=== PATIENT | female | born 1940 | race Caucasian/White ===

== ENCOUNTER 2016-08-06 08:00 | Outpatient (CLI) | payer MEDICARE, OTHER | END 2016-08-06 08:01 | disposition home or self-care (01) | LOC: LAB.WCP 08:00 | PROVIDERS: ATTEND Family Medicine | DX: N39.0 Urinary tract infection, site not specified (principal) | CPT/HCPCS: 87086 ==

== ENCOUNTER 2016-09-15 09:13 | Outpatient (CLI) | payer MEDICARE, OTHER ==
[2016-09-15 18:10] LABS: BASOPHILS % (AUTO) 1.2 %; EOSINOPHILS # (AUTO) 0.3 10^3/uL (0.0-0.7); EOSINOPHILS % (AUTO) 6.3 %; HGB - HEMOGLOBIN 13.4 g/dL (12.0-16.0); LYMPHOCYTES # (AUTO) 0.8 10^3/uL (1.5-3.5); LYMPHOCYTES % (AUTO) 19.8 %; MEAN CORPUSCULAR HGB CONC 33.5 g/dL (32.0-36.0); MEAN CORPUSCULAR VOLUME 95.6 fL (81.0-99.0); MEAN PLATELET VOLUME 7.7 fL (7.9-10.8); MONOCYTES # (AUTO) 0.3 10^3/uL (0.0-1.0); MONOCYTES % (AUTO) 7.5 %; NEUTROPHILS # (AUTO) 2.8 10^3/uL (1.5-6.6); NEUTROPHILS % (AUTO) 65.2 %; RED BLOOD COUNT 4.19 10^6/uL (4.20-5.40); UNCORRECTED WHITE BLOOD COUNT 4.3 x10^3/uL; WHITE BLOOD COUNT 4.3 x10^3/uL (4.8-10.8)
[2016-09-15 18:15] LABS: PT - PROTHROMBIN TIME 11.7 secs (9.9-12.6)
[2016-09-15 18:22] LABS: PARTIAL THROMBOPLASTIN TIME 30.2 secs (24.9-33.3)
[2016-09-15 18:36] LABS: CHOL/HDL RATIO 2.8 (<4.4); CHOLESTEROL 132 mg/dL; HDL CHOLESTEROL 48 mg/dL; LDL CHOLESTEROL,DIRECT 68 mg/dL; LDL/HDL RATIO 1.4 (<4.4); TRIGLYCERIDES 96 mg/dL; VLDL CHOLESTEROL 19 mg/dL
== END 2016-09-15 09:14 | disposition home or self-care (01) ==
LOC: LAB.S 09:13
PROVIDERS: ATTEND Internal Medicine Cardiovascular Disease
DX: E78.5 Hyperlipidemia, unspecified (principal)
CPT/HCPCS: 36415; 80061; 82550; 84450; 84460; 85025; 85610; 85730

== ENCOUNTER 2016-12-16 08:00 | Outpatient (CLI) | payer MEDICARE, OTHER ==
[2016-12-16 18:03] LABS: BILIRUBIN,URINE NEGATIVE (NEGATIVE)
[2016-12-16 18:57] LABS: UR CULTURE IF IND INDICATED; WBC,URINE >25 /HPF (0-5)
== END 2016-12-16 08:01 | disposition home or self-care (01) ==
LOC: LAB.R 08:00
PROVIDERS: ATTEND Nurse Practitioner Family
DX: N39.0 Urinary tract infection, site not specified (principal)
CPT/HCPCS: 81001; 87086

== ENCOUNTER 2017-06-22 10:20 | Emergency (ER) | payer MEDICARE, OTHER ==
[2017-06-22 10:26] VITALS: BP 134/89
--- NOTE | 2017-06-22 11:42 | XRAY Report ---
EXAM: LEFT WRIST RADIOGRAPHY EXAM DATE: 06/22/2017 11:28 AM. CLINICAL HISTORY: Trauma. Pain COMPARISON: None. TECHNIQUE: 4 views. FINDINGS: Bones: There is a nondisplaced radial styloid fracture. Ulna is intact. Joints: Degenerative change first metacarpal carpal articulation and triscaphe joint.. No subluxation s. Soft Tissues: Mild soft tissue swelling. IMPRESSION: Nondisplaced intra-articular radial styloid fracture. [facility] Referring Provider Line: [phone] SITE ID: [id number]
--- NOTE | 2017-06-22 13:09 | ED Physician Documentation ---
PD HPI UPPER EXT INJURY - Stated complaint Stated Complaint: LEFT ARM INJ - Chief complaint Chief Complaint: Ext Problem - History obtained from History obtained from: Patient - History of Present Illness Location: Left, Wrist Type of injury: Fall Where injury occurred: Home Timing - onset: How many days ago (2) Timing - duration: Days (2) Timing - details: Abrupt onset, Still present (pain at radial side wrist with bruising over whole wrist.) Worsened by: Moving, Palpating Associated symptoms: Swelling, Discolored. 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: Hysterectomy - Present Medications Home Medications: Ambulatory Orders Medication Instructions Recorded Confirmed Apixaban [Eliquis] 5 mg PO DAILY 06/22/17 06/22/17 Atorvastatin [Lipitor] 20 mg PO DAILY 06/22/17 06/22/17 Carvedilol [Coreg] 40 mg PO BID 06/22/17 06/22/17 Fluticasone/Salmeterol [Advair 1 each IH DAILY 06/22/17 06/22/17 100-50 Diskus] Multivitamin [Multiple Vitamins] 1 each PO DAILY 06/22/17 06/22/17 Ubidecarenone [Co Q-10] 10 mg PO DAILY 06/22/17 06/22/17 - Allergies Allergies/Adverse Reactions: Allergies Allergy/AdvReac Type Severity Reaction Status Date / Time No Known Drug Allergies Allergy Verified 06/22/17 10:26 - Social History Does the pt smoke?: No Smoking Status: Never smoker Does the pt drink ETOH?: No Does the pt have substance abuse?: No - Immunizations Immunizations are current?: Yes - POLST Patient has POLST: No PD ED PE NORMAL - Vitals Vital signs reviewed: Yes - General General: Alert and oriented X 3, No acute distress, Well developed/nourished - HEENT HEENT: Atraumatic - Neck Neck: Supple, no meningeal sign, No bony TTP, No adenopathy - Cardiac Cardiac: RRR, No murmur - Respiratory Respiratory: Clear bilaterally, Other (no chestwall tenderness) - Abdomen Abdomen: Soft, Non tender - Back Back: No spinal TTP - Derm Derm: Normal color, Warm and dry - Extremities Extremities: Other (left wrist tender at distal radius area with some swelling and bruising. Tender locally with less ROM due to pain. ) - Neuro Neuro: Alert and oriented X 3, No motor deficit, No sensory deficit, Normal speech Results - Vitals Vitals: Oxygen O2 Source Room air - Rads (name of study) wrist Radiology: Prelim report reviewed (radial styloid fracture, nondisplaced), EMP read contemporaneously Procedures - Splint (location) left wrist Splint applied by: Tech Type of splint: Prefab velcro wrist Other: Patient tolerated well, No complications, Neurovascular intact PD MEDICAL DECISION MAKING - ED course Complexity details: reviewed results, considered differential, d/w patient Departure - Departure Disposition: 01 Home, Self Care Clinical Impression: Accidental fall Qualifiers: Encounter type: initial encounter Qualified Code(s): W19.XXXA - Unspecified fall, initial encounter Radial styloid fracture Qualifiers: Encounter type: initial encounter Fracture type: closed Fracture alignment: nondisplaced Laterality: left Qualified Code(s): S52.515A - Nondisplaced fracture of left radial styloid process, initial encounter for closed fracture Condition: Stable Record reviewed to determine appropriate education?: Yes Instructions: ED Fx Wrist General Follow-Up: Stewart Keenan MD [Primary Care Provider] - [facility] [Provider Group] Comments: Use a wrist splint for the next 4-6 weeks and treated as a cast meaning have it on most of the time. You do have a fracture at the end of the radius which will need protecting as it heals. Follow-up with your primary care or orthopedics in about a week to have it re-x-rayed and ensure its healing in the right position still. Call today for an appointment. Use Tylenol if needed for pains. Elevate and rest the wrist often today and tomorrow to reduce swelling. Discharge Date/Time: 06/22/17 13:33
== END 2017-06-22 13:33 | disposition home or self-care (01) ==
LOC: ED 10:20
DX: S52.515A Nondisplaced fracture of left radial styloid process, initial encounter for closed fracture (principal); W10.9XXA Fall (on) (from) unspecified stairs and steps, initial encounter; Y92.009 Unspecified place in unspecified non-institutional (private) residence as the place of occurrence of the external cause; I48.91 Unspecified atrial fibrillation; Z79.01 Long term (current) use of anticoagulants
CPT/HCPCS: 99283

== ENCOUNTER 2019-10-12 09:59 | Outpatient (CLI) | payer MEDICARE, OTHER | END 2019-10-12 10:00 | disposition home or self-care (01) | LOC: LAB.S 09:59 | PROVIDERS: ATTEND Family Medicine | DX: I48.91 Unspecified atrial fibrillation (principal); E78.5 Hyperlipidemia, unspecified; L12.0 Bullous pemphigoid | CPT/HCPCS: 36415; 85651; 86038; 86140 ==

== ENCOUNTER 2020-01-20 09:39 | Outpatient (CLI) | payer MEDICARE, OTHER ==
[2020-01-20 15:31] LABS: BASOPHILS # (AUTO) 0.1 10^3/uL (0.0-0.1); BASOPHILS % (AUTO) 1.3 %; EOSINOPHILS # (AUTO) 0.5 10^3/uL (0.0-0.7); EOSINOPHILS % (AUTO) 8.4 %; HGB - HEMOGLOBIN 13.8 g/dL (12.0-16.0); LYMPHOCYTES % (AUTO) 18.4 %; MEAN CORPUSCULAR HEMOGLOBIN 30.8 pg (27.0-31.0); MEAN CORPUSCULAR HGB CONC 31.4 g/dL (32.0-36.0); MEAN CORPUSCULAR VOLUME 98.2 fL (81.0-99.0); MEAN PLATELET VOLUME 10.1 fL (7.9-10.8); MONOCYTES # (AUTO) 0.6 10^3/uL (0.0-1.0); MONOCYTES % (AUTO) 10.4 %; NEUTROPHILS # (AUTO) 3.4 10^3/uL (1.5-6.6); NEUTROPHILS % (AUTO) 61.3 %; PLT - PLATELET COUNT 314 10^3/uL (130-450); RED BLOOD COUNT 4.48 10^6/uL (4.20-5.40); RED CELL DISTRIBUTION WIDTH 13.4 % (12.0-15.0); WHITE BLOOD COUNT 5.5 x10^3/uL (4.8-10.8)
[2020-01-20 15:51] LABS: ALBUMIN 4.4 g/dL (3.2-5.5); ALBUMIN/GLOBULIN RATIO 1.7 (1.0-2.2); ALKALINE PHOSPHATASE 61 IU/L (42-121); ALT ALANINE AMINOTRANSFERASE 12 IU/L (10-60); AST ASPARTATE AMINOTRANSFERASE 20 IU/L (10-42); BILIRUBIN,TOTAL 1.1 mg/dL (0.2-1.0); BUN - BLOOD UREA NITROGEN 12 mg/dL (6-20); CALCIUM 9.3 mg/dL (8.5-10.3); CARBON DIOXIDE - CO2 28 mmol/L (21-32); CHLORIDE 101 mmol/L (101-111); CHOL/HDL RATIO 2.5 (<4.4); CHOLESTEROL 142 mg/dL; CREATININE 0.8 mg/dL (0.4-1.0); GLUCOSE 91 mg/dL (70-100); HDL CHOLESTEROL 57 mg/dL; LDL CHOLESTEROL,CALCULATED 67 mg/dL; LDL/HDL RATIO 1.2 (<4.4); SODIUM 137 mmol/L (135-145); VLDL CHOLESTEROL 18 mg/dL
== END 2020-01-20 09:40 | disposition home or self-care (01) ==
LOC: LAB.S 09:39
PROVIDERS: ATTEND Internal Medicine
DX: Z00.00 Encounter for general adult medical examination without abnormal findings (principal); E78.5 Hyperlipidemia, unspecified
CPT/HCPCS: 36415; 80053; 80061; 83721; 85025

== ENCOUNTER 2020-02-12 07:11 | Outpatient (CLI) | payer MEDICARE, OTHER ==
--- NOTE | 2020-02-15 11:18 | Ultrasound Report ---
ULTRASOUND OF LEFT AXILLA: 02/12/2020 CLINICAL: Focal left AXILLA pain. [facility] Mammograms 08/15/2015, 08/12/2013. Color flow and real-time ultrasound of the left axilla were performed. Carlson scale images of the real -time examination were reviewed. In the area of concern in the left axilla are several small lymph nodes. There is one node which is enlarged measuring 3.3 cm x 1.7 cm x 0.7 cm with a oval shape and circumsc ribed margin in the left axilla. This oval enlarged lymph node is hyperechoic with fatty hilum. Sarkis ical thickness measures 1 mm. This correlates to the reported pain. Color flow imaging demonstrates that there is vascularity present. No fluid collection or mass. IMPRESSION: PROBABLY BENIGN Enlarged left axillary lymph node in the region of pain measuring 3.3 cm x 1.7 cm x 0.7 cm. No cortic al thickening. This node is probably benign. -A follow-up left axillary ultrasound in 3 months is recommended. Last screening mammogram done in August 2015. Patient is due for screening mammogram now. This exam was interpreted at Station ID: [id number]. Electronically Signed By: Rusty Rutherford M.D. slc/:02/15/2020 10:26:27 Ultrasound BI-RADS: 3 Probably benign BI-RADS CATEGORY: (3) - 3 Ultrasound [id number] 3 month follow-up LATERALITY: (B)
== END 2020-02-12 07:12 | disposition home or self-care (01) ==
LOC: DI 07:11
PROVIDERS: ATTEND Internal Medicine
DX: R59.0 Localized enlarged lymph nodes (principal)

== ENCOUNTER 2020-02-23 11:39 | Outpatient (CLI) | payer MEDICARE, OTHER ==
[2020-02-23 12:07] LABS: ALBUMIN 4.2 g/dL (3.2-5.5); ALBUMIN/GLOBULIN RATIO 1.6 (1.0-2.2); BILIRUBIN,TOTAL 0.7 mg/dL (0.2-1.0); CALCIUM 9.3 mg/dL (8.5-10.3); CREATININE 0.9 mg/dL (0.4-1.0); TOTAL PROTEIN 6.8 g/dL (6.7-8.2)
[2020-02-23] MEDS ORDERED: IOVERSOL 320 100 ML VIAL IVP ONE ×2 (12:55→14:29)
--- NOTE | 2020-02-23 16:48 | CT Report ---
PROCEDURE: CHEST W INDICATIONS: AXILLA LYMPHADENOPATHY CONTRAST: IV CONTRAST: Optiray 320 ml: 100 PO CONTRAST: *NO PO CONTRAST TECHNIQUE: After the administration of intravenous contrast, 5 mm thick sections acquired from the pulmonary api adrienne to the posterior costophrenic angles. 7 mm thick coronal MIP reformats were acquired. For radia tion dose reduction, the following was used: automated exposure control, adjustment of mA and/or kV according to patient size. COMPARISON: Axillary ultrasound 02/12/2020. FINDINGS: Image quality: Excellent. Lungs and pleura: There is mild linear atelectasis and scarring in the lung bases. No suspicious nodu les or masses. No pleural effusions or pneumothorax. Central and peripheral airways are patent and n ormal in caliber. Mediastinum: Heart size is enlarged. There is a small pericardial effusion. No mediastinal or hilar adenopathy by size criteria. Thoracic aorta and central pulmonary arteries are normal in size. Eso phagus is normal in caliber. No hiatal hernia. Bones and chest wall: No suspicious bony lesions. No vertebral body compression fractures. No axil raffi or supraclavicular adenopathy by size criteria. There are a few small bilateral axillary lymph n odes with preserved fatty andrew noted. Multiple bilateral peripherally enhancing thyroid nodules are d emonstrated, with the largest measuring up to 2.1 cm in the left lobe. Abdomen: Visualized upper abdomen demonstrates a few small hypodensities within the visualized left kidney likely representing small cysts. IMPRESSION: 1. No evidence of axillary lymphadenopathy by size criteria. 2. Small pericardial effusion. 3. Multiple bilateral thyroid nodules measuring up to 2.1 cm on the left. Recommend further evaluatio n with thyroid ultrasound if clinically indicated. Reviewed by: Sergio Pham MD on 02/23/2020 4:47 PM PST Approved by: Sergio Pham MD on 02/23/2020 4:47 PM PST Station ID: [id number]
== END 2020-02-23 11:40 | disposition home or self-care (01) ==
LOC: DI 11:39
PROVIDERS: ATTEND Internal Medicine
DX: R59.0 Localized enlarged lymph nodes (principal); I31.3 Pericardial effusion (noninflammatory); E04.2 Nontoxic multinodular goiter; E78.5 Hyperlipidemia, unspecified
CPT/HCPCS: 36415; 71260; 80053; Q9967

== ENCOUNTER 2020-04-02 09:42 | Outpatient (CLI) | payer MEDICARE, OTHER ==
--- NOTE | 2020-04-02 15:15 | Ultrasound Report ---
PROCEDURE: Head or Neck Soft Tissue INDICATIONS: LEFT THYROID NODULE TECHNIQUE: Real-time scanning was performed of the thyroid gland, with image documentation. COMPARISON: CT chest 02/23/2020. FINDINGS: Right: Thyroid lobe measures 5 x 2.2 x 1.8 cm, and is homogeneous in echotexture. Left: Thyroid lobe measures 6.4 x 2.7 x 1.6 cm, and is homogenous in echotexture. Isthmus: 4 mm thick. Nodule number: One Location: Right superior Size: 2 x 1.7 x 1.6 cm. Composition: Prominently solid Echogenicity: Isoechoic Shape: wider than tall. Margins: Smooth Echogenic foci: None Total points: 3 ACR TI-RADS category: TR 3, mildly suspicious Nodule number: Two Location: Right mid Size: 2.5 x 2 x 1.5 cm. Composition: Prominently solid Echogenicity: Isoechoic Shape: wider than tall. Margins: Smooth Echogenic foci: None Total points: 3 ACR TI-RADS category: TR 3, mildly suspicious Nodule number: Three Location: Left inferior Size: 2.6 x 2.2 x 1.8 cm. Composition: Mixed cystic and solid Echogenicity: Hypoechoic Shape: wider than tall. Margins: Smooth Echogenic foci: Macrocalcification Total points: 4 ACR TI-RADS category: TR 4, moderately suspicious Nodule number: Four Location: Left isthmus Size: 1.2 x 1.2 x 0.7 cm. Composition: Solid Echogenicity: Hypoechoic Shape: wider than tall. Margins: Smooth Echogenic foci: None Total points: 4 ACR TI-RADS category: TR 4, moderately suspicious IMPRESSION: Multiple thyroid nodules. 1. Left inferior thyroid nodule measuring 2.6 cm, TI-RADS 4. Moderately suspicious. -FNA is recommended. 2. Right mid thyroid nodule measuring 2.5 cm, TI-RADS 3. Mildly suspicious. -FNA should be considered. 3. Additionally recommend follow-up thyroid ultrasound in one year. Reviewed by: Rusty Rutherford MD on 04/02/2020 3:14 PM PST Approved by: Rusty Rutherford MD on 04/02/2020 3:14 PM PST Station ID: [id number]
== END 2020-04-02 09:43 | disposition home or self-care (01) ==
LOC: DI 09:42
PROVIDERS: ATTEND Internal Medicine
DX: E04.2 Nontoxic multinodular goiter (principal)

== ENCOUNTER 2020-04-17 12:58 | Outpatient (CLI) | payer MEDICARE, OTHER ==
[~2020-04-17 12:58] MED LIST: BUFFERED LIDOCAINE 10 ML SYRINGE ONE
[2020-04-17] MEDS ORDERED: BUFFERED LIDOCAINE 10 ML SYRINGE IU ONE (14:57)
--- NOTE | 2020-04-18 11:08 | Ultrasound Report ---
PROCEDURE: FNA Bx w/US Gnd 1st les INDICATIONS: BILAT THYROID NODULE TECHNIQUE: The indications, alternatives, benefits, risks, and complications of the procedure were explained to the patient. Written informed consent was obtained and placed in the chart. The area of interest wa s examined sonographically and a site was chosen for ultrasound guided percutaneous sampling. The sk in was prepared and draped in the usual fashion, and anesthetized with 1% lidocaine infiltrated from the skin down to the lesion. Multiple passes were then performed, with [facility]. A bandage was applied to the area of access at completion of t he study. COMPARISON: None. FINDINGS: Location(s) of lesion(s) sampled: Right mid thyroid lobe [place]: 25 gauge hypodermic needles. Number of passes: 6 Medications: 1% lidocaine for local anaesthesia. Complications: None. IMPRESSION: Successful ultrasound-guided right thyroid nodule fine needle aspiration. Cytology results are pendin g. Reviewed by: Edin Mcrae MD on 04/18/2020 11:07 AM [facility] Approved by: Edin Mcrae MD on 04/18/2020 11:07 AM PST Station ID: [id number]
--- NOTE | 2020-04-18 11:08 | Ultrasound Report ---
PROCEDURE: FNA Bx w/US Gdn Ea Addl INDICATIONS: BILAT THYROID NODULES- BILAT FNA TECHNIQUE: The indications, alternatives, benefits, risks, and complications of the procedure were explained to the patient. Written informed consent was obtained and placed in the chart. The area of interest wa s examined sonographically and a site was chosen for ultrasound guided percutaneous sampling. The sk in was prepared and draped in the usual fashion, and anesthetized with 1% lidocaine infiltrated from the skin down to the lesion. Multiple passes were then performed, with contents emptied into an appr [facility] pathology specimen container. A bandage was applied to the area of access at completion of t he study. COMPARISON: None. FINDINGS: Location(s) of lesion(s) sampled: Left inferior thyroid lobe [place]: 25 gauge hypodermic needles. Number of passes: 6 Medications: 1% lidocaine for local anaesthesia. Complications: None. IMPRESSION: Successful ultrasound-guided left inferior thyroid lobe nodule fine needle aspiration, with cytology results pending. Reviewed by: Edin Mcrae MD on 04/18/2020 11:07 AM PST Approved by: Edin Mcrae MD on 04/18/2020 11:07 AM PST Station ID: [id number]
== END 2020-04-17 12:59 | disposition home or self-care (01) ==
LOC: DI 12:58
PROVIDERS: ATTEND Internal Medicine
DX: E04.2 Nontoxic multinodular goiter (principal)
CPT/HCPCS: 10005; 10006

== ENCOUNTER 2020-05-21 11:10 | Outpatient (CLI) | payer MEDICARE, OTHER ==
[2020-05-21 14:49] LABS: ALBUMIN 4.3 g/dL (3.2-5.5); ALBUMIN/GLOBULIN RATIO 1.7 (1.0-2.2); BILIRUBIN,TOTAL 1.1 mg/dL (0.2-1.0); CALCIUM 9.5 mg/dL (8.5-10.3); CREATININE 0.9 mg/dL (0.4-1.0); POTASSIUM 4.6 mmol/L (3.5-5.0); TOTAL PROTEIN 6.9 g/dL (6.7-8.2)
[2020-05-21 14:52] LABS: BASOPHILS # (AUTO) 0.1 10^3/uL (0.0-0.1); BASOPHILS % (AUTO) 0.8 %; EOSINOPHILS # (AUTO) 0.1 10^3/uL (0.0-0.7); EOSINOPHILS % (AUTO) 1.7 %; HCT - HEMATOCRIT 45.5 % (37.0-47.0); HGB - HEMOGLOBIN 14.9 g/dL (12.0-16.0); LYMPHOCYTES # (AUTO) 0.7 10^3/uL (1.5-3.5); LYMPHOCYTES % (AUTO) 9.3 %; MEAN CORPUSCULAR HEMOGLOBIN 31.8 pg (27.0-31.0); MEAN CORPUSCULAR HGB CONC 32.7 g/dL (32.0-36.0); MEAN PLATELET VOLUME 9.8 fL (7.9-10.8); MONOCYTES # (AUTO) 0.6 10^3/uL (0.0-1.0); MONOCYTES % (AUTO) 7.6 %; NEUTROPHILS # (AUTO) 6.2 10^3/uL (1.5-6.6); NEUTROPHILS % (AUTO) 80.3 %; PLT - PLATELET COUNT 317 10^3/uL (130-450); RED BLOOD COUNT 4.69 10^6/uL (4.20-5.40); RED CELL DISTRIBUTION WIDTH 15.6 % (12.0-15.0); WHITE BLOOD COUNT 7.7 x10^3/uL (4.8-10.8)
== END 2020-05-21 11:11 | disposition home or self-care (01) ==
LOC: LAB.S 11:10
PROVIDERS: ATTEND Internal Medicine
DX: I10 Essential (primary) hypertension (principal)
CPT/HCPCS: 36415; 80053; 85025

== ENCOUNTER 2020-07-25 07:47 | Outpatient (CLI) | payer MEDICARE, OTHER ==
[2020-07-25 14:20] LABS: BASOPHILS # (AUTO) 0.1 10^3/uL (0.0-0.1); BASOPHILS % (AUTO) 1.1 %; EOSINOPHILS # (AUTO) 0.3 10^3/uL (0.0-0.7); HCT - HEMATOCRIT 44.4 % (37.0-47.0); HGB - HEMOGLOBIN 14.1 g/dL (12.0-16.0); LYMPHOCYTES # (AUTO) 0.7 10^3/uL (1.5-3.5); LYMPHOCYTES % (AUTO) 13.3 %; MEAN CORPUSCULAR HEMOGLOBIN 32.1 pg (27.0-31.0); MEAN CORPUSCULAR HGB CONC 31.8 g/dL (32.0-36.0); MEAN CORPUSCULAR VOLUME 101.1 fL (81.0-99.0); MEAN PLATELET VOLUME 10.4 fL (7.9-10.8); MONOCYTES # (AUTO) 0.5 10^3/uL (0.0-1.0); MONOCYTES % (AUTO) 8.8 %; NEUTROPHILS % (AUTO) 71.4 %; PLT - PLATELET COUNT 288 10^3/uL (130-450); RED BLOOD COUNT 4.39 10^6/uL (4.20-5.40); WHITE BLOOD COUNT 5.6 x10^3/uL (4.8-10.8)
[2020-07-25 14:36] LABS: ALBUMIN 4.3 g/dL (3.2-5.5); ALBUMIN/GLOBULIN RATIO 1.5 (1.0-2.2); ALKALINE PHOSPHATASE 57 IU/L (42-121); ALT ALANINE AMINOTRANSFERASE 18 IU/L (10-60); AST ASPARTATE AMINOTRANSFERASE 28 IU/L (10-42); BUN - BLOOD UREA NITROGEN 15 mg/dL (6-20); CALCIUM 9.4 mg/dL (8.5-10.3); CARBON DIOXIDE - CO2 28 mmol/L (21-32); CHLORIDE 99 mmol/L (101-111); CHOL/HDL RATIO 2.8 (<4.4); CHOLESTEROL 161 mg/dL; CREATININE 0.9 mg/dL (0.4-1.0); GFR - MDRD 60 (>89); GLUCOSE 97 mg/dL (70-100); HDL CHOLESTEROL 57 mg/dL; LDL CHOLESTEROL,CALCULATED 84 mg/dL; LDL/HDL RATIO 1.5 (<4.4); POTASSIUM 4.3 mmol/L (3.5-5.0); SODIUM 137 mmol/L (135-145); TOTAL PROTEIN 7.1 g/dL (6.7-8.2); TRIGLYCERIDES 99 mg/dL; VLDL CHOLESTEROL 20 mg/dL
== END 2020-07-25 07:48 | disposition home or self-care (01) ==
LOC: LAB.S 07:47
PROVIDERS: ATTEND Internal Medicine
DX: I10 Essential (primary) hypertension (principal); E87.1 Hypo-osmolality and hyponatremia; E78.5 Hyperlipidemia, unspecified
CPT/HCPCS: 36415; 80053; 80061; 83721; 85025

== ENCOUNTER 2020-08-10 08:33 | Inpatient (IN) | payer MEDICARE, OTHER ==
[2020-08-10] MEDS ORDERED: ceFAZolin 2 GM/50 ML 2 GM/50 ML BAG IV STA (09:31)
[2020-08-10] MEDS ORDERED: SODIUM CHLORIDE 0.9% 1,000 ML IV STA (09:32)
--- NOTE | 2020-08-10 09:35 | ED Physician Documentation ---
History of Present Illness - Stated complaint Stated Complaint: SWELLING LT HAND - Chief complaint Chief Complaint: Ext Problem - History obtained from History obtained from: Patient, Family - History of Present Illness Timing: Yesterday - Additonal information Additional information: 80-year-old female developed some swelling and redness to the dorsum of the left hand yesterday and overnight this is progressed it has become painful warm erythematous and there is lymphangitic streaking present. The patient has not had a fever she has chills. She is fully immunized against Covid. Review of Systems Constitutional: reports: Chills. denies: Fever Eyes: denies: Decreased vision Ears: denies: Ear pain Nose: denies: Rhinorrhea / runny nose, Congestion Throat: denies: Sore throat Cardiac: denies: Chest pain / pressure, Palpitations Respiratory: denies: Dyspnea, Cough GI: denies: Abdominal Pain, Nausea, Vomiting : denies: Dysuria, Frequency Skin: reports: Other (discoloration of the dorsum of the left hand) Musculoskeletal: reports: Extremity pain, Extremity swelling. 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 - Present Medications Home Medications: Ambulatory Orders Medication Instructions Recorded Confirmed Apixaban [Eliquis] 5 mg PO DAILY 06/22/17 06/22/17 Atorvastatin [Lipitor] 20 mg PO DAILY 06/22/17 06/22/17 Fluticasone/Salmeterol [Advair 1 each IH DAILY 06/22/17 06/22/17 100-50 Diskus] Multivitamin [Multiple Vitamins] 1 each PO DAILY 06/22/17 06/22/17 Ubidecarenone [Co Q-10] 10 mg PO DAILY 06/22/17 06/22/17 carvediloL [Coreg] 40 mg PO BID 06/22/17 06/22/17 - Allergies Allergies/Adverse Reactions: Allergies Allergy/AdvReac Type Severity Reaction Status Date / Time No Known Drug Allergies Allergy Verified 08/10/20 09:03 - Social History Does the pt smoke?: No Smoking Status: Never smoker Does the pt drink ETOH?: No Does the pt have substance abuse?: No - Immunizations Immunizations are current?: Yes - POLST Patient has POLST: No PD ED PE NORMAL - Vitals Vital signs reviewed: Yes (hypertensive ) - General General: Alert and oriented X 3, No acute distress, Well developed/nourished - HEENT HEENT: Atraumatic, PERRL, EOMI - Neck Neck: Supple, no meningeal sign, No bony TTP - Cardiac Cardiac: Other (Irregularly irregular rate with a 1 out of 6 holosystolic murmur at the sternal border.) - Respiratory Respiratory: No respiratory distress, Clear bilaterally - Abdomen Abdomen: Normal bowel sounds, Soft, Non tender, Non distended, No organomegaly - Back Back: No CVA TTP, No spinal TTP - Derm Derm: Normal color, Warm and dry, Other (Erythema swelling and lymphangitic streaking to the left hand and arm) - Extremities Extremities: Other (Over the dorsum of the left hand to about the mid proximal phalanx there is swelling and erythema tenderness that extends to the proximal wrist and there is lymphangitic streaking extending up to the arm. There is more than 1 lymphangitic streak.) - Neuro Neuro: Alert and oriented X 3, car painter 2-12 intact, No motor deficit, No sensory deficit, Normal speech Eye Opening: Spontaneous Motor: Obeys Commands Verbal: Oriented GCS Score: 15 - Psych Psych: Normal mood, Normal affect Results - Vitals Vitals: Vital Signs - 24 hr 08/10/20 08:56 Temperature 36.9 C Heart Rate 98 Respiratory 16 Rate Blood Pressure 139/83 H O2 Saturation 95 Oxygen O2 Source Room air - Labs Labs: Laboratory Tests 08/10/20 08/10/20 08/10/20 09:46 09:46 09:46 WBC 14.2 H RBC 4.40 Hgb 14.5 Hct 44.0 MCV 100.0 H MCH 33.0 H MCHC 33.0 RDW 14.0 Plt Count 246 MPV 9.3 Neut # (Auto) 12.6 H Lymph # (Auto) 0.4 L Frontier # (Auto) 1.0 Eos # (Auto) 0.1 Baso # (Auto) 0.1 Absolute Nucleated RBC 0.00 Nucleated RBC % 0.0 Sodium 135 Potassium 3.7 Chloride 96 L Carbon Dioxide 28 Anion Gap 11.0 BUN 11 Creatinine 0.9 Estimated GFR (MDRD) 60 L Glucose 98 Lactic Acid 1.1 Calcium 9.4 Total Bilirubin 1.4 H AST 25 ALT 17 Alkaline Phosphatase 65 Total Protein 7.3 Albumin 4.6 Globulin 2.7 Albumin/Globulin Ratio 1.7 PD MEDICAL DECISION MAKING - ED course Complexity details: reviewed old records, reviewed results, re-evaluated p atient, considered differential, d/w patient ED course: 80-year-old female with history of atrial fibrillation on Eliquis and history of asthma has developed some swelling to her left hand and she has a aggressive appearing cellulitis with lymphangitic streaking and this evolves during the period of time she is in the emergency department. She has elevated white blood cell count. She does not have fever or elevated lactate. The pace of the infection is concerning and trial of outpatient antibiotic therapy is not indicated. Departure - Departure Disposition: [facility] DC/Xfer Clinical Impression: Cellulitis Qualifiers: Site of cellulitis: extremity Site of cellulitis of extremity: upper extremity Laterality: left Qualified Code(s): L03.114 - Cellulitis of left upper limb Condition: Stable
--- OUTSIDE RECORDS SUMMARY | 2020-08-10 09:49 | EXTERNAL MEDICAL SUMMARY RPT | Continuity of Care Document ---
:1940 Demographics Phone Unavailable Preferred Language Unknown Marital Status Unknown Amish Affiliation Unknown Race Unknown Ethnic Group Unknown Author Organization [place] Address [address] [phone] Phone Allergies Encounters Medications Problems Results
[2020-08-10 09:52] LABS: BASOPHILS # (AUTO) 0.1 10^3/uL (0.0-0.1); BASOPHILS % (AUTO) 0.4 %; EOSINOPHILS # (AUTO) 0.1 10^3/uL (0.0-0.7); EOSINOPHILS % (AUTO) 0.4 %; HGB - HEMOGLOBIN 14.5 g/dL (12.0-16.0); LYMPHOCYTES # (AUTO) 0.4 10^3/uL (1.5-3.5); MEAN PLATELET VOLUME 9.3 fL (7.9-10.8); MONOCYTES % (AUTO) 7.2 %; NEUTROPHILS # (AUTO) 12.6 10^3/uL (1.5-6.6); NEUTROPHILS % (AUTO) 88.6 %; PLT - PLATELET COUNT 246 10^3/uL (130-450); WHITE BLOOD COUNT 14.2 x10^3/uL (4.8-10.8)
[2020-08-10 10:06] LABS: ALBUMIN 4.6 g/dL (3.2-5.5); ALBUMIN/GLOBULIN RATIO 1.7 (1.0-2.2); BILIRUBIN,TOTAL 1.4 mg/dL (0.2-1.0); CALCIUM 9.4 mg/dL (8.5-10.3); CREATININE 0.9 mg/dL (0.4-1.0); POTASSIUM 3.7 mmol/L (3.5-5.0); TOTAL PROTEIN 7.3 g/dL (6.7-8.2)
[2020-08-10] MEDS ORDERED: ONDANSETRON 4 MG/2 ML VIAL IVP PRN (11:24)
[2020-08-10] MEDS ORDERED: MORPHINE 2 MG/ML CARPUJECT IVP PRN (11:24)
[2020-08-10] MEDS ORDERED: SODIUM CHLORIDE FLUSH 0.9% 10 ML SYRINGE IVP PRN (11:24)
[2020-08-10] MEDS ORDERED: oxyCODONE 5 MG TABLET PO PRN (11:24)
[2020-08-10] MEDS ORDERED: METOPROLOL 5 MG/5 ML VIAL IVP PRN (11:28)
--- NOTE | 2020-08-10 11:51 | HISTORY & PHYSICAL EXAMINATION ---
Chief Complaint - Chief Complaint Chief Complaint: left hand swelling and pain History of Present Illness - Admitted From Admitted From:: ER - History Obtained From Records Reviewed: [facility] History obtained from: pt Exam Limitations: no - History of Present Illness HPI Comment/Other: This is a 80-year-old female with history of atrial fibrillation on Eliquis, Hyperlipidemia, asthma who complain of pain, erythema, swelling to the dorsum of her left hand. pt report she developed swelling, warmth of her left dorsal on la st night then she felt very painful, and develop erythema lymphangitic streaking up to her left shoulder very fast. She denies injury on her hand. she denies fever, chill. Route lab show elevated white blood cell count, normal arrange lactic acid. she denies chest pain, cough, shortness of breath. Discussed the care goal with patient, patient requests full code. 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 - Family & Social History Family History: Mother: , Father: Family History Comment/Other: Patient report her father at age 90 from aging, her mother at age 82 from heart attack Social History Notes: Patient denies history of cigarette smoking, alcohol or drug issue - POLST Patient has POLST: No Meds/Allgy - Home Medications Home Medications: Ambulatory Orders Medication Instructions Recorded Confirmed Apixaban [Eliquis] 5 mg PO BID 06/22/17 08/10/20 Atorvastatin [Lipitor] 20 mg PO DAILY 06/22/17 08/10/20 Multivitamin [Multiple Vitamins] 1 each PO DAILY 06/22/17 08/10/20 Ubidecarenone [Co Q-10] 10 mg PO DAILY 06/22/17 08/10/20 carvediloL [Coreg] 40 mg PO BID 06/22/17 08/10/20 Amiodarone [Pacerone] 200 mg PO DAILY 08/10/20 08/10/20 Cholecalciferol (Vitamin D3) 25 mcg PO DAILY 08/10/20 08/10/20 [Vitamin D3] Fluticasone Propion/Salmeterol 1 inh PO BID 08/10/20 08/10/20 [Wixela 100-50 Inhub] Metoprolol Tartrate [Lopressor] 50 mg PO BID 08/10/20 08/10/20 - Allergies Allergies/Adverse Reactions: Allergies Allergy/AdvReac Type Severity Reaction Status Date / Time No Known Drug Allergies Allergy Verified 08/10/20 09:03 Review of Systems - Constitutional Constitutional: denies: Fatigue, Fever, Chills, Malaise, Night sweats - Eyes Eyes: denies: Pain, Blurred vision, Field loss, Vision loss - Ears, Nose & Throat Ears, Nose & Throat: denies: Ear pain, Nosebleeds, Bleeding gums - Cardiovascular Cariovascular: denies: Irregular heart rate, Palpitations, Chest pain, Edema, Lightheadedness, Syncope, Exertional dyspnea, Decr. exercise tolerance - Respiratory Respiratory: denies: Cough, Sputum production, Wheezing, SOB at rest, SOB with exertion - Gastrointestinal Gastrointestinal: denies: Abdominal pain, Constipation, Diarrhea, Rectal bleeding, Nausea, Vomiting - Genitourinary Genitourinary: denies: Dysuria, Urgency, Incontinence - Musculoskeletal Musculoskeletal: denies: Muscle pain, Muscle aches - Integumentary Integumentary: reports: Rash. denies: Lesions, Lumps - Neurological Neurological: denies: General weakness, Focal weakness, Headache, Dizziness, Numbness, Memory problems, Pre-existing deficit, Abnormal gait, Seizures, Incoordination, Slurred speech - Psychiatric Psychiatric: denies: Depression, Anxiety - Endocrine Endocrine: denies: Polyuria, Polyphagia - Hematologic/Lymphatic Hematologic/Lymphatic: denies: Anemia Prior Level of Functionality: Patient is independent at home Exam - Vital Signs Vital Signs: Vital Signs x48h Temp Pulse Resp BP Pulse Ox 08/10/20 11:11 98 18 115/79 96 08/10/20 08:56 36.9 C 98 16 139/83 H 95 - Physical Exam General Appearance: positive: No acute distress, Alert. negative: Lethargic Eyes Bilateral: positive: Normal inspection, PERRL, No lid inflammation ENT: positive: ENT inspection nml, No signs of dehydration. negative: Purulent nasal drainage Neck: positive: Nml inspection, Trachea midline. negative: Thyromegaly, Tracheal deviation Respiratory: positive: Chest non-tender, No respiratory distress, Breath sounds nml. negative: Wheezes, Rales Cardiovascular: positive: Regular rate & rhythm, No murmur. negative: Tachycardia, Bradycardia, Systolic murmur, Diastolic murmur Peripheral Pulses: positive: 2+ Abdomen: positive: Non-tender, Nml bowel sounds, No distention. negative: Tenderness, Guarding Back: positive: Nml inspection Skin: positive: Warm, Dry, Other (left dosrum of hand with mild swelling, mild erythma, but warmth. distal fingers with intact neurovascular status). negative: Cyanosis, Diaphoresis, Pallor Extremities: positive: Non-tender, Full ROM. negative: Calf tenderness Neurologic/Psychiatric: positive: Oriented x3, Motor nml, Sensation nml, Mood/affect nml. negative: Weakness, Sensory loss, Facial droop, Slurred/abnml speech, Depressed mood/affect Sepsis Event Note (H) - Evaluation Current Stage of Sepsis: Ruled out Conclusion/Plan - Problem List (1) Cellulitis Conclusion/Plan: Patient present cellulitis on left dorsal of the hand. Patient was treated with Ancef, patient is with good response to the antibiotics. Patient's erythema, swelling on left hand is significantly Reduced. blood culture is pending, will continue ancef IV, IVF, lab and vital monitor. Qualifiers: Site of cellulitis: extremity Site of cellulitis of extremity: upper extremity Laterality: left Qualified Code(s): L03.114 - Cellulitis of left upper limb (2) Afib Conclusion/Plan: HR is stable, will resume home Coreg, Amiodarone, Eliquis, continue tele monitor (3) HLD (hyperlipidemia) Conclusion/Plan: resume home Lipitor (4) Asthma Conclusion/Plan: stable, Albuterol PRN, resume home meds - Lab Results Fish Bones: 08/10/20 09:46 08/10/20 09:46 Core Measures - Anticipated LOS I expect patient to be DC'd or transferred within 96 hours.: Yes - DVT/VTE - Prophylaxis VTE/DVT Device ordered at admit?: Yes VTE/DVT Prophylaxis med ordered at admit?: Yes
--- OUTSIDE RECORDS SUMMARY | 2020-08-10 11:56 | EXTERNAL MEDICAL SUMMARY RPT | Continuity of Care Document ---
:1940 Demographics Phone Unavailable Preferred Language Unknown Marital Status Unknown Worship Affiliation Unknown Race Unknown Ethnic Group Unknown Author Organization [facility] Address [address] [phone] Phone Allergies Encounters Medications Problems Results
[2020-08-10 12:43] LABS: BILIRUBIN,URINE NEGATIVE (NEGATIVE); GLUCOSE, URINE (UA) NEGATIVE (NEGATIVE); KETONES,URINE (UA) 15 mg/dL (NEGATIVE); LEUKOCYTE ESTERASE, URINE NEGATIVE (NEGATIVE); NITRITE,URINE NEGATIVE (NEGATIVE); OCCULT BLOOD,URINE NEGATIVE (NEGATIVE); PROTEIN,URINE NEGATIVE (NEGATIVE); UROBILINOGEN,URINE 0.2 (NORMAL) E.U./dL (NORMAL)
[2020-08-10 12:50] LABS: BACTERIA,URINE Rare /HPF (None Seen); CLARITY,URINE CLEAR (CLEAR); RBC,URINE None Seen /HPF (0-5); SQUAMOUS EPITHELIAL CELL,UR RARE Squamous (<= Few); WBC,URINE 0-3 /HPF (0-5)
[2020-08-10] MEDS: SODIUM CHLORIDE 0.9% 1,000 ML IV SCH ×2 (12:52→21:04)
[2020-08-10 13:41] LABS: B. PARAPERTUSSIS- RESP PCR PAN NOT DETECTED; B. PERTUSSIS- RESP PCR PANEL NOT DETECTED; C. PNEUMONIAE- RESP PCR PANEL NOT DETECTED; CORONAVIRUS 229E-RESP PCR NOT DETECTED; CORONAVIRUS HKU1-RESP PCR NOT DETECTED; CORONAVIRUS NL63-RESP PCR NOT DETECTED; CORONAVIRUS OC43-RESP PCR NOT DETECTED; HUMAN METAPNEUMOVIRUS NOT DETECTED; INFLUENZA A- RESP PCR PANEL NOT DETECTED; INFLUENZA B - RESP PCR PANEL NOT DETECTED; M. PNEUMONIAE- RESP PCR PANEL NOT DETECTED; PARAINFLUENZA VIRUS 1 NOT DETECTED; PARAINFLUENZA VIRUS 2 NOT DETECTED; PARAINFLUENZA VIRUS 3 NOT DETECTED; PARAINFLUENZA VIRUS 4 NOT DETECTED; RHINOVIRUS/ENTEROVIRUS NOT DETECTED; RSV- RESP PCR PANEL NOT DETECTED; SARS-CoV-2 -RESP PCR PANEL NOT DETECTED
--- NOTE | 2020-08-10 15:41 | PHARMACY PROGRESS NOTE ---
- Best Possible Medication History Admit Date and Time: 08/10/20 1124 Processed by: Pharmacy Medication History completed: Yes Patient Interview: Completed Secondary Source(s): Physician records, Pharmacy records (PATIENT ABLE TO CONFIRM HOME MEDICATIONS.) As the person ultimately responsible for medication therapy, providers are able to order a medication from an existing home medication list in [facility] via the "Reconcile Routine" prior to Confirmation of that medication by ground support equipment fitter. Such practice is discouraged except when the physician, in their clinical judgment, deems that a medical need exists for a medication without regard to previous use.
[2020-08-10] MEDS: ACETAMINOPHEN 325 MG TABLET PO PRN ×2 (16:09→20:58)
[2020-08-10] MEDS: SODIUM CHLORIDE FLUSH 0.9% 10 ML SYRINGE IVP SCH (16:09)
[2020-08-10] MEDS ORDERED: carvediloL 3.125 MG TABLET PO SCH ×2 (16:10→21:00)
[2020-08-10] MEDS: METOPROLOL TARTRATE 50 MG TABLET PO SCH (16:57)
[2020-08-10] MEDS: ceFAZolin 2 GM/50 ML 2 GM/50 ML BAG IV SCH (17:37)
[2020-08-10] MEDS ORDERED: ceFAZolin 1 GM in SODIUM CHLORIDE 0.9% MINIBAG 100 ML IV SCH (18:00)
[2020-08-10] MEDS: APIXABAN 5 MG TABLET PO SCH (20:58)
[2020-08-10] MEDS: ATORVASTATIN 10 MG TABLET PO SCH (20:58)
[2020-08-10] MEDS ORDERED: SALMETEROL PO SCH (21:00)
[2020-08-10] MEDS ORDERED: FLUTICASONE PROPION PO SCH (21:00)
[2020-08-10] MEDS ORDERED: APIXABAN 5 MG TABLET PO SCH (21:00)
[2020-08-10] MEDS ORDERED: [UNRECOGNIZED DRUG - OTHER] PO SCH (21:00)
[2020-08-11] MEDS: SODIUM CHLORIDE FLUSH 0.9% 10 ML SYRINGE IVP SCH ×3 (00:03→17:55)
[2020-08-11] MEDS: ceFAZolin 2 GM/50 ML 2 GM/50 ML BAG IV SCH ×3 (04:33→17:54)
[2020-08-11 05:05] LABS: BASOPHILS % (AUTO) 0.4 %; EOSINOPHILS # (AUTO) 0.1 10^3/uL (0.0-0.7); EOSINOPHILS % (AUTO) 0.6 %; HCT - HEMATOCRIT 36.9 % (37.0-47.0); LYMPHOCYTES % (AUTO) 9.9 %; MEAN CORPUSCULAR HEMOGLOBIN 32.8 pg (27.0-31.0); MEAN CORPUSCULAR HGB CONC 32.5 g/dL (32.0-36.0); MEAN CORPUSCULAR VOLUME 100.8 fL (81.0-99.0); MEAN PLATELET VOLUME 9.9 fL (7.9-10.8); MONOCYTES # (AUTO) 0.9 10^3/uL (0.0-1.0); MONOCYTES % (AUTO) 8.8 %; NEUTROPHILS # (AUTO) 7.8 10^3/uL (1.5-6.6); PLT - PLATELET COUNT 202 10^3/uL (130-450); RED BLOOD COUNT 3.66 10^6/uL (4.20-5.40); RED CELL DISTRIBUTION WIDTH 14.3 % (12.0-15.0); WHITE BLOOD COUNT 9.7 x10^3/uL (4.8-10.8)
[2020-08-11 05:13] LABS: CALCIUM 8.3 mg/dL (8.5-10.3); CREATININE 0.6 mg/dL (0.4-1.0); POTASSIUM 3.7 mmol/L (3.5-5.0)
[2020-08-11] MEDS: BUDESONIDE 0.5 MG/2 ML NEB INH SCH ×3 (05:42→20:24)
[2020-08-11] MEDS: METOPROLOL TARTRATE 50 MG TABLET PO SCH ×2 (08:51→20:11)
[2020-08-11] MEDS: AMIODARONE 200 MG TABLET PO SCH (08:51)
[2020-08-11] MEDS: APIXABAN 5 MG TABLET PO SCH ×2 (08:52→20:11)
[2020-08-11] MEDS ORDERED: ENOXAPARIN 40 MG/0.4 ML SYRINGE SUBQ SCH (09:00)
--- NOTE | 2020-08-11 13:07 | PROVIDER PROGRESS NOTE ---
Subjective - Prog Note Date Prog Note Date: 08/11/20 Prog Note Time: 13:07 - Subjective Pt reports feeling: Improved Subjective: She was sleeping this morning at around 10 AM when I woke her up. She says that she feels tremendously better. She had not realized that she was feeling so fatigued or achy all over with yesterday's admission. This morning she feels normal. Her hand swelling has improved and the redness that was all the way up the proximal forearm almost to the antecubital fossa has receded quite a bit. The redness is now only to the proximal wrist area. The lymphangitic erythema and redness above the antecubital fossa into the biceps has resolved. She denies chest pain, palpitations, shortness of breath. No fever since yesterday. Current Medications - Current Medications Current Medications: Active Medications Acetaminophen (Acetaminophen 325 Mg Tablet) 650 mg PO Q4HR PRN PRN Reason: Pain 1 to 4 Last Admin: 08/10/20 20:58 Dose: 650 mg Documented by: Albuterol (Albuterol Neb 2.5 Mg/3 Ml) 2.5 mg INH RTQ4H PRN PRN Reason: Wheezing Amiodarone HCl (Amiodarone 200 Mg Tablet) 200 mg PO DAILY [facility] Last Admin: 08/11/20 08:51 Dose: 200 mg Documented by: Apixaban (Apixaban 5 Mg Tablet) 5 mg PO BID [facility] Last Admin: 08/11/20 08:52 Dose: 5 mg Documented by: Atorvastatin Calcium (Atorvastatin 10 Mg Tablet) 20 mg PO QPM [facility] Last Admin: 08/10/20 20:58 Dose: 20 mg Documented by: Budesonide (Budesonide 0.5 Mg/2 Ml Neb) 0.5 mg INH RTBID [facility] Last Admin: 08/11/20 07:22 Dose: 0.5 mg Documented by: Cefazolin Sodium/Dextrose (Ancef 2 Gm/50 Ml) 2 gm in 50 mls @ 100 mls/hr IV Q8H [facility] Last Infusion: 08/11/20 09:36 Dose: Infused Documented by: Metoprolol Tartrate (Metoprolol 5 Mg/5 Ml Vial) 5 mg IVP Q6H PRN PRN Reason: Tachycardia Metoprolol Tartrate (Metoprolol Tartrate 50 Mg Tablet) 50 mg PO BID [facility] Last Admin: 08/11/20 08:51 Dose: 50 mg Documented by: Morphine Sulfate (Morphine 2 Mg/Ml Carpuject) 2 mg IVP Q2HR PRN PRN Reason: Pain 8 to 10 Ondansetron HCl (Ondansetron 4 Mg/2 Ml Vial) 4 mg IVP Q6HR PRN PRN Reason: Nausea / Vomiting Oxycodone HCl (Oxycodone 5 Mg Tablet) 5 mg PO Q4HR PRN PRN Reason: Pain 5 to 7 Sodium Chloride (Sodium Chloride Flush 0.9% 10 Ml Syringe) 10 ml IVP PRN PRN PRN Reason: NEEDED PER PROVIDER ORDERS Sodium Chloride (Sodium Chloride Flush 0.9% 10 Ml Syringe) 10 ml IVP 0100,0900,1700 [facility] Last Admin: 08/11/20 08:53 Dose: Not Given Documented by: Apixaban [Eliquis] 5 mg PO BID 06/22/17 Atorvastatin [Lipitor] 20 mg PO DAILY 06/22/17 Multivitamin [Multiple Vitamins] 1 each PO DAILY 06/22/17 Ubidecarenone [Co Q-10] 10 mg PO DAILY 06/22/17 Amiodarone [Pacerone] 200 mg PO DAILY 08/10/20 Cholecalciferol (Vitamin D3) [Vitamin D3] 25 mcg PO DAILY 08/10/20 Fluticasone Propion/Salmeterol [Wixela 100-50 Inhub] 1 inh PO BID 08/10/20 Metoprolol Tartrate [Lopressor] 50 mg PO BID 08/10/20 Objective - Vital Signs/Intake & Output Reviewed Vital Signs: Yes Vital Signs: Vital Signs x48h Temp Pulse Pulse Resp BP BP Pulse Ox 08/11/20 12:00 36.8 C 75 18 105/62 97 08/11/20 09:59 36.7 C 81 18 100 08/11/20 08:51 106/55 L 08/11/20 08:00 36.7 C 81 18 102/58 L 93 08/11/20 07:27 75 16 Intake & Output: Intake & Output 08/08/20 08/09/20 08/10/20 08/11/20 23:59 23:59 23:59 23:59 Intake Total 2280 1440 Output Total 1000 1350 Balance 1280 90 - Objective General Appearance: positive: No acute distress, Alert Eyes Bilateral: positive: PERRL, EOMI ENT: positive: No signs of dehydration Neck: positive: No JVD. negative: Stiff neck Respiratory: positive: No respiratory distress. negative: Wheezes, Rales, Rhonchi Cardiovascular: positive: Regular rate & rhythm. negative: Gallop/S4, Friction rub Abdomen: positive: Non-tender, No organomegaly, Nml bowel sounds, No distention Skin: positive: Warm, Dry Extremities: positive: Other (Left dorsum of hand reddish and blue. Still slightly hot. Redness extends proximally up the wrist but not much more than that. She can flex at the wrist. Flex and extend at the metacarpal and proximal interfamily in general joints.) Neurologic/Psychiatric: positive: Oriented x3, CN's nml (2-12), Motor nml - Lab Results Fish Bones: 08/11/20 04:25 08/11/20 04:25 Other Labs: Lab Results x24hrs 08/11/20 08/11/20 08/10/20 Range/Units 04:25 04:25 19:04 WBC 9.7 (4.8-10.8) x10^3/uL RBC 3.66 L (4.20-5.40) 10^6/uL Hgb 12.0 (12.0-16.0) g/dL Hct 36.9 L (37.0-47.0) % MCV 100.8 H (81.0-99.0) fL MCH 32.8 H (27.0-31.0) pg MCHC 32.5 (32.0-36.0) g/dL RDW 14.3 (12.0-15.0) % Plt Count 202 (130-450) 10^3/uL MPV 9.9 (7.9-10.8) fL Neut # (Auto) 7.8 H (1.5-6.6) 10^3/uL Lymph # (Auto) 1.0 L (1.5-3.5) 10^3/uL [place] # (Auto) 0.9 (0.0-1.0) 10^3/uL Eos # (Auto) 0.1 (0.0-0.7) 10^3/uL Baso # (Auto) 0.0 (0.0-0.1) 10^3/uL Absolute Nucleated RBC 0.00 x10^3/uL Nucleated RBC % 0.0 /100WBC Sodium 137 (135-145) mmol/L Potassium 3.7 (3.5-5.0) mmol/L Chloride 105 (101-111) mmol/L Carbon Dioxide 26 (21-32) mmol/L Anion Gap 6.0 (6-13) BUN 11 (6-20) mg/dL Creatinine 0.6 (0.4-1.0) mg/dL Estimated GFR (MDRD) 96 (>89) Glucose 93 (70-100) mg/dL POC Whole Bld Glucose Cancelled Calcium 8.3 L (8.5-10.3) mg/dL Nasal Adenovirus (PCR) Nasal B. parapertussis DNA (PCR) Nasal Coronavir 229E PCR Nasal Coronavir HKU1 PCR Nasal Coronavir NL63 PCR Nasal Coronavir OC43 PCR Nasal Enterovir/Rhinovir PCR Nasal Influenza B PCR Nasal Influenza A PCR Nasal Parainfluen 1 PCR Nasal Parainfluen 2 PCR Nasal Parainfluen 3 PCR Nasal Parainfluen 4 PCR Nasal RSV (PCR) Nasal B.pertussis DNA PCR Nasal C.pneumoniae (PCR) Peng Human Metapneumo PCR Nasal M.pneumoniae (PCR) Nasal SARS-CoV-2 (PCR) 08/10/20 Range/Units 11:37 WBC (4.8-10.8) x10^3/uL RBC (4.20-5.40) 10^6/uL Hgb (12.0-16.0) g/dL Hct (37.0-47.0) % MCV (81.0-99.0) fL MCH (27.0-31.0) pg MCHC (32.0-36.0) g/dL RDW (12.0-15.0) % Plt Count (130-450) 10^3/uL MPV (7.9-10.8) fL Neut # (Auto) (1.5-6.6) 10^3/uL Lymph # (Auto) (1.5-3.5) 10^3/uL [place] # (Auto) (0.0-1.0) 10^3/uL Eos # (Auto) (0.0-0.7) 10^3/uL Baso # (Auto) (0.0-0.1) 10^3/uL Absolute Nucleated RBC x10^3/uL Nucleated RBC % /100WBC Sodium (135-145) mmol/L Potassium (3.5-5.0) mmol/L Chloride (101-111) mmol/L Carbon Dioxide (21-32) mmol/L Anion Gap (6-13) BUN (6-20) mg/dL Creatinine (0.4-1.0) mg/dL Estimated GFR (MDRD) (>89) Glucose (70-100) mg/dL POC Whole Bld Glucose Calcium (8.5-10.3) mg/dL Nasal Adenovirus (PCR) NOT DETECTED Nasal B. parapertussis DNA (PCR) NOT DETECTED Nasal Coronavir 229E PCR NOT DETECTED Nasal Coronavir HKU1 PCR NOT DETECTED Nasal Coronavir NL63 PCR NOT DETECTED Nasal Coronavir OC43 PCR NOT DETECTED Nasal Enterovir/Rhinovir PCR NOT DETECTED Nasal Influenza B PCR NOT DETECTED Nasal Influenza A PCR NOT DETECTED Nasal Parainfluen 1 PCR NOT DETECTED Nasal Parainfluen 2 PCR NOT DETECTED Nasal Parainfluen 3 PCR NOT DETECTED Nasal Parainfluen 4 PCR NOT DETECTED Nasal RSV (PCR) NOT DETECTED Nasal B.pertussis DNA PCR NOT DETECTED Nasal C.pneumoniae (PCR) NOT DETECTED Peng Human Metapneumo PCR NOT DETECTED Nasal M.pneumoniae (PCR) NOT DETECTED Nasal SARS-CoV-2 (PCR) NOT DETECTED ABX Reporting Has patient been on IV antibiotics over the past 48 hours?: Yes Sepsis Event Note (H) - Evaluation Current Stage of Sepsis: Ruled out Assessment/Plan - Problem List (1) Cellulitis Impression: The left dorsum of the hand was very swollen, red, hot. The redness and heat spread proximally up the forearm with lymphangitic spread all the way up in the biceps region. She was treated with Ancef, and she has had an excellent response. She was already responding yesterday evening with less edema and erythema. This morning all of her redness and heat is still the dorsum of the hand and just proximal to the wrist. The lymphangitic spread up the brachial radialis, up to biceps has resolved. Blood cultures are negative. Her last fever was at 4:00 yesterday afternoon 38.3. Her white cell count started at 14.2 and is now 9.7. Plan: Continue Ancef today and switch her over to Keflex tonight. Watch overnight and see how she does with possible discharge tomorrow morning. I will follow fechristopher r, white cell count, and physical exam. Qualifiers: Site of cellulitis: extremity Site of cellulitis of extremity: upper extremity Laterality: left Qualified Code(s): L03.114 - Cellulitis of left upper limb (2) Afib Conclusion/Plan: Rate is controlled in the 70s. She is on Pacerone, Eliquis and Coreg and those are being continued. (3) HLD (hyperlipidemia) Conclusion/Plan: resume home Lipitor (4) Asthma Conclusion/Plan: stable, Albuterol PRN, resume home meds Qualifiers: Qualified Code(s): L03.114 - Cellulitis of left upper limb
[2020-08-11] MEDS: ALBUTEROL NEB 2.5 MG/3 ML INH PRN (16:25)
[2020-08-11] MEDS: ATORVASTATIN 10 MG TABLET PO SCH (20:11)
[2020-08-11] MEDS: cephALEXin 250 MG CAPSULE PO SCH (22:32)
[2020-08-12 05:13] LABS: BASOPHILS % (AUTO) 0.7 %; EOSINOPHILS # (AUTO) 0.2 10^3/uL (0.0-0.7); HCT - HEMATOCRIT 36.3 % (37.0-47.0); HGB - HEMOGLOBIN 11.7 g/dL (12.0-16.0); LYMPHOCYTES # (AUTO) 0.8 10^3/uL (1.5-3.5); LYMPHOCYTES % (AUTO) 12.8 %; MEAN CORPUSCULAR HEMOGLOBIN 32.1 pg (27.0-31.0); MEAN CORPUSCULAR HGB CONC 32.2 g/dL (32.0-36.0); MEAN CORPUSCULAR VOLUME 99.7 fL (81.0-99.0); MEAN PLATELET VOLUME 10.1 fL (7.9-10.8); MONOCYTES # (AUTO) 0.6 10^3/uL (0.0-1.0); MONOCYTES % (AUTO) 10.8 %; NEUTROPHILS # (AUTO) 4.3 10^3/uL (1.5-6.6); NEUTROPHILS % (AUTO) 72.5 %; PLT - PLATELET COUNT 204 10^3/uL (130-450); RED BLOOD COUNT 3.64 10^6/uL (4.20-5.40); RED CELL DISTRIBUTION WIDTH 14.2 % (12.0-15.0); WHITE BLOOD COUNT 5.9 x10^3/uL (4.8-10.8)
[2020-08-12 05:17] LABS: CALCIUM 8.4 mg/dL (8.5-10.3); CREATININE 0.7 mg/dL (0.4-1.0); POTASSIUM 3.7 mmol/L (3.5-5.0)
[2020-08-12] MEDS: cephALEXin 250 MG CAPSULE PO SCH (06:49)
[2020-08-12] MEDS: SODIUM CHLORIDE FLUSH 0.9% 10 ML SYRINGE IVP SCH ×2 (06:49→09:08)
[2020-08-12] MEDS: ALBUTEROL NEB 2.5 MG/3 ML INH PRN (07:22)
[2020-08-12] MEDS: BUDESONIDE 0.5 MG/2 ML NEB INH SCH (07:22)
--- NOTE | 2020-08-12 08:47 | Discharge Plan ---
Discharge Plan Problem Reviewed?: Yes Disposition: Home, Self Care Condition: Stable Prescriptions: cephALEXin [Keflex] 500 mg PO Q6HR #20 cap Diet: Regular Activity Restrictions: Activity as Tolerated Shower Restrictions: No Driving Restrictions: No Instruction Topics: Cefazolin injection, Cephalexin tablets or capsules, Cellulitis Dc Health Concerns: You came to the emergency room because you had started having pain and swelling and redness of the top part of your left hand. We examined you in the emergency room and you had a high white cell count indicating infection with the infection being a hand infection. You also had a low-grade fever. Once we placed you on antibiotics for skin infection, all of your lab and vital signs returned to normal. We changed you to pill form of antibiotics overnight and you did well. This morning your hand is much better. All of the redness and swelling that was in your forearm and going up into your upper arm has resolved. Plan of Treatment: 1. Please complete your antibiotic therapy. We want you to have at least 5 more days of pills. You will take Keflex 1 tablet every 6 hours as needed. 2. Some people develop diarrhea with antibiotics. To avoid that you might want to start taking a probiotic, generic, [id number] twice a day. 3. Please see your primary care provider, Dr. Antonio, in the next 2 weeks for follow-up of the hand. Care Goals: To have complete resolution of your hand infection Assessment: Patient is happy to go home, will follow through with care plan No Smoking: If you smoke, Please STOP! Call for help. Follow-up with: Kam Antonio MD [Primary Care Provider] -
[2020-08-12] MEDS: METOPROLOL TARTRATE 50 MG TABLET PO SCH (09:08)
[2020-08-12] MEDS: APIXABAN 5 MG TABLET PO SCH (09:08)
[2020-08-12] MEDS: AMIODARONE 200 MG TABLET PO SCH (09:08)
[2020-08-12 09:09] VITALS: BP 126/71
--- NOTE | 2020-08-12 18:45 | DISCHARGE SUMMARY ---
"Discharge Summary Admit Date: 08/10/20 Discharge Date: 08/12/20 Discharging Provider: Lamar Portillo MD Primary Care Provider: Kam Antonio MD Condition at Discharge: Stable Discharge Disposition: 01 Home, Self Care - DIAGNOSES Discharge Diagnoses with Status of Each Condition: 1. Left hand cellulitis 2. Chronic atrial fibrillation 4. Hyperlipidemia 5. Asthma without exacerbation - HPI History of Present Illness: This is a 80-year-old female with history of atrial fibrillation on Eliquis, Hyperlipidemia, asthma who complain of pain, erythema, swelling to the dorsum of her left hand. pt report she developed swelling, warmth of her left dorsal on last night then she felt very painful, and develop erythema lymphangitic streaking up to her left shoulder very fast. She denies injury on her hand. she denies fever, chill. Route lab show elevated white blood cell count, normal arrange lactic acid. she denies chest pain, cough, shortness of breath. Discussed the care goal with patient, patient requests full code. 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 - HOSPITAL COURSE Hospital Course: Absolutely delightful elderly female. Had quick response to the first days use of Ancef with redness and swelling diminishing considerably within a few hours. After 36 hours she is transition to oral antibiotics. Her white cell count is now normal, no fever. The redness and lymphangitic spread above her antecubital fossa has gone away. Redness and swelling of the forearm is gone away and she is left with only minimal proximal wrist swelling and swelling and heat on the dorsum of her left hand. At discharge temperature was 36.6, heart rate 106. Blood pressure 126/71. Respirations 18. 95% on room air. She is 5 feet 5 inches tall and weighs 86.5 kg. Alert oriented siddharth elderly female. Neck is supple. Lungs are clear to auscultation and percussion and she had no problems with her asthma while she was here. Her medications for lipidemia and A. fib were continued while here including her Eliquis. Extremities are without edema. The left wrist is flexin g, she is able to flex and extend at the metacarpal and proximal interphalangeal joints of her left hand. Mild edema over the top of her dorsum. Mild heat. No redness. Greater than 30 minutes spent spent coordinating discharge. She is discharged in stable condition. - ALLERGIES Allergies/Adverse Reactions: Allergies Allergy/AdvReac Type Severity Reaction Status Date / Time No Known Drug Allergies Allergy Verified 08/10/20 09:03 - MEDICATIONS Home Medications: Ambulatory Orders Medication Instructions Recorded Confirmed Apixaban [Eliquis] 5 mg PO BID 06/22/17 08/10/20 Atorvastatin [Lipitor] 20 mg PO DAILY 06/22/17 08/10/20 Multivitamin [Multiple Vitamins] 1 each PO DAILY 06/22/17 08/10/20 Ubidecarenone [Co Q-10] 10 mg PO DAILY 06/22/17 08/10/20 Amiodarone [Pacerone] 200 mg PO DAILY 08/10/20 08/10/20 Cholecalciferol (Vitamin D3) 25 mcg PO DAILY 08/10/20 08/10/20 [Vitamin D3] Fluticasone Propion/Salmeterol 1 inh PO BID 08/10/20 08/10/20 [Wixela 100-50 Inhub] Metoprolol Tartrate [Lopressor] 50 mg PO BID 08/10/20 08/10/20 Acetaminophen [Tylenol] 650 mg PO Q4HR PRN tablet 08/12/20 cephALEXin [Keflex] 500 mg PO Q6HR #20 cap 08/12/20 - LABS Result Diagrams: 08/12/20 04:20 08/12/20 04:20 - SEPSIS Current Stage of Sepsis: Ruled out"
--- OUTSIDE RECORDS SUMMARY | 2020-08-14 14:21 | EXTERNAL MEDICAL SUMMARY RPT | Continuity of Care Document ---
:1940 Demographics Phone Unavailable Preferred Language Unknown Marital Status Unknown [employer] Affiliation Unknown Race Unknown Ethnic Group Unknown Author Organization [facility] Address [address] [phone] Phone Allergies Encounters Medications Problems Results
== END 2020-08-12 10:00 | disposition home or self-care (01) | DRG 603 ==
LOC: ED 08:33 → MS3 11:18 → UNDOADMOB 11:18 → OBSVTOIN 11:24 → INTOOBSV 11:24 → MS3 11:24 → UNDODISIN 08-12 09:30
PROVIDERS: ADMIT Nurse Practitioner Gerontology; ATTEND Specialist
DX: L03.114 Cellulitis of left upper limb (principal); I48.91 Unspecified atrial fibrillation; I48.20 Chronic atrial fibrillation, unspecified; Z79.01 Long term (current) use of anticoagulants; Z20.822 Contact with and (suspected) exposure to COVID-19; E78.5 Hyperlipidemia, unspecified; J45.909 Unspecified asthma, uncomplicated
CPT/HCPCS: 36415; 80048; 80053; 81001; 83605; 85025; 87040; 87631; 94640; 99284; 99285; A9270; J0690; J7626; 0202U; 87086

== ENCOUNTER 2020-11-23 07:09 | Outpatient (CLI) | payer MEDICARE, OTHER ==
[2020-11-23 14:52] LABS: BASOPHILS # (AUTO) 0.1 10^3/uL (0.0-0.1); BASOPHILS % (AUTO) 1.3 %; EOSINOPHILS # (AUTO) 0.3 10^3/uL (0.0-0.7); EOSINOPHILS % (AUTO) 6.1 %; LYMPHOCYTES # (AUTO) 0.8 10^3/uL (1.5-3.5); LYMPHOCYTES % (AUTO) 13.9 %; MEAN CORPUSCULAR HEMOGLOBIN 31.7 pg (27.0-31.0); MEAN CORPUSCULAR HGB CONC 31.8 g/dL (32.0-36.0); MEAN CORPUSCULAR VOLUME 99.5 fL (81.0-99.0); MONOCYTES # (AUTO) 0.6 10^3/uL (0.0-1.0); MONOCYTES % (AUTO) 10.2 %; NEUTROPHILS # (AUTO) 3.8 10^3/uL (1.5-6.6); NEUTROPHILS % (AUTO) 68.3 %; PLT - PLATELET COUNT 308 10^3/uL (130-450); RED BLOOD COUNT 4.42 10^6/uL (4.20-5.40); RED CELL DISTRIBUTION WIDTH 14.5 % (12.0-15.0); WHITE BLOOD COUNT 5.6 x10^3/uL (4.8-10.8)
[2020-11-23 15:33] LABS: ALBUMIN 4.3 g/dL (3.2-5.5); ALBUMIN/GLOBULIN RATIO 1.5 (1.0-2.2); CALCIUM 9.3 mg/dL (8.5-10.3); POTASSIUM 4.4 mmol/L (3.5-5.0); TOTAL PROTEIN 7.1 g/dL (6.7-8.2)
== END 2020-11-23 07:10 | disposition home or self-care (01) ==
LOC: LAB.S 07:09
PROVIDERS: ATTEND Internal Medicine
DX: I10 Essential (primary) hypertension (principal)
CPT/HCPCS: 36415; 80053; 85025

== ENCOUNTER 2021-01-10 07:48 | Day surgery (SDC) | payer MEDICARE, OTHER ==
[~2021-01-10 07:48] MED LIST changes: -BUFFERED LIDOCAINE 10 ML SYRINGE ONE; +CYCLOPENTOLATE 1% OPHTH DROPS 2 ML ONE; +KETOROLAC 0.45% OPHTH DROPS ONE; +PHENYLEPHRINE 2.5% OPHTH 2 ML DROPS ONE; +PROPARACAINE 0.5% OPHTH DROPS 15 ML ONE
[2021-01-10] MEDS ORDERED: LACTATED RINGERS 1,000 ML IV ONE ×2 (08:26→09:31)
--- NOTE | 2021-01-10 08:34 | ANESTHESIA ---
Pre-Anesthesia VS, & Labs - Diagnosis cataract - Procedure PhacoIOL Vital Signs: Temp Pulse Resp BP Pulse Ox 36.3 C L 83 16 131/91 H 97 01/10/21 08:00 01/10/21 08:00 01/10/21 08:00 01/10/21 08:00 01/10/21 08:00 Height: 5 ft 5 in Weight (kg): 97.8 kg Body Mass Index: 35.9 BMI Classification: Obese - NPO >8 hours - Is Patient ?: No Home Medications and Allergies Apixaban [Eliquis] 5 mg PO BID 06/22/17 Atorvastatin [Lipitor] 20 mg PO DAILY 06/22/17 Multivitamin [Multiple Vitamins] 1 each PO DAILY 06/22/17 Ubidecarenone [Co Q-10] 30 mg PO DAILY 06/22/17 Amiodarone [Pacerone] 200 mg PO DAILY 08/10/20 Cholecalciferol (Vitamin D3) [Vitamin D3] 25 mcg PO DAILY 08/10/20 Fluticasone Propion/Salmeterol [Wixela 100-50 Inhub] 1 inh PO BID 08/10/20 Metoprolol Tartrate [Lopressor] 50 mg PO BID 08/10/20 Allergies/Adverse Reactions: Allergies Allergy/AdvReac Type Severity Reaction Status Date / Time No Known Drug Allergies Allergy Verified 08/10/20 09:03 Anes History & Medical History - Anesthetic History Anesthesia Complications: reports: No previous complications Family history of Anesthesia Complications: Denies Family history of Malignant Hyperthermia: Denies - Medical History Cardiovascular: reports: Hypertension, High cholesterol, Atrial fibrillation Pulmonary: reports: Asthma, Sleep apnea Gastrointestinal: reports: None Urinary: reports: None Neuro: reports: None Musculoskeletal: reports: Osteoarthritis Endocrine/Autoimmune: reports: None Blood Disorders: reports: None Skin: reports: None Smoking Status: Never smoker - Surgical History Eyes Ears Nose Throat (EENT): reports: Tonsil/Adenoidectomy Gynecologic: reports: section Orthopedic: reports: Knee replacement Exam General: Alert, Oriented x3, Cooperative Dental: WNL Mouth Openin Fingerbreadth Neck Mobility: Normal Mallampati classification: II Thyromental Distance: 4-6 cm Respiratory: Lungs clear Cardiovascular: Regular rate Plan Anesthesia Type: MAC Consent for Procedure(s) Verified and Reviewed: Yes Code Status: Attempt Resuscitation ASA classification: 3-Severe systemic disease Is this case an emergency?: No
[2021-01-10] MEDS ORDERED: MIDAZOLAM 2 MG/2 ML VIAL ONE (08:48)
[2021-01-10] MEDS ORDERED: BRIMONIDINE 0.2% OPHTH DROPS 5 ML OPTH ONE (09:05)
[2021-01-10] MEDS ORDERED: EPINEPHrine 1 MG/ML AMP IR ONE (09:05)
[2021-01-10] MEDS ORDERED: PROPARACAINE 0.5% OPHTH DROPS 15 ML EACHEYE ONE (09:06)
[2021-01-10] MEDS ORDERED: TIMOLOL 0.5% OPHTH DROPS OPTH ONE (09:06)
[2021-01-10] MEDS ORDERED: BSS/LIDOCAINE/EPINEPHRINE 1 ML SYRINGE IO ONE (09:06)
[2021-01-10] MEDS ORDERED: TRIAMCIN/MOXIFLOX OPHTHALMIC 0.6 ML VIAL IO ONE ×2 (09:06→13:38)
[2021-01-10] MEDS ORDERED: VANCOMYCIN OPHTHALMI 8MG/0.8ML 8 MG/0.8 ML SYRINGE IO ONE ×2 (09:07→13:39)
--- NOTE | 2021-01-10 09:31 | OPERATIVE REPORT ---
Operative Report - Other Other Information/Narrative: Date of Surgery: 01/10/21 Preop Dx: Visually significant cataract right eye. This was the first cataract surgery. Postop Dx: Same Procedure: Phacoemulsification with posterior chamber toric intraocular lens implant right eye Surgeon: Dr. Hugo Wilkinson Anesthesia: Monitored anesthesia care Complications: None Operative Indications: This is a 80-year-old F with progressive vision loss in the right eye due to 3-4+ nuclear sclerotic cataract. Best corrected visual acuity was 20/50 with glare to light perception vision in the right eye. Indications for surgery were: - Overall decrease in vision - Difficulty seeing street signs - Difficulty driving in low light or at night - Difficulty driving at night because of headlights from other vehicles - Difficulty with glare or bright lights in any situation - Decreased acuity with firearms The patient was consented at length concerning the risks and benefits of cataract surgery after which the patient expressed a desire to proceed with surgery. Operative Procedure: The patients cornea was marked in the pre-surgical area to indicate the axis for the toric intraocular lens. The patient was taken into OR#3 and placed under monitored anesthesia care. A surgical time-out was conducted confirming correct patient, correct procedure, and correct surgical site. The patient was given topical anesthesia and then prepped and draped in the usual sterile fashion. The eye was entered at the 6 and 3 oclock positions. Intracameral Shugarcaine was injected into the anterior chamber followed by a dispersive viscoelastic. A continuous-tear curvilinear capsulorhexis was performed. The nucleus was hydrodissected and phacoemulsified. The cortex was evacuated using automated infusion and aspiration. A cohesive viscoelastic was injected into the capsular bag and a 17.5 diopter toric intraocular lens was inserted into the bag and rotated to axis 093. Infusion and aspiration were used to evacuate the viscoelastic materials from the eye and the IOL was verified to remain on axis. The wounds were hydrated and the eye inflated to physiologic pressure using balanced salt solution. Approximately 0.25ml of a mixture of triamcinolone and moxifloxacin was injected trans- sclerally into the vitreous in the inferotemporal quadrant using a 30 gauge cannula. An additional 0.55ml of a mixture of triamcinolone, moxifloxacin, and vancomycin was injected subconjunctivally in the superior quadrant for infection and inflammation prophylaxis. Wound integrity was checked with Weck-Ruap sponges and the IOL axis was once again verified to be on the correct axis. The patient was taken from the operating room in good condition and given post-op instructions.
[2021-01-10 09:44] VITALS: BP 134/82
[2021-01-10] MEDS ORDERED: EPINEPHrine 1 MG/ML AMP ONE (13:38)
[2021-01-10] MEDS ORDERED: BRIMONIDINE 0.2% OPHTH DROPS 5 ML ONE (13:38)
[2021-01-10] MEDS ORDERED: TIMOLOL 0.5% OPHTH DROPS ONE (13:39)
[2021-01-10] MEDS ORDERED: BSS/LIDOCAINE/EPINEPHRINE 1 ML SYRINGE ONE (13:39)
== END 2021-01-10 07:49 | disposition home or self-care (01) ==
LOC: SDS 07:48
PROVIDERS: ATTEND Ophthalmology
DX: H25.11 Age-related nuclear cataract, right eye (principal); E66.9 Obesity, unspecified; Z68.35 Body mass index [BMI] 35.0-35.9, adult; I48.91 Unspecified atrial fibrillation
CPT/HCPCS: 66984; A9270; J3490; J7120; V2632

== ENCOUNTER 2021-05-24 09:09 | Outpatient (CLI) | payer MEDICARE, OTHER ==
[2021-05-24 15:34] LABS: BASOPHILS # (AUTO) 0.1 10^3/uL (0.0-0.1); BASOPHILS % (AUTO) 0.8 %; EOSINOPHILS # (AUTO) 0.3 10^3/uL (0.0-0.7); EOSINOPHILS % (AUTO) 4.2 %; HCT - HEMATOCRIT 45.8 % (37.0-47.0); HGB - HEMOGLOBIN 14.9 g/dL (12.0-16.0); LYMPHOCYTES % (AUTO) 13.1 %; MEAN CORPUSCULAR HGB CONC 32.5 g/dL (32.0-36.0); MEAN CORPUSCULAR VOLUME 98.3 fL (81.0-99.0); MEAN PLATELET VOLUME 10.4 fL (7.9-10.8); MONOCYTES # (AUTO) 0.6 10^3/uL (0.0-1.0); MONOCYTES % (AUTO) 8.4 %; NEUTROPHILS # (AUTO) 5.6 10^3/uL (1.5-6.6); NEUTROPHILS % (AUTO) 73.4 %; PLT - PLATELET COUNT 298 10^3/uL (130-450); RED BLOOD COUNT 4.66 10^6/uL (4.20-5.40); WHITE BLOOD COUNT 7.7 x10^3/uL (4.8-10.8)
[2021-05-24 15:43] LABS: ALBUMIN 4.1 g/dL (3.2-5.5); ALBUMIN/GLOBULIN RATIO 1.2 (1.0-2.2); ALKALINE PHOSPHATASE 54 IU/L (42-121); ALT ALANINE AMINOTRANSFERASE 15 IU/L (10-60); AST ASPARTATE AMINOTRANSFERASE 24 IU/L (10-42); BUN - BLOOD UREA NITROGEN 15 mg/dL (6-20); CALCIUM 9.7 mg/dL (8.5-10.3); CARBON DIOXIDE - CO2 28 mmol/L (21-32); CHLORIDE 98 mmol/L (101-111); CHOL/HDL RATIO 2.5 (<4.4); CHOLESTEROL 143 mg/dL; CREATININE 0.8 mg/dL (0.4-1.0); GFR - MDRD 69 (>89); GLUCOSE 95 mg/dL (70-100); HDL CHOLESTEROL 58 mg/dL; LDL CHOLESTEROL,CALCULATED 64 mg/dL; LDL/HDL RATIO 1.1 (<4.4); SODIUM 135 mmol/L (135-145); TOTAL PROTEIN 7.4 g/dL (6.7-8.2); TRIGLYCERIDES 104 mg/dL; VLDL CHOLESTEROL 21 mg/dL
== END 2021-05-24 09:10 | disposition home or self-care (01) ==
LOC: LAB.S 09:09
PROVIDERS: ATTEND Internal Medicine
DX: I10 Essential (primary) hypertension (principal); E78.5 Hyperlipidemia, unspecified
CPT/HCPCS: 36415; 80053; 80061; 83721; 85025

== ENCOUNTER 2021-06-06 09:59 | Day surgery (SDC) | payer MEDICARE, OTHER ==
[2021-06-06] MEDS ORDERED: LACTATED RINGERS 1,000 ML IV ONE ×2 (10:14→10:57)
[2021-06-06] MEDS ORDERED: fentaNYL 100 MCG/2 ML VIAL ONE (10:26)
[2021-06-06] MEDS ORDERED: MIDAZOLAM 2 MG/2 ML VIAL ONE (10:26)
--- NOTE | 2021-06-06 10:38 | ANESTHESIA ---
Pre-Anesthesia VS, & Labs - Diagnosis left eye nuclear sclerotic cataract - Procedure left eye cataract extraction with IOL implant Vital Signs: Temp Pulse Resp BP Pulse Ox 36.4 C L 72 15 146/104 H 98 06/06/21 10:08 06/06/21 10:08 06/06/21 10:08 06/06/21 10:08 06/06/21 10:08 Height: 5 ft 5 in Weight (kg): 89 kg Body Mass Index: 32.6 BMI Classification: Obese - NPO >8 hours - Is Patient ?: No Home Medications and Allergies Apixaban [Eliquis] 5 mg PO BID 06/22/17 Atorvastatin [Lipitor] 20 mg PO DAILY 06/22/17 Multivitamin [Multiple Vitamins] 1 each PO DAILY 06/22/17 Ubidecarenone [Co Q-10] 30 mg PO DAILY 06/22/17 Amiodarone [Pacerone] 200 mg PO DAILY 08/10/20 Cholecalciferol (Vitamin D3) [Vitamin D3] 25 mcg PO DAILY 08/10/20 Fluticasone Propion/Salmeterol [Wixela 100-50 Inhub] 1 inh PO BID 08/10/20 Metoprolol Tartrate [Lopressor] 50 mg PO BID 08/10/20 Allergies/Adverse Reactions: Allergies Allergy/AdvReac Type Severity Reaction Status Date / Time meloxicam Allergy Rash Verified 06/06/21 10:15 Anes History & Medical History - Anesthetic History Anesthesia Complications: reports: No previous complications - Medical History Cardiovascular: reports: Hypertension, High cholesterol, Atrial fibrillation Pulmonary: reports: Asthma, Shortness of breath, Sleep apnea Gastrointestinal: reports: None Urinary: reports: None Neuro: reports: None Musculoskeletal: reports: Osteoarthritis Endocrine/Autoimmune: reports: None Blood Disorders: reports: None Skin: reports: None Smoking Status: Never smoker Psychosocial: reports: No issues indicated History of Cancer?: No - Surgical History Eyes Ears Nose Throat (EENT): reports: Cataracts, Tonsil/Adenoidectomy Gynecologic: reports: section, Hysterectomy Orthopedic: reports: Knee replacement Exam General: Alert, Oriented x3, Cooperative, No acute distress Mouth Openin Fingerbreadth Neck Mobility: Normal Mallampati classification: III Thyromental Distance: 4-6 cm Mental/Cognitive Status: Alert/Oriented X3, Normal for patient Plan Anesthesia Type: MAC Consent for Procedure(s) Verified and Reviewed: Yes Code Status: Attempt Resuscitation ASA classification: 3-Severe systemic disease Is this case an emergency?: No
[2021-06-06] MEDS ORDERED: BRIMONIDINE 0.2% OPHTH DROPS 5 ML OPTH ONE (10:50)
[2021-06-06] MEDS ORDERED: TIMOLOL 0.5% OPHTH DROPS OPTH ONE (10:51)
[2021-06-06] MEDS ORDERED: EPINEPHrine 1 MG/ML AMP IR ONE (10:51)
[2021-06-06] MEDS ORDERED: TRIAMCIN/MOXIFLOX OPHTHALMIC 0.6 ML VIAL IO ONE ×2 (10:52→11:29)
[2021-06-06] MEDS ORDERED: PROPARACAINE 0.5% OPHTH DROPS 15 ML EACHEYE ONE (10:52)
[2021-06-06] MEDS ORDERED: VANCOMYCIN OPHTHALMI 8MG/0.8ML 8 MG/0.8 ML SYRINGE IO ONE (10:52)
[2021-06-06] MEDS ORDERED: BSS/LIDOCAINE/EPINEPHRINE 1 ML SYRINGE IO ONE (10:52)
[2021-06-06 11:01] VITALS: BP 137/99
--- NOTE | 2021-06-06 11:07 | OPERATIVE REPORT ---
Operative Report - Other Other Information/Narrative: Date of Surgery: 06/06/21 Preop Dx: Visually significant cataract left eye. Cataract surgery was performed in the right eye on . Postop Dx: Same Procedure: Phacoemulsification with posterior chamber intraocular lens implant left eye Surgeon: Dr. Hugo Wilkinson Anesthesia: Monitored anesthesia care Complications: None Operative Indications: This is a 81-year-old F with progressive vision loss in the left eye due to 3+ nuclear sclerotic cataract. Best corrected visual acuity was 20/40 with glare to hand motion vision in the left eye. Indications for surgery were: - Overall decrease in vision - Difficulty reading - Difficulty seeing words, closed captions, or game scores on TV - Difficulty seeing street signs - Difficulty driving in low light or at night - Difficulty driving at night because of headlights from other vehicles - Difficulty with glare or bright lights in any situation The patient was consented at length concerning the risks and benefits of cataract surgery after which the patient expressed a desire to proceed with surgery. Operative Procedure: The patient was taken into OR#3 and placed under monitored anesthesia care. A surgical time-out was conducted confirming correct patient, correct procedure, and correct surgical site. The patient was given topical anesthesia and then prepped and draped in the usual sterile fashion. The eye was entered at the 6 and 3 oclock positions. Intracameral Shugarcaine was injected into the anterior chamber followed by a dispersive viscoelastic. A continuous-tear curvilinear capsulorhexis was performed. The nucleus was hydrodissected and phacoemulsified. The cortex was evacuated using automated infusion and aspiration. A cohesive viscoelastic was injected into the capsular bag and a 17.5 diopter intraocular lens was inserted into the bag. Infusion and aspiration were used to evacuate the viscoelastic materials from the eye. The wounds were hydrated and the eye inflated to physiologic pressure using balanced salt solution. Approximately 0.25ml of a mixture of triamcinolone and moxifloxacin was injected trans-sclerally into the vitreous in the inferotemporal quadrant using a 30 gauge cannula. An additional 0.55ml of a mixture of triamcinolone, moxifloxacin, and vancomycin was injected subconjunct ivally in the superior quadrant for infection and inflammation prophylaxis. Wound integrity was checked with Weck-Rupa sponges. The patient was taken from the operating room in good condition and given post-op instructions.
[2021-06-06] MEDS ORDERED: EPINEPHrine 1 MG/ML AMP ONE (11:29)
[2021-06-06] MEDS ORDERED: BSS/LIDOCAINE/EPINEPHRINE 1 ML VIAL ONE (11:29)
[2021-06-06] MEDS ORDERED: BRIMONIDINE 0.2% OPHTH DROPS 5 ML ONE (11:29)
[2021-06-06] MEDS ORDERED: TIMOLOL 0.5% OPHTH DROPS ONE (11:29)
--- NOTE | 2021-06-06 13:43 | ANESTHESIA POST OP EVALUATION ---
Anesthesia Post Eval - Post Anesthesia Eval Vitals: Last Vital Signs Temp 36.3 C L 06/06/21 10:57 Pulse 79 06/06/21 11:00 Resp 12 06/06/21 11:00 BP 137/99 H 06/06/21 11:00 Pulse Ox 97 06/06/21 11:00 CV Function Including HR & BP: Stable Pain Control: Satisfactory Nausea & Vomiting: Negative Mental Status: Baseline Respiratory Status: Airway Patent Hydration Status: Satisfactory Anesthesia Complications: None
== END 2021-06-06 10:00 | disposition home or self-care (01) ==
LOC: SDS 09:59
PROVIDERS: ATTEND Ophthalmology
DX: H25.12 Age-related nuclear cataract, left eye (principal); Z98.41 Cataract extraction status, right eye; E66.9 Obesity, unspecified; Z68.32 Body mass index [BMI] 32.0-32.9, adult; I48.91 Unspecified atrial fibrillation; G47.30 Sleep apnea, unspecified
CPT/HCPCS: 66984; A9270; J3490; J7120

== ENCOUNTER 2021-07-08 04:13 | Outpatient (CLI) | payer MEDICARE, OTHER | END 2021-07-08 04:14 | disposition critical access hospital (66) | LOC: EMS 04:13 | DX: R10.84 Generalized abdominal pain (principal); R53.83 Other fatigue; R53.1 Weakness | CPT/HCPCS: A0425; A0429 ==

== ENCOUNTER 2021-07-08 04:47 | Emergency (ER) | payer MEDICARE, OTHER ==
[2021-07-08] MEDS: SODIUM CHLORIDE 0.9% 1,000 ML IV STA (05:17)
[2021-07-08] MEDS: HYDROmorphone 0.5 MG/0.5 ML SYRINGE IVP STA (05:20)
--- NOTE | 2021-07-08 05:24 | ED Physician Documentation ---
PD HPI ABD PAIN - Stated complaint Stated Complaint: EPIGASTRIC PX - Chief complaint Chief Complaint: Abd Pain - History obtained from History obtained from: Patient - Additional information Additional information: The patient comes to the emergency department via EMS for chief complaint of epigastric pain that started around 2300 tonight. The patient states she had been feeling tired this evening so went to bed, but was not having any pain at the time. She states she never really got to sleep and then noticed that the pain came on. She states it was fairly slow. She has never had pain like this before, and states that she was feeling fine yesterday. The patient states that the pain radiates from her epigastrium to her back. She describes it as a 5 out of 10 and just an ache. The patient denies any nausea or vomiting. No diarrhea. She has not been constipated. No dysuria. No chest symptoms, such as chest pain, shortness of breath, or cough. The patient states that the pain also seems to radiate into her lower abdomen. No other complaints at this time. Review of Systems Ten Systems: 10 systems reviewed and negative Constitutional: reports: Reviewed and negative Eyes: reports: Reviewed and negative Ears: reports: Reviewed and negative Nose: reports: Reviewed and negative Throat: reports: Reviewed and negative Cardiac: reports: Reviewed and negative Respiratory: reports: Reviewed and negative GI: reports: Abdominal Pain : reports: Reviewed and negative Skin: reports: Reviewed and negative Musculoskeletal: reports: Reviewed and negative Neurologic: reports: Reviewed and negative Psychiatric: reports: Reviewed and negative Endocrine: reports: Reviewed and negative Immunocompromised: reports: Reviewed and negative PD PAST MEDICAL HISTORY - Past Medical History Past Medical History: Yes Cardiovascular: Hypertension, High cholesterol, Atrial fibrillation Respiratory: Asthma, Shortness of breath, Sleep apnea Neuro: None Endocrine/Autoimmune: None GI: None : None HEENT: Macular degeneration Psych: None Musculoskeletal: Osteoarthritis Derm: None - Past Surgical History Past Surgical History: Yes Ortho: Knee replacement /[employer]: section, Hysterectomy HEENT: Cataracts, Tonsil/Adenoidectomy - Present Medications Home Medications: Ambulatory Orders Medication Instructions Recorded Confirmed Apixaban [Eliquis] 5 mg PO BID 06/22/17 07/08/21 Atorvastatin [Lipitor] 20 mg PO DAILY 06/22/17 07/08/21 Multivitamin [Multiple Vitamins] 1 each PO DAILY 06/22/17 07/08/21 Ubidecarenone [Co Q-10] 30 mg PO DAILY 06/22/17 07/08/21 Cholecalciferol (Vitamin D3) 25 mcg PO DAILY 08/10/20 07/08/21 [Vitamin D3] Fluticasone Propion/Salmeterol 1 inh PO BID 08/10/20 07/08/21 [Wixela 100-50 Inhub] Metoprolol Tartrate [Lopressor] 50 mg PO BID 08/10/20 07/08/21 - Allergies Allergies/Adverse Reactions: Allergies Allergy/AdvReac Type Severity Reaction Status Date / Time meloxicam Allergy Rash Verified 07/08/21 05:21 - Social History Does the pt smoke?: No Smoking Status: Never smoker Does the pt drink ETOH?: No Does the pt have substance abuse?: No - Immunizations Immunizations are current?: Yes - POLST Patient has POLST: No PD ED PE NORMAL - Vitals Vital signs reviewed: Yes - General General: Alert and oriented X 3, No acute distress, Well developed/nourished, Other (The patient appears well, talking easily and not in any apparent significant discomfort.) - HEENT HEENT: Atraumatic, PERRL, EOMI, Moist mucous membranes - Neck Neck: Supple, no meningeal sign - Cardiac Cardiac: No murmur, Strong equal pulses, Other (Irregular rate and rhythm) - Respiratory Respiratory: No respiratory distress, Clear bilaterally - Abdomen Abdomen: Soft, Non distended, Other (Mild diffuse abdominal tenderness, worse in the epigastric region. No rebound or guarding.) - Derm Derm: Normal color, Warm and dry, No rash - Extremities Extremities: No deformity, No edema - Neuro Neuro: Alert and oriented X 3, manager mobility 2-12 intact, Normal speech - Psych Psych: Normal mood, Normal affect Results - Vitals Vitals: Vital Signs - 24 hr 07/08/21 07/08/21 07/08/21 04:57 05:36 05:42 Temperature 36.1 C L Heart Rate 75 84 81 Respiratory 20 20 23 Rate Blood Pressure 160/105 H 150/105 H 128/67 O2 Saturation 98 97 98 07/08/21 07/08/21 05:55 06:48 Temperature 36.8 C Heart Rate 75 78 Respiratory 17 28 H Rate Blood Pressure 128/67 151/100 H O2 Saturation 97 97 Oxygen O2 Source Room air - EKG (time done) 0503 Rate: Rate (enter#) (78) Rhythm: Atrial fibrillation [place]: Normal QRS: Normal Ischemia: Normal ST segments Compare to prior EKG: Old EKG unavailable Computer interpretation: Agree with computer - Labs Labs: Laboratory Tests 07/08/21 07/08/21 05:25 05:25 WBC 6.7 RBC 4.36 Hgb 14.0 Hct 42.3 MCV 97.0 MCH 32.1 H MCHC 33.1 RDW 14.1 Plt Count 225 MPV 9.4 Neut # (Auto) 4.9 Lymph # (Auto) 0.7 L [place]oard # (Auto) 0.6 Eos # (Auto) 0.3 Baso # (Auto) 0.1 Absolute Nucleated RBC 0.00 Nucleated RBC % 0.0 Sodium 136 Potassium 4.1 Chloride 101 Carbon Dioxide 26 Anion Gap 9.0 BUN 16 Creatinine 0.6 Estimated GFR (MDRD) 96 Glucose 99 Calcium 8.9 Total Bilirubin 1.0 AST 21 ALT 12 Alkaline Phosphatase 50 Total Protein 6.8 Albumin 3.8 Globulin 3.0 Albumin/Globulin Ratio 1.3 Lipase 29 - Rads (name of study) Ct abd/pelvis Radiology: Final report received, EMP read indepedently, See rad report (nad) PD MEDICAL DECISION MAKING - ED course Complexity details: reviewed old records, reviewed results, re-evaluated patient, considered differential, d/w patient, d/w family ED course: The patient was treated symptomatically in the emergency department and worked up with laboratory studies and EKG. EKG showed atrial fibrillation which is chronic for this patient. Labs were unremarkable. She was worked up with CT scan of the abdomen and pelvis, as well, and this showed no acute findings. The patient was found to be feeling much better after 0.5 mg Dilaudid and a GI cocktail and was deemed stable for discharge home. We have discussed the usual indications for follow-up and return. Departure - Departure Disposition: Home, Self Care Clinical Impression: Abdominal pain Qualifiers: Abdominal location: upper abdomen, unspecified Qualified Code(s): R10.10 - Upper abdominal pain, unspecified Condition: Stable Instructions: ED Abdominal Pain Female Non-Specific Abdominal Pain Comments: Your labs, CT, and EKG all look fairly good. You continue to be in atrial fibrillation, which is chronic for you. There is no evidence of an emergent cause of your abdominal pain. Please follow-up with your primary doctor as needed.
[2021-07-08 05:32] LABS: BASOPHILS # (AUTO) 0.1 10^3/uL (0.0-0.1); BASOPHILS % (AUTO) 0.9 %; EOSINOPHILS # (AUTO) 0.3 10^3/uL (0.0-0.7); EOSINOPHILS % (AUTO) 4.9 %; HCT - HEMATOCRIT 42.3 % (37.0-47.0); LYMPHOCYTES # (AUTO) 0.7 10^3/uL (1.5-3.5); LYMPHOCYTES % (AUTO) 11.1 %; MEAN CORPUSCULAR HEMOGLOBIN 32.1 pg (27.0-31.0); MEAN CORPUSCULAR HGB CONC 33.1 g/dL (32.0-36.0); MEAN PLATELET VOLUME 9.4 fL (7.9-10.8); MONOCYTES # (AUTO) 0.6 10^3/uL (0.0-1.0); MONOCYTES % (AUTO) 9.6 %; NEUTROPHILS # (AUTO) 4.9 10^3/uL (1.5-6.6); NEUTROPHILS % (AUTO) 73.4 %; PLT - PLATELET COUNT 225 10^3/uL (130-450); RED BLOOD COUNT 4.36 10^6/uL (4.20-5.40); RED CELL DISTRIBUTION WIDTH 14.1 % (12.0-15.0); WHITE BLOOD COUNT 6.7 x10^3/uL (4.8-10.8)
[2021-07-08 05:45] LABS: ALBUMIN 3.8 g/dL (3.2-5.5); ALBUMIN/GLOBULIN RATIO 1.3 (1.0-2.2); CALCIUM 8.9 mg/dL (8.5-10.3); CREATININE 0.6 mg/dL (0.4-1.0); POTASSIUM 4.1 mmol/L (3.5-5.0); TOTAL PROTEIN 6.8 g/dL (6.7-8.2)
[2021-07-08] MEDS: LIDOCAINE VISCOUS 2% 15 ML UDC MM STA (05:58)
[2021-07-08] MEDS: MAG HYDROX/AL HYDROX/SIMETH 30 ML UDC PO STA (05:58)
[2021-07-08] MEDS ORDERED: IOVERSOL 320 50 ML VIAL ONE (06:12)
[2021-07-08] MEDS: IOVERSOL 320 50 ML VIAL IVP ONE (06:44)
[2021-07-08 07:43] VITALS: BP 130/97
--- NOTE | 2021-07-08 08:49 | CT Report ---
PROCEDURE: Abdomen/Pelvis W INDICATIONS: abdominal pain, upper and diffuse CONTRAST: IV CONTRAST: Optiray 320 ml: 100 PO CONTRAST: *NO PO CONTRAST TECHNIQUE: After the administration of IV contrast, 5 mm thick sections acquired from the diaphragms to the symp hysis. 5 mm thick coronal and sagittal reformats were acquired. For radiation dose reduction, the f ollowing was used: automated exposure control, adjustment of mA and/or kV according to patient size. COMPARISON: Chest CT 02/23/2020 FINDINGS: Image quality: Excellent. ABDOMEN: Lung bases: Scattered nodular opacities are present within the visualized portions of the lungs bilat erally with the largest in the right base measuring 2 cm. These are new compared to 2020. Heart size is enlarged. Solid organs: Liver is mildly enlarged with steatosis. Spleen is in size and enhancement. Gallbl[place] er demonstrates dependent stones without wall thickening Biliary system is non dilated. Pancreas en hances normally. No adrenal nodules. Kidneys demonstrate normal size and enhancement, without hydro nephrosis. Left renal low-attenuation foci are present most consistent with cysts. Peritoneum and bowel: No free fluid or air. Colonic diverticula are present. There are mildly dilat ed fluid-filled loops of small bowel with greatest AP dimension measuring 3.4 cm. Appendix is normal. Nodes and vessels: No retroperitoneal or mesenteric adenopathy by size criteria. Aorta and inferior vena cava are normal in size. Miscellaneous: No ventral hernias. PELVIS: Genitourinary: Bladder wall thickness is normal. Miscellaneous: No inguinal hernias or adenopathy. Bones: No suspicious bony lesions. No vertebral body compression fractures. IMPRESSION: Mildly dilated fluid-filled loops of small bowel suggestive of ileus versus developing partial small bowel obstruction. Cholelithiasis without imaging evidence of cholecystitis. Diverticulosis. Bibasilar pulmonary nodules as described above, new compared to 2020. These could be related to infec tion or inflammation. However, other etiologies cannot be excluded. Recommend correlation to patient' s symptoms and short interval imaging follow-up after appropriate therapy if felt to be related to in fection or inflammation. Otherwise, consider further workup for potential metastatic disease includin g PET scan or short interval CT follow-up in 6-8 weeks. The above findings are concordant with preliminary report. Reviewed by: Lissy Cedeno MD on 07/08/2021 8:48 AM PDT Approved by: Lissy Cedeno MD on 07/08/2021 8:48 AM PDT Station ID: [id number]
== END 2021-07-08 07:46 | disposition home or self-care (01) ==
LOC: EDUNIT# → ED 04:47
DX: R10.10 Upper abdominal pain, unspecified (principal)
CPT/HCPCS: 36415; 74177; 80053; 83690; 85025; 93005; 96374; 99283; 99284; A9270; J1170

== ENCOUNTER 2021-07-09 21:36 | Inpatient (IN) | payer MEDICARE, OTHER ==
--- NOTE | 2021-07-09 21:55 | ED Physician Documentation ---
PD HPI ABD PAIN - Stated complaint Stated Complaint: ABD PX - History obtained from History obtained from: Patient - History of Present Illness Timing - onset: How many days ago (2) Timing - details: Gradual onset, Waxing and waning Pain level now: 8 Quality: Pain Location: All over / everywhere Improved by: Other (no ameliorating factors) Worsened by: Other (no exacerbating factors) Associated symptoms: Nausea, Vomiting, Constipation (last BM 2-3 days ago). No: Fever, Diarrhea Similar symptoms before: Has not had sx before Recently seen: Emergency Dept - Additional information Additional information: c/o abdominal pain since Thursday night (2 days ago), gradual onset, gradually worsening in intensity. She was T+R from this ED yesterday for these symptoms and discharged after unrevealing workup that included blood tests and CT A/P. Her symptoms progressed and she began to experience nausea and vomiting approximately 12 hours prior to [facility]'s ED visit. Earlier today her son brought her to [place] emergency department due to the worsening symptoms but after 5-6 hours in waiting room, she left without being seen. She presents at this time for progression of the abdominal pain, nausea/vomiting, unable to tolerate any PO including sips of liquids. Denies h/o similar symptoms. Review of Systems Constitutional: reports: Fatigue. denies: Fever, Chills, Sweats Eyes: reports: Reviewed and negative Ears: reports: Reviewed and negative Nose: reports: Reviewed and negative Throat: reports: Reviewed and negative Cardiac: reports: Reviewed and negative Respiratory: reports: Dyspnea. denies: Cough GI: reports: Abdominal Pain, Abdominal Swelling, Nausea, Vomiting, Constipation. 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, Hysterectomy HEENT: Cataracts, Tonsil/Adenoidectomy - Present Medications Home Medications: Ambulatory Orders Medication Instructions Recorded Confirmed Apixaban [Eliquis] 5 mg PO BID 06/22/17 07/09/21 Atorvastatin [Lipitor] 20 mg PO DAILY 06/22/17 07/09/21 Multivitamin [Multiple Vitamins] 1 each PO DAILY 06/22/17 07/09/21 Ubidecarenone [Co Q-10] 30 mg PO DAILY 06/22/17 07/09/21 Cholecalciferol (Vitamin D3) 25 mcg PO DAILY 08/10/20 07/09/21 [Vitamin D3] Fluticasone Propion/Salmeterol 1 inh PO BID 08/10/20 07/09/21 [Wixela 100-50 Inhub] Metoprolol Tartrate [Lopressor] 50 mg PO BID 08/10/20 07/09/21 - Allergies Allergies/Adverse Reactions: Allergies Allergy/AdvReac Type Severity Reaction Status Date / Time meloxicam Allergy Rash Verified 07/09/21 21:58 - Social History Does the pt smoke?: No Smoking Status: Never smoker Does the pt drink ETOH?: No Does the pt have substance abuse?: No - Immunizations Immunizations are current?: Yes - POLST Patient has POLST: No PD ED PE NORMAL - Vitals Vital signs reviewed: Yes - General General: Alert and oriented X 3, Well developed/nourished, Other (appears uncomfortable, listless) - HEENT HEENT: Other (dry mucous membranes) - Neck Neck: Supple, no meningeal sign - Cardiac Cardiac: No murmur - Respiratory Respiratory: No respiratory distress, Other (trace end-expiratory wheeze bilaterally) - Abdomen Abdomen: Soft - Back Back: No CVA TTP - Derm Derm: Normal color, Warm and dry - Extremities Extremities: No edema PD ED PE EXPANDED - Cardiac Cardiac: Irregularly irregular - Abdomen Abdomen: Decreased BS, Distended, Tender to palpation (mild), Generalized/diffuse. No: Rebound, Guarding Results - Vitals Vitals: Vital Signs - 24 hr 07/09/21 07/09/21 07/09/21 21:56 22:24 22:29 Temperature 35.8 C L Heart Rate 93 101 H 122 H Respiratory 18 22 20 Rate Blood Pressure 125/84 H 129/86 H O2 Saturation 93 90 L 07/09/21 07/09/21 07/09/21 22:41 22:44 23:17 Temperature Heart Rate 96 102 H 89 Respiratory 24 23 18 Rate Blood Pressure O2 Saturation 91 L 93 95 07/10/21 07/10/21 00:24 01:08 Temperature 36.8 C Heart Rate 94 96 Respiratory 21 20 Rate Blood Pressure 112/82 H 135/101 H O2 Saturation 95 96 Oxygen O2 Source Nasal cannula Oxygen Flow Rate 3 - Labs Labs: Laboratory Tests 07/09/21 07/09/21 07/09/21 22:22 22:22 22:22 WBC 10.1 RBC 4.93 Hgb 16.0 Hct 47.1 H MCV 95.5 MCH 32.5 H MCHC 34.0 RDW 14.2 Plt Count 305 MPV 9.9 Neut # (Auto) 8.4 H Lymph # (Auto) 0.5 L [place] # (Auto) 1.2 H Eos # (Auto) 0.0 Baso # (Auto) 0.0 Absolute Nucleated RBC 0.00 Nucleated RBC % 0.0 Sodium 137 Potassium 4.0 Chloride 95 L Carbon Dioxide 27 Anion Gap 15.0 H BUN 46 H Creatinine 1.1 H Estimated GFR (MDRD) 48 L Glucose 165 H Lactic Acid 3.1 H* Calcium 9.8 Total Bilirubin 1.6 H AST 34 ALT 19 Alkaline Phosphatase 54 Total Protein 7.8 Albumin 4.5 Globulin 3.3 Albumin/Globulin Ratio 1.4 Lipase 24 Nasal Adenovirus (PCR) Nasal B. parapertussis DNA (PCR) Nasal Coronavir 229E PCR Nasal Coronavir HKU1 PCR Nasal Coronavir NL63 PCR Nasal Coronavir OC43 PCR Nasal Enterovir/Rhinovir PCR Nasal Influenza B PCR Nasal Influenza A PCR Nasal Parainfluen 1 PCR Nasal Parainfluen 2 PCR Nasal Parainfluen 3 PCR Nasal Parainfluen 4 PCR Nasal RSV (PCR) Nasal B.pertussis DNA PCR Nasal C.pneumoniae (PCR) Peng Human Metapneumo PCR Nasal M.pneumoniae (PCR) Nasal SARS-CoV-2 (PCR) 07/09/21 22:27 WBC RBC Hgb Hct MCV MCH MCHC RDW Plt Count MPV Neut # (Auto) Lymph # (Auto) [place] # (Auto) Eos # (Auto) Baso # (Auto) Absolute Nucleated RBC Nucleated RBC % Sodium Potassium Chloride Carbon Dioxide Anion Gap BUN Creatinine Estimated GFR (MDRD) Glucose Lactic Acid Calcium Total Bilirubin AST ALT Alkaline Phosphatase Total Protein Albumin Globulin Albumin/Globulin Ratio Lipase Nasal Adenovirus (PCR) NOT DETECTED Nasal B. parapertussis DNA (PCR) NOT DETECTED Nasal Coronavir 229E PCR NOT DETECTED Nasal Coronavir HKU1 PCR NOT DETECTED Nasal Coronavir NL63 PCR NOT DETECTED Nasal Coronavir OC43 PCR NOT DETECTED Nasal Enterovir/Rhinovir PCR NOT DETECTED Nasal Influenza B PCR NOT DETECTED Nasal Influenza A PCR NOT DETECTED Nasal Parainfluen 1 PCR NOT DETECTED Nasal Parainfluen 2 PCR NOT DETECTED Nasal Parainfluen 3 PCR NOT DETECTED Nasal Parainfluen 4 PCR NOT DETECTED Nasal RSV (PCR) NOT DETECTED Nasal B.pertussis DNA PCR NOT DETECTED Nasal C.pneumoniae (PCR) NOT DETECTED Peng Human Metapneumo PCR NOT DETECTED Nasal M.pneumoniae (PCR) NOT DETECTED Nasal SARS-CoV-2 (PCR) NOT DETECTED - Rads (name of study) CT A/P with PO contrast Radiology: Prelim report reviewed, See rad report chest xray Radiology: Prelim report reviewed, See rad report PD MEDICAL DECISION MAKING - ED course Complexity details: reviewed results, re-evaluated patient, considered differential, d/w patient, d/w family ED course: CT A/P shows "complete bowel obstruction with transition point in the right mid abdomen. Likely due to adhesion" (per radiology reading). NGT is placed and over 1400 cc output which correlated with significant improvement in patient's symptoms (pain, nausea). D/W Dr. Portillo, will admit to hospitalist service. I also discussed the case with Dr. Hurt who will evaluate patient later today in the inpatient setting. Departure - Departure Disposition: 66 [facility] DC/Xfer Clinical Impression: Small bowel obstruction Condition: Stable Discharge Date/Time: 07/10/21 02:35
[2021-07-09] MEDS ORDERED: SODIUM CHLORIDE 0.9% 500 ML IV STA ×2 (22:13→22:46)
[2021-07-09] MEDS ORDERED: ONDANSETRON 4 MG/2 ML VIAL IVP STA (22:13)
[2021-07-09] MEDS ORDERED: IPRATROPIUM/ALBUTEROL 3 ML NEB INH STA (22:14)
[2021-07-09 22:28] LABS: BASOPHILS % (AUTO) 0.3 %; HCT - HEMATOCRIT 47.1 % (37.0-47.0); LYMPHOCYTES # (AUTO) 0.5 10^3/uL (1.5-3.5); LYMPHOCYTES % (AUTO) 4.6 %; MEAN CORPUSCULAR HEMOGLOBIN 32.5 pg (27.0-31.0); MEAN CORPUSCULAR VOLUME 95.5 fL (81.0-99.0); MEAN PLATELET VOLUME 9.9 fL (7.9-10.8); MONOCYTES # (AUTO) 1.2 10^3/uL (0.0-1.0); MONOCYTES % (AUTO) 11.6 %; NEUTROPHILS # (AUTO) 8.4 10^3/uL (1.5-6.6); NEUTROPHILS % (AUTO) 83.2 %; PLT - PLATELET COUNT 305 10^3/uL (130-450); RED BLOOD COUNT 4.93 10^6/uL (4.20-5.40); RED CELL DISTRIBUTION WIDTH 14.2 % (12.0-15.0); WHITE BLOOD COUNT 10.1 x10^3/uL (4.8-10.8)
[2021-07-09] MEDS ORDERED: IOVERSOL 320 50 ML VIAL ONE (22:37)
[2021-07-09 22:42] LABS: ALBUMIN 4.5 g/dL (3.2-5.5); ALBUMIN/GLOBULIN RATIO 1.4 (1.0-2.2); BILIRUBIN,TOTAL 1.6 mg/dL (0.2-1.0); CALCIUM 9.8 mg/dL (8.5-10.3); CREATININE 1.1 mg/dL (0.4-1.0); TOTAL PROTEIN 7.8 g/dL (6.7-8.2)
--- NOTE | 2021-07-09 23:24 | XRAY Report ---
PROCEDURE: Chest 2 View X-Ray INDICATIONS: cough, dyspnea TECHNIQUE: 2 view(s) of the chest. COMPARISON: None. FINDINGS: Surgical changes and devices: None. Lungs and pleura: No pleural effusions or pneumothorax. Lungs demonstrate slightly coarse interstit ial markings. No dense consolidations or visible pleural effusions.. Mediastinum: Mediastinal contours are normal. Heart size is mildly enlarged, chronic. Bones and chest wall: No suspicious bony abnormalities. Soft tissues appear unremarkable. IMPRESSION: 1. Mild chronic cardiomegaly and diffuse interstitial thickening may indicate acute or chronic CHF. C orrelate with BNP. 2. No acute pulmonary parenchymal consolidations. Reviewed by: Daria Almanzar MD on 07/09/2021 11:26 PM PDT Approved by: Daria Almanzar MD on 07/09/2021 11:26 PM PDT Station ID: [id number]
[2021-07-09 23:40] LABS: B. PARAPERTUSSIS- RESP PCR PAN NOT DETECTED; B. PERTUSSIS- RESP PCR PANEL NOT DETECTED; C. PNEUMONIAE- RESP PCR PANEL NOT DETECTED; CORONAVIRUS 229E-RESP PCR NOT DETECTED; CORONAVIRUS HKU1-RESP PCR NOT DETECTED; CORONAVIRUS NL63-RESP PCR NOT DETECTED; CORONAVIRUS OC43-RESP PCR NOT DETECTED; HUMAN METAPNEUMOVIRUS NOT DETECTED; INFLUENZA A- RESP PCR PANEL NOT DETECTED; INFLUENZA B - RESP PCR PANEL NOT DETECTED; M. PNEUMONIAE- RESP PCR PANEL NOT DETECTED; PARAINFLUENZA VIRUS 1 NOT DETECTED; PARAINFLUENZA VIRUS 2 NOT DETECTED; PARAINFLUENZA VIRUS 3 NOT DETECTED; PARAINFLUENZA VIRUS 4 NOT DETECTED; RHINOVIRUS/ENTEROVIRUS NOT DETECTED; RSV- RESP PCR PANEL NOT DETECTED; SARS-CoV-2 -RESP PCR PANEL NOT DETECTED
[2021-07-10] MEDS ORDERED: IOVERSOL 320 50 ML VIAL PO ONE (00:09)
--- NOTE | 2021-07-10 01:02 | CT Report ---
PROCEDURE: Abdomen/Pelvis WO INDICATIONS: abd. pain, n/v TECHNIQUE: Oral contrast was administered. Noncontrast 5 mm thick sections acquired from the diaphragms to the s ymphysis. 5 mm coronal and sagittal reformats were then performed. For radiation dose reduction, e following was used: automated exposure control, adjustment of mA and/or kV according to patient si ze. COMPARISON: None. FINDINGS: Image quality: Excellent. ABDOMEN: Lung bases: Patchy nodular opacities are present at both lung bases. No pleural effusion. The heart i s diffusely enlarged. Small pericardial effusion. The distal esophagus is filled with oral contrast t he aorta is tortuous but normal caliber.. Heart size is normal. Peritoneum and bowel: The stomach is distended, filled with oral contrast. Proximal and mid small bow el loops are distended and contain air-fluid levels. There is a transition point in the right mid abd omen following which small bowel loops are completely decompressed. There is diverticulosis and solid stool present and otherwise normal caliber colon. There is extensive diverticular disease of the sig moid. No free intraperitoneal fluid or air. Liver, adrenal glands, spleen are normal. There is fatty replacement of the pancreas. Gallbladder con tains several tiny stones and is otherwise decompressed. The kidneys are mildly atrophic and there is a cyst arising from the upper pole left kidney. Nodes and vessels: The inferior vena cava is completely decompressed suggesting dehydration. Abdomina l aorta is normal caliber with mild atherosclerotic calcification. No retroperitoneal or mesenteric a denopathy or other mass. Miscellaneous: No ventral hernias. PELVIS: Genitourinary: Bladder wall thickness is normal. The uterus is absent. Miscellaneous: Small right inguinal hernia. No pelvic adenopathy. Bones: Mild central superior endplate compression fracture of L3. There is degenerative change at L4- 5 and L5-S1. IMPRESSION: 1. Findings suggest complete bowel obstruction with transition point in the right mid abdomen. Likely due to an adhesion. NG tube decompression is recommended if not very performed. 2. IVC decompression indicate severe dehydration. 3. Bilateral nodular densities and opacities at both lung bases. Consider routine chest CT" basis for further evaluation once acute illness has resolved. 4. Cholelithiasis. 5. Extensive sigmoid diverticulosis. Reviewed by: Daria Almanzar MD on 07/10/2021 1:04 AM PDT Approved by: aDria Almanzar MD on 07/10/2021 1:04 AM PDT Station ID: [id number]
[2021-07-10] MEDS ORDERED: PROCHLORPERAZINE 10 MG/2 ML VIAL IVP PRN (02:13)
[2021-07-10] MEDS ORDERED: ONDANSETRON 4 MG/2 ML VIAL IVP PRN (02:13)
--- NOTE | 2021-07-10 02:18 | HISTORY & PHYSICAL EXAMINATION ---
Chief Complaint - Chief Complaint Chief Complaint: abd pain, n/v for 4 days History of Present Illness - Admitted From Admitted From:: home - History Obtained From Records Reviewed: [facility] History obtained from: son, patient and Dr. Bansal Exam Limitations: pt memory - History of Present Illness HPI Comment/Other: This is a siddharth elderly female whose medical problems consist of chronic atrial fibrillation, obstructive sleep apnea and asthma who started having intermittent abdominal cramping and reduced bowel movements over a week ago. No blood in the stool. Appetite was much less and she was not eating as much. Her previous abdominal history consist of a and a hysterectomy. The cramping increased in severity and frequency and was much more constant by Thursday. Thursday was July 08. She became increasingly miserable and went to the emergency room on July 08. She was seen by the ER provider where her CMP was normal. White cell count was normal. And imaging study had scattered nodular opacities in the visualized portion of the base of the lungs with the largest being 2 cm. These are new when compared to 2020. The heart was enlarged. Fatty liver. Gallbladder had dependent stones without wall thickening. Biliary system without dilation. The bowel had no free fluid or air. Diverticulosis present. There was some mildly dilated fluid-filled loops of small bowel. The patient was given some pain medicine, and she felt better and she went home. She got some sleep, but as the day went on her abdominal pain returned July 09. This time her family took her to [place] emergency room. She waited about 5 or 6 hours and because they were so busy, they were told that it would be quite some time before they could be seen. So they left and they came back home. Today, nausea and vomiting was so severe in addition to the abdominal pain and they brought her back to the emergency room. The patient continues to be afebrile, and white cell count is not elevated. Her belly was distended, and she was in quite severe distress and an NG tube was placed and over a liter was removed almost instantly. She states that she could really feel the difference within a matter of minutes and was much more comfortable. The son said that they "thought they were going to lose her" over the last couple of days. She was increasingly disoriented, not herself, lethargic. Once the NG was placed and she is received a liter of fluid she has become much more chatty, much more "herself" according to the son. Repeat CT of the abdomen continues to show the bibasilar nodules in the lungs. The stomach is now distended and filled with oral contrast. Proximal and mid small bowel loops are distended and contain air-fluid levels. There is a transition point in the right mid abdomen followin g which small bowel loops are completely decompressed. There is diverticulosis, and solid stool present and otherwise normal caliber colon. The inferior cava is completely decompressed suggesting dehydration. Dr. Hurt, general surgery, was called by Dr. Bansal in the ER. Dr. Hurt would like to consult on the patient and he would prefer that the patient be observed by our hospitalist service. History - Past Medical History Cardiovascular: reports: Hypertension, High cholesterol, Atrial fibrillation Respiratory: reports: Asthma, Shortness of breath, Sleep apnea, CPAP use Neuro: reports: Other (chronic dizziness and falls getting worse this year) Endocrine/Autoimmune: reports: None GI: reports: None CUSHION ASSEMBLER: reports: Other (, 1 adopted so 5 kids) : reports: None HEENT: reports: Macular degeneration, Other (cataracts) Psych: reports: None Musculoskeletal: reports: Osteoarthritis Derm: reports: None MRSA Hx?: No - Past Surgical History Ortho: reports: Knee replacement /CUSHION ASSEMBLER: reports: section, Hysterectomy HEENT: reports: Cataracts, Tonsil/Adenoidectomy Derm: reports: Other (Hand cellulitis with admission to hospital July 2020) - Family & Social History Family History: Mother: , Father: Family History Comment/Other: Patient report her father at age 94 from aging and was an alcoholic. Mother at age 82 from heart attack. 1 brother of some type of cancer. 1 sister alive and healthy. 4 children. 1 with HTN, 1 with HPL, 1 of ovarian ca age 34 Living arrangement: At home Living Situation: With spouse/s.o., With family Social History Notes: Has been moved to [facility] decades ago. Built her own home and have raised all of her children on the [place]. She never smoked. She rarely drank. She has no history of recreational substance abuse. They still live on their own property. They have sold the main house to her younger son and the younger son with his family maintains the property. They live in a cottage down below the house. [place] - Substance History Use: Uses substance without health or social issues: NONE Abuse: Recurrent use of substance despite neg consequences: NONE Dependence: Experiences withdrawal or developed tolerances: NONE - POLST Patient has POLST: No POLST Status: Full Code Meds/Allgy - Home Medications Home Medications: Ambulatory Orders Medication Instructions Recorded Confirmed Apixaban [Eliquis] 5 mg PO BID 06/22/17 07/09/21 Atorvastatin [Lipitor] 20 mg PO DAILY 06/22/17 07/09/21 Multivitamin [Multiple Vitamins] 1 each PO DAILY 06/22/17 07/09/21 Ubidecarenone [Co Q-10] 30 mg PO DAILY 06/22/17 07/09/21 Cholecalciferol (Vitamin D3) 25 mcg PO DAILY 08/10/20 07/09/21 [Vitamin D3] Fluticasone Propion/Salmeterol 1 inh PO BID 08/10/20 07/09/21 [Wixela 100-50 Inhub] Metoprolol Tartrate [Lopressor] 50 mg PO BID 08/10/20 07/09/21 - Allergies Allergies/Adverse Reactions: Allergies Allergy/AdvReac Type Severity Reaction Status Date / Time meloxicam Allergy Rash Verified 07/09/21 21:58 Review of Systems - Constitutional Constitutional: reports: Fatigue, Poor appetite. denies: Fever, Chills, Weight gain, Weight loss - Eyes Eyes: reports: Other (Cataract recently done and she cannot believe how much her vision and dizziness have improved). denies: Pain, Irritation - Ears, Nose & Throat Ears, Nose & Throat: reports: Hearing loss, Hoarseness (Losing her voice in the last 3 days). denies: Hearing aids, Tinnitus, Vertigo, Nasal pain, Nasal discharge, Sore throat - Cardiovascular Cariovascular: reports: Irregular heart rate, Palpitations, Exertional dyspnea, Decr. exercise tolerance. denies: Chest pain, Edema, Syncope - Respiratory Respiratory: reports: Cough (Started in the last 3 days, it feels like she cannot bring stuff up even though it is there), Wheezing (Chronic. Uses inhaler 2-3 times a week.), Snoring (Uses a CPAP machine), SOB with exertion, Apnea (Uses a CPAP machine). denies: Sputum production, Hemoptysis, Orthopnea, Pleuritic pain - Gastrointestinal Gastrointestinal: reports: Abdominal pain, Abdominal distention, Other (No bowel movement or flatus for 3-1/2 days. Constant belching and burping were getting worse until she started frankly vomiting today. No hematemesis.) - Genitourinary Genitourinary: denies: Dysuria, Frequency, Urgency, Hematuria, Incontinence - Musculoskeletal Musculoskeletal: reports: Back pain (Starting today with the nausea and vomiting). denies: Muscle pain, Gout, Joint pain (Ever since she has had her knee done it has been "excellent") - Integumentary Integumentary: denies: Rash, Pruritis, Lesions, Dryness - Neurological Neurological: reports: General weakness (Over the last 2 to 3 days. Its been frightening how much she is deteriorated according to the family), Dizziness, Memory problems (Have started and are gradually and steadily getting worse over the last year), Abnormal gait (They cannot tell of chronic dizziness or gradual general weakness has resulted in increasing falls over the last year). denies: Focal weakness, Headache - Psychiatric Psychiatric: denies: Depression, Anxiety, Suicidal, Delusions, Hallucinations - Endocrine Endocrine: denies: Polyuria, Polydypsia, Polyphagia, Intolerance to cold - Hematologic/Lymphatic Hematologic/Lymphatic: denies: Anemia, Bruising, Petechiae Prior Level of Functionality: She uses a cane or a walker. She still is able to dress herself, feed herself. Has been is getting demented, worse than her. She no longer drives. She still cleans house, does laundry, changes the sheets on the bed. Gets a lot of help from her grandchildren and son who live upstairs Exam - Vital Signs Reviewed Vital Signs: Yes Vital Signs: Vital Signs x48h Temp Pulse Resp BP Pulse Ox 07/10/21 01:08 96 20 135/101 H 96 07/10/21 00:24 36.8 C 94 21 112/82 H 95 07/09/21 23:17 89 18 95 07/09/21 22:44 102 H 23 93 07/09/21 22:41 96 24 91 L 07/09/21 22:29 122 H 20 07/09/21 22:24 101 H 22 129/86 H 90 L 07/09/21 21:56 35.8 C L 93 18 125/84 H 93 - Physical Exam General Appearance: positive: No acute distress, Alert, Other (, Elderly white female, occasionally moving her NG tube around but states that her stomach is much less distended with this in place) Eyes Bilateral: positive: EOMI, Conjunctivae nml, No scleral icterus. negative: PERRL (Pupils irregular with recent cataract surgery but reactive to light and a ccommodation.), No lid inflammation ENT: positive: Pharynx nml, Dry mucous membranes. negative: Pharyngeal erythema Neck: positive: No JVD. negative: Lymphadenopathy (R), Lymphadenopathy (L), Stiff neck Respiratory: positive: No respiratory distress, Rhonchi, Other (2-3 times she coughed during the exam and was quite rhonchorous, phlegmy sounding but not bringing anything up. She says this started about 2 days ago and getting worse) Cardiovascular: positive: Irregularly irregular, Systolic murmur. negative: Gallop/S4, Friction rub Peripheral Pulses: positive: 0 Abdomen: positive: Other (Still slightly distended. She states this is much b ericka than it was since the NG tube has been placed. No bowel sounds. Mild generalized tenderness but no guarding or rebound. She says the pain was a 10 out of a 10 when she came to the ER. With the NG in place she is now a 4 out of a 10 and sh) Skin: positive: No rash, Pallor, Other (Cold hands and feet) Extremities: positive: Non-tender, Full ROM, No pedal edema Neurologic/Psychiatric: positive: CN's nml (2-12), Motor nml, Disoriented to time Conclusion/Plan - Problem List (1) Small bowel obstruction Conclusion/Plan: Differential diagnosis for bowel obstruction includes neoplasm, adhesions, volvulus. In this siddharth lady it appears to be an adhesion with a transition point identifiable on CT. Previous abdominal surgery is a and hysterectomy she tells me. At this time she does not have a fever or an elevated white cell count. General surgery has already been consulted. Plan: Observation status NG tube to low intermittent suction Pain meds with Dilaudid IV every 2 as needed Multiple nausea meds Reassess tomorrow morning with general surgery (2) Dehydration Conclusion/Plan: As seen on oral mucosa and a collapsed IVC. Patient has received 1 L in the emergency room and all started on 100 cc an hour of lactated Ringer's (3) Bronchitis Conclusion/Plan: Developed in the last couple of days. Increasing cough and cough congestion but is not able to bring up phlegm. She already has a history of asthma and she started to wheeze a little bit more. On top of that CT of the abdomen shows abnormality at the bases of her lungs. I do not know if this is chronic or new. Plan: Inhaled bronchodilators Inhaled steroids Consider antibiotics if she develops a fever or white cell count (4) Abnormal CT scan, lung Conclusion/Plan: This is seen on CT of the abdomen with lower cuts of the lower lungs. A new finding. When she is hydrated, more comfortable, will consider doing a CT of the chest in the next couple of days. (5) Cognitive deficits Conclusion/Plan: Gradually worsening over the last year, with increasing falls. Very subtle signs of senescence and failing. Son says that they have a lot of things already in place but with my questions they probably need to bring in an advanced directive. A DURABLE POWER OF TYPESETTER APPRENTICE needs to be established. And may be symptoms discussions about quality of life and what that means to her will be discussed within the family and shared with us down the road. (6) Chronic atrial fibrillation Conclusion/Plan: She is usually on metoprolol for rate control, and Eliquis for anticoagulation. At this time we will transition her over to Lovenox and hold the Eliquis. Give metoprolol IV push to control rate as needed. (7) AMRITA (obstructive sleep apnea) Conclusion/Plan: I have asked her and her son to see if he could bring in her sleep mask from home. She was hypoxic tonight. She says she does not take oxygen at home. With the new cough she will be watched carefully to make sure not developing pneumonia (8) Hypoxia Conclusion/Plan: That is new for her. She states that while she has asthma and needs an inhaler to 3 times a week, she is never needed oxygen before. She has had a noticeable change in her respiratory status over the last 2 days. Increasing cough, increa sing wheeze, increasing phlegm production. Lung exam does have rhonchi. She tries to cough and but is unable to bring up the phlegm. Have atelectasis with early pneumonia due to her immobility. She has been basically bedbound for the last 2 days due to the nausea and vomiting. Plan: Frequent assessments of lung exam, if elevated white cell count occurs or change in color phlegm or fever I will start her on empiric antibiotics - Lab Results Lab results reviewed: Yes Fish Bones: 07/09/21 22:22 07/09/21 22:22 - Diagnostic Imaging Results Diagnostic Imaging Results: positive: Final report reviewed Diagnostic Imaging Results Comments: Chest x-ray on July 09 with ольга's visit shows mild chronic cardiomegaly and diffuse interstitial thickening. No acute pulmonary parenchymal consolidations. Core Measures - Anticipated LOS I expect patient to be DC'd or transferred within 96 hours.: Yes - DVT/VTE - Prophylaxis VTE/DVT Device ordered at admit?: Yes
[2021-07-10] MEDS ORDERED: METOPROLOL 5 MG/5 ML VIAL IVP PRN (02:44)
[2021-07-10] MEDS ORDERED: LACTATED RINGERS 1,000 ML IV SCH (03:00)
[2021-07-10 03:10] LABS: BILIRUBIN,URINE NEGATIVE (NEGATIVE); GLUCOSE, URINE (UA) NEGATIVE (NEGATIVE); KETONES,URINE (UA) NEGATIVE (NEGATIVE); LEUKOCYTE ESTERASE, URINE NEGATIVE (NEGATIVE); NITRITE,URINE NEGATIVE (NEGATIVE); OCCULT BLOOD,URINE NEGATIVE (NEGATIVE); PH,URINE 5.5 PH (5.0-7.5); PROTEIN,URINE TRACE mg/dL (NEGATIVE); UROBILINOGEN,URINE 0.2 (NORMAL) E.U./dL (NORMAL)
[2021-07-10 03:11] LABS: CLARITY,URINE CLEAR (CLEAR)
[2021-07-10 05:36] LABS: BASOPHILS % (AUTO) 0.2 %; EOSINOPHILS % (AUTO) 0.2 %; HCT - HEMATOCRIT 44.2 % (37.0-47.0); HGB - HEMOGLOBIN 14.8 g/dL (12.0-16.0); LYMPHOCYTES # (AUTO) 0.5 10^3/uL (1.5-3.5); LYMPHOCYTES % (AUTO) 8.5 %; MEAN CORPUSCULAR HEMOGLOBIN 32.2 pg (27.0-31.0); MEAN CORPUSCULAR HGB CONC 33.5 g/dL (32.0-36.0); MEAN CORPUSCULAR VOLUME 96.3 fL (81.0-99.0); MEAN PLATELET VOLUME 10.2 fL (7.9-10.8); MONOCYTES # (AUTO) 1.1 10^3/uL (0.0-1.0); MONOCYTES % (AUTO) 18.6 %; NEUTROPHILS # (AUTO) 4.4 10^3/uL (1.5-6.6); NEUTROPHILS % (AUTO) 72.3 %; PLT - PLATELET COUNT 277 10^3/uL (130-450); RED BLOOD COUNT 4.59 10^6/uL (4.20-5.40); RED CELL DISTRIBUTION WIDTH 14.5 % (12.0-15.0); WHITE BLOOD COUNT 6.1 x10^3/uL (4.8-10.8)
[2021-07-10 05:44] LABS: ALBUMIN 3.9 g/dL (3.2-5.5); ALBUMIN/GLOBULIN RATIO 1.3 (1.0-2.2); BILIRUBIN,TOTAL 1.3 mg/dL (0.2-1.0); CALCIUM 9.1 mg/dL (8.5-10.3); POTASSIUM 3.8 mmol/L (3.5-5.0); TOTAL PROTEIN 6.8 g/dL (6.7-8.2)
[2021-07-10] MEDS: SODIUM CHLORIDE FLUSH 0.9% 10 ML SYRINGE IVP SCH ×2 (08:28→16:10)
[2021-07-10] MEDS ORDERED: PHENOL THROAT SPRAY 177 ML MM PRN (08:30)
[2021-07-10] MEDS: ENOXAPARIN 40 MG/0.4 ML SYRINGE SUBQ SCH (09:14)
--- NOTE | 2021-07-10 10:18 | XRAY Report ---
PROCEDURE: Abdomen 1 View X-Ray INDICATIONS: sbo TECHNIQUE: One view of the abdomen acquired. COMPARISON: Chest radiograph dated 07/09/[address] of abdomen and pelvis dated 07/09/2021. FINDINGS: Surgical changes and devices: NG tube tip is below the left hemidiaphragm and is in the expected loca tion of stomach lumen.. Bowel: Bowel gas pattern is nonspecific for obstruction. No gross peritoneal free air. Soft tissues: No suspicious abdominal calcifications. Visualized solid organ contours appear normal in size. Bones: No suspicious bony lesions. IMPRESSION: NG tube tip is in the stomach lumen. Nonspecific bowel gas pattern. No gross peritoneal free air. Reviewed by: Darius Haque MD on 07/10/2021 10:17 AM PDT Approved by: Darius Haque MD on 07/10/2021 10:17 AM PDT Station ID: [id number]
[2021-07-10] MEDS ORDERED: IPRATROPIUM/ALBUTEROL 3 ML NEB INH SCH (11:00)
--- NOTE | 2021-07-10 11:05 | PROVIDER PROGRESS NOTE ---
Assessment/Plan - Problem List (1) Small bowel obstruction Assessment/Plan: Pt does not have a fever and elevation of WBC at this time. Minimal bowel sounds auscultated, abdomen distended and tender to palpation. Pt does not endorse passing gas and have been unable to have a BM. Pt does not endorse nausea at this time. Pt remains connected to NG on intermittent suction. Plan: 1. NG tube to low intermittent suction for decompression 2. Pain meds with Dilaudid IV every 2 as needed 3. Multiple nausea meds as needed 4. Pending plan with general surgery (2) Dehydration Assessment/Plan: Pt remains NPO at this time. Last BUN drawn on 07/09 was 46, most recent bun drawn on 07/10 is 47. Last creatinine drawn on 07/09 in 1.1, most recent creatinine drawn is 1.0. Lactic acid drawn on 07/09 was 3.1, most current lactic acid is 1.5. Plan: 1. Continue infusing D5.45NS w/ 20 meqs @100mls/hr 2. Continue monitoring BMP 3. Monitor I&Os (3) Hypoxia Assessment/Plan: Pt has a hx of asthma. Pt does not report oxygen use at home. While she is here, she is on 3L of oxygen via NC with an oxygen saturation of 94% with increasing cough and no sputum production. Plan: 1. Continue monitoring for concerns of pneumonia 2. See if nebulizers with RT improves secretions (4) Bronchitis Assessment/Plan: Pt reported having increase in cough, pain in abdomen rises from 0 to 6 on numeric pain scale. Pt does not report any sputum with cough. Plan: 1. Steroid and bronchodilators with RT 2. Consider antibiotics if she develops fever or increase in WBC (5) Abnormal CT scan, lung Assessment/Plan: This is seen on CT of the abdomen with lower cuts of the lower lungs. Plan: 1. CT of chest once patient is more comfortable (6) Cognitive deficits Assessment/Plan: Per son has been gradually increasing over the past year. Presence of increased falls. Pt remains appropriate in responses to questions and participatory in her care. Plan: 1. Establish DPOA 2. Establish goals of care (7) Chronic atrial fibrillation Assessment/Plan: Pt is typically on metoprolol for rate control, and Eliquis for anticoagulation. While patient is inpatient, metoprolol is ordered PRN, eliquis held, pt to continue on lovenox. (8) AMRITA (obstructive sleep apnea) Assessment/Plan: Pt sleeps with a CPAP machine at home. 1. Have family bring CPAP machine from home for use here. - Current Meds Current Meds: Current Medications Generic Name Dose Route Start Last Admin Trade Name F[place]ai PRN Reason Stop Dose Admin Enoxaparin Sodium 40 mg 07/10/21 09:00 07/10/21 09:14 Enoxaparin 40 Mg/0.4 Ml Syringe SUBQ 40 mg DAILY AUTUMN Administration Sodium Chloride 10 ml 07/10/21 09:00 07/10/21 08:28 Sodium Chloride Flush 0.9% 10 Ml Syringe IVP Not Given 0100,0900,1700 AUTUMN - Lab Result Fish Bone Diagrams: 07/10/21 05:23 07/10/21 05:23 - Additional Planning Time Spent: 31-60 minutes Subjective - Subjective Patient Reports: Feeling Better, Resting Comfortably, Abdominal Pain (with cough), Constipation, Cough, Pain (with cough) Nursing Reports: Constipation Objective Vital Signs: Vital Signs - 24 hr 07/09/21 07/09/21 07/09/21 21:56 22:24 22:29 Temperature 35.8 C L Heart Rate 93 101 H 122 H Heart Rate [ Brachial] Respiratory 18 22 20 Rate Blood Pressure 125/84 H 129/86 H Blood Pressure [Right Brachial artery] O2 Saturation 93 90 L 07/09/21 07/09/21 07/09/21 22:41 22:44 23:17 Temperature Heart Rate 96 102 H 89 Heart Rate [ Brachial] Respiratory 24 23 18 Rate Blood Pressure Blood Pressure [Right Brachial artery] O2 Saturation 91 L 93 95 07/10/21 07/10/21 07/10/21 00:24 01:08 02:50 Temperature 36.8 C 36.1 C L Heart Rate 94 96 Heart Rate [ 85 Brachial] Respiratory 21 20 22 Rate Blood Pressure 112/82 H 135/101 H Blood Pressure 134/82 H [Right Brachial artery] O2 Saturation 95 96 98 07/10/21 07/10/21 07/10/21 05:57 07:42 07:45 Temperature 36.4 C L 36.7 C Heart Rate 82 Heart Rate [ 82 81 Brachial] Respiratory 18 18 18 Rate Blood Pressure Blood Pressure 117/73 114/69 [Right Brachial artery] O2 Saturation 97 96 96 Oxygen O2 Source Nasal cannula Oxygen Flow Rate 3 I&O (Last 24 Hrs): Intake and Output Totals x24h 07/08/21 07/09/21 07/10/21 23:59 23:59 23:59 Intake Total 1000 30 Output Total 3600 Balance 1000 -3570 General: Oriented x3, No acute distress, Other (Pt is a pleasant elderly female who answers questions appropriately and participatory in her care. 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 Pain with palpation.) Genitourinary: Normal External, No Bleeding, No Discharge, No Tenderness, No Adnexal Mass Rectal: Non-Tender Extremities: No clubbing, No cyanosis, No edema, Normal pulses, No tenderness/swelling Skin: No breakdown - Results Results: Laboratory Results WBC 6.1 x10^3/uL (4.8-10.8) 07/10/21 05:23 RBC 4.59 10^6/uL (4.20-5.40) 07/10/21 05:23 Hgb 14.8 g/dL (12.0-16.0) 07/10/21 05:23 Hct 44.2 % (37.0-47.0) 07/10/21 05:23 MCV 96.3 fL (81.0-99.0) 07/10/21 05:23 MCH 32.2 pg (27.0-31.0) H 07/10/21 05:23 MCHC 33.5 g/dL (32.0-36.0) 07/10/21 05:23 RDW 14.5 % (12.0-15.0) 07/10/21 05:23 Plt Count 277 10^3/uL (130-450) 07/10/21 05:23 MPV 10.2 fL (7.9-10.8) 07/10/21 05:23 Neut # (Auto) 4.4 10^3/uL (1.5-6.6) 07/10/21 05:23 Lymph # (Auto) 0.5 10^3/uL (1.5-3.5) L 07/10/21 05:23 [place] # (Auto) 1.1 10^3/uL (0.0-1.0) H 07/10/21 05:23 Eos # (Auto) 0.0 10^3/uL (0.0-0.7) 07/10/21 05:23 Baso # (Auto) 0.0 10^3/uL (0.0-0.1) 07/10/21 05:23 Absolute Nucleated RBC 0.00 x10^3/uL 07/10/21 05:23 Nucleated RBC % 0.0 /100WBC 07/10/21 05:23 Sodium 136 mmol/L (135-145) 07/10/21 05:23 Potassium 3.8 mmol/L (3.5-5.0) 07/10/21 05:23 Chloride 95 mmol/L (101-111) L 07/10/21 05:23 Carbon Dioxide 29 mmol/L (21-32) 07/10/21 05:23 Anion Gap 12.0 (6-13) 07/10/21 05:23 BUN 47 mg/dL (6-20) H 07/10/21 05:23 Creatinine 1.0 mg/dL (0.4-1.0) 07/10/21 05:23 Estimated GFR (MDRD) 53 (>89) L 07/10/21 05:23 Glucose 124 mg/dL (70-100) H 07/10/21 05:23 Lactic Acid 1.5 mmol/L (0.5-2.2) 07/10/21 07:59 Calcium 9.1 mg/dL (8.5-10.3) 07/10/21 05:23 Total Bilirubin 1.3 mg/dL (0.2-1.0) H 07/10/21 05:23 AST 30 IU/L (10-42) 07/10/21 05:23 ALT 17 IU/L (10-60) 07/10/21 05:23 Alkaline Phosphatase 45 IU/L (42-121) 07/10/21 05:23 Total Protein 6.8 g/dL (6.7-8.2) 07/10/21 05:23 Albumin 3.9 g/dL (3.2-5.5) 07/10/21 05:23 Globulin 2.9 g/dL (2.1-4.2) 07/10/21 05:23 Albumin/Globulin Ratio 1.3 (1.0-2.2) 07/10/21 05:23 Lipase 24 U/L (22-51) 07/09/21 22:22 Urine Color YELLOW 07/10/21 02:40 Urine Clarity CLEAR (CLEAR) 07/10/21 02:40 Urine pH 5.5 PH (5.0-7.5) 07/10/21 02:40 Ur Specific [place] >=1.030 (1.002-1.030) H 07/10/21 02:40 Urine Protein TRACE mg/dL (NEGATIVE) 07/10/21 02:40 Urine Glucose (UA) NEGATIVE mg/dL (NEGATIVE) 07/10/21 02:40 Urine Ketones NEGATIVE mg/dL (NEGATIVE) 07/10/21 02:40 Urine Occult Blood NEGATIVE (NEGATIVE) 07/10/21 02:40 Urine Nitrite NEGATIVE (NEGATIVE) 07/10/21 02:40 Urine Bilirubin NEGATIVE (NEGATIVE) 07/10/21 02:40 Urine Urobilinogen 0.2 (NORMAL) E.U./dL (NORMAL) 07/10/21 02:40 Ur Leukocyte Esterase NEGATIVE (NEGATIVE) 07/10/21 02:40 Ur Microscopic Review NOT INDICATED 07/10/21 02:40 Urine Culture Comments NOT INDICATED 07/10/21 02:40 Nasal Adenovirus (PCR) NOT DETECTED 07/09/21 22:27 Nasal B. parapertussis DNA (PCR) NOT DETECTED 07/09/21 22:27 Nasal Coronavir 229E PCR NOT DETECTED 07/09/21 22:27 Nasal Coronavir HKU1 PCR NOT DETECTED 07/09/21 22:27 Nasal Coronavir NL63 PCR NOT DETECTED 07/09/21 22:27 Nasal Coronavir OC43 PCR NOT DETECTED 07/09/21 22:27 Nasal Enterovir/Rhinovir PCR NOT DETECTED 07/09/21 22:27 Nasal Influenza B PCR NOT DETECTED 07/09/21 22:27 Nasal Influenza A PCR NOT DETECTED 07/09/21 22:27 Nasal Parainfluen 1 PCR NOT DETECTED 07/09/21 22:27 Nasal Parainfluen 2 PCR NOT DETECTED 07/09/21 22:27 Nasal Parainfluen 3 PCR NOT DETECTED 07/09/21 22:27 Nasal Parainfluen 4 PCR NOT DETECTED 07/09/21 22:27 Nasal RSV (PCR) NOT DETECTED 07/09/21 22:27 Nasal B.pertussis DNA PCR NOT DETECTED 07/09/21 22:27 Nasal C.pneumoniae (PCR) NOT DETECTED 07/09/21 22:27 Peng Human Metapneumo PCR NOT DETECTED 07/09/21 22:27 Nasal M.pneumoniae (PCR) NOT DETECTED 07/09/21 22:27 Nasal SARS-CoV-2 (PCR) NOT DETECTED 07/09/21 22:27 ABX Reporting Has patient been on IV antibiotics over the past 48 hours?: No Current Medications - Current Medications Current Medications: Active Medications Generic Name Dose Route Start Last Admin Trade Name Freq PRN Reason Stop Dose Admin Albuterol 2.5 mg 07/10/21 08:15 Albuterol Neb 2.5 Mg/3 Ml INH RTQ4H PRN Wheezing Budesonide 0.5 mg 07/10/21 19:00 Budesonide 0.5 Mg/2 Ml Neb INH RTBID AUTUMN Enoxaparin Sodium 40 mg 07/10/21 09:00 07/10/21 09:14 Enoxaparin 40 Mg/0.4 Ml Syringe SUBQ 40 mg DAILY AUTUMN Administration Formoterol Fumarate 20 mcg 07/10/21 19:00 Formoterol Fumarate Neb 20 Mcg/2 Ml INH RTBID AUTUMN Hydromorphone HCl 0.5 mg 07/10/21 02:13 Hydromorphone 0.5 Mg/0.5 Ml Syringe IVP Q2H PRN Pain 8 to 10 Potassium Chloride/Dextrose/Sod Cl 1,000 mls @ 100 mls/hr 07/10/21 10:00 07/10/21 11:10 D5.45ns W/20 Meq Kcl IV 100 mls/hr .Q10H AUTUMN Administration Metoprolol Tartrate 5 mg 07/10/21 02:44 Metoprolol 5 Mg/5 Ml Vial IVP Q6HR PRN Tachycardia Ondansetron HCl 4 mg 07/10/21 02:13 Ondansetron 4 Mg/2 Ml Vial IVP Q6HR PRN Nausea / Vomiting Phenol/Menthol 2 sprays 07/10/21 08:30 Phenol Throat [place] 177 Ml MM Q2HR PRN Throat Pain Prochlorperazine Edisylate 10 mg 07/10/21 02:13 Prochlorperazine 10 Mg/2 Ml Vial IVP Q6HR PRN Nausea / Vomiting Sodium Chloride 10 ml 07/10/21 02:13 Sodium Chloride Flush 0.9% 10 Ml Syringe IVP PRN PRN NEEDED PER PROVIDER ORDERS Sodium Chloride 10 ml 07/10/21 09:00 07/10/21 08:28 Sodium Chloride Flush 0.9% 10 Ml Syringe IVP Not Given 0100,0900,1700 AUTUMN Throat Lozenges 1 lozenge 07/10/21 08:30 Benzocaine/Menthol Lozenge MM Q2HR PRN Throat pain Apixaban [Eliquis] 5 mg PO BID 06/22/17 Atorvastatin [Lipitor] 20 mg PO DAILY 06/22/17 Multivitamin [Multiple Vitamins] 1 each PO DAILY 06/22/17 Ubidecarenone [Co Q-10] 30 mg PO DAILY 06/22/17 Cholecalciferol (Vitamin D3) [Vitamin D3] 25 mcg PO DAILY 08/10/20 Fluticasone Propion/Salmeterol [[place] 100-50 Inhub] 1 inh PO BID 08/10/20 Metoprolol Tartrate [Lopressor] 50 mg PO BID 08/10/20
[2021-07-10] MEDS: D5.45NS W/20 MEQ KCL 1,000 ML IV SCH ×2 (11:10→20:47)
--- NOTE | 2021-07-10 11:34 | CONSULTATION NOTE ---
Referring Provider Consult Date: 07/10/21 Chief Complaint - Chief Complaint Chief Complaint: abdominal discomfort and nausea History of Present Illness - Admitted From Admitted From:: ed - History Obtained From Records Reviewed: yes History obtained from: pt Exam Limitations: none - History of Present Illness HPI Comment/Other: nearly 4 days of abdominal discomfort, nausea, poor appetite, cough. no bm/ flatus for a couple days. ngt placed last pm. no abdominal pain this am. 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 Mother at age 82 from heart attack. 1 brother of some type of cancer. 1 sister alive and healthy. 4 children. 1 with HTN, 1 with HPL, 1 of ovarian ca age 34 Living arrangement: At home Living Situation: With spouse/s.o., With family Social History Notes: Has been moved to [facility] decades ago. Built her own home and have raised all of her children [place] the [place]. She never smoked. She rarely drank. She has no history of recreational substance abuse. They still live on their own property. They have sold the main house to her younger son and the younger son with his family maintains the property. They live in a cottage down below the house. [place]. - Substance History Use: Uses substance without health or social issues: NONE Abuse: Recurrent use of substance despite neg consequences: NONE Dependence: Experiences withdrawal or developed tolerances: NONE - POLST Patient has POLST: No POLST Status: Full Code Meds/Allgy - Home Medications Home Medications: Ambulatory Orders Medication Instructions Recorded Confirmed Apixaban [Eliquis] 5 mg PO BID 06/22/17 07/09/21 Atorvastatin [Lipitor] 20 mg PO DAILY 06/22/17 07/09/21 Multivitamin [Multiple Vitamins] 1 each PO DAILY 06/22/17 07/09/21 Ubidecarenone [Co Q-10] 30 mg PO DAILY 06/22/17 07/09/21 Cholecalciferol (Vitamin D3) 25 mcg PO DAILY 08/10/20 07/09/21 [Vitamin D3] Fluticasone Propion/Salmeterol 1 inh PO BID 08/10/20 07/09/21 [[place] 100-50 Inhub] Metoprolol Tartrate [Lopressor] 50 mg PO BID 08/10/20 07/09/21 - Allergies Allergies/Adverse Reactions: Allergies Allergy/AdvReac Type Severity Reaction Status Date / Time meloxicam Allergy Rash Verified 07/09/21 21:58 Review of Systems - Other Findings Other Findings: 10 pt ros as above otherwise unremarkable Exam - Vital Signs Vital Signs: Vital Signs x48h Temp Pulse Pulse Resp BP Pulse Ox 07/10/21 07:45 36.7 C 81 18 114/69 96 07/10/21 07:42 82 18 96 07/10/21 05:57 36.4 C L 82 18 117/73 97 - Physical Exam General Appearance: positive: No acute distress, Alert Eyes Bilateral: positive: PERRL, EOMI, No scleral icterus ENT: positive: No signs of dehydration Neck: positive: No JVD, Trachea midline Respiratory: positive: No respiratory distress Cardiovascular: positive: Irregularly irregular Abdomen: positive: Non-tender, No distention, Other (no hernia bulge papable while lying down no incarcerated right inguinal hernia or other hernias) Neurologic/Psychiatric: positive: Oriented x3 Conclusion/Plan - Problem List (1) Dehydration Conclusion/Plan: cough, abdominal discomfort, nausea/ vomiting x 4 days. feels improved with ivf and ngt. no incarcerated hernias. benign abdomen. agree with care and plan. this appears to be more of an ileus than a bowel obstruction. will follow. - Lab Results Lab results reviewed: Yes Fish Bones: 07/10/21 05:23 07/10/21 05:23 - Diagnostic Imaging Results Diagnostic Imaging Results: positive: Read independently (appearance of right inguinal hernia. not apparent on exam this am with her lying down. ileus vs s ольга. appears to have more of an ileus picture)
[2021-07-10] MEDS: BENZOCAINE/MENTHOL LOZENGE MM PRN (14:06)
--- NOTE | 2021-07-10 15:10 | PHARMACY PROGRESS NOTE ---
- Best Possible Medication History Admit Date and Time: 07/10/21 1000 Processed by: Pharmacy Medication History completed: Yes Patient Interview: Completed Secondary Source(s): Insurance records As the person ultimately responsible for medication therapy, providers are able to order a medication from an existing home medication list in [facility] via the "Reconcile Routine" prior to Confirmation of that medication by product support sales representative. Such practice is discouraged except when the physician, in their clinical judgment, deems that a medical need exists for a medication without regard to previous use.
[2021-07-10] MEDS: HYDROmorphone 0.5 MG/0.5 ML SYRINGE IVP PRN (16:04)
[2021-07-10] MEDS: FORMOTEROL FUMARATE NEB 20 MCG/2 ML INH SCH (19:30)
[2021-07-10] MEDS: ALBUTEROL NEB 2.5 MG/3 ML INH PRN (19:30)
[2021-07-10] MEDS: BUDESONIDE 0.5 MG/2 ML NEB INH SCH (19:30)
[2021-07-11] MEDS: SODIUM CHLORIDE FLUSH 0.9% 10 ML SYRINGE IVP SCH ×3 (00:06→16:50)
[2021-07-11 05:11] LABS: EOSINOPHILS # (AUTO) 0.3 10^3/uL (0.0-0.7); EOSINOPHILS % (AUTO) 6.5 %; HCT - HEMATOCRIT 39.8 % (37.0-47.0); HGB - HEMOGLOBIN 12.8 g/dL (12.0-16.0); LYMPHOCYTES # (AUTO) 0.6 10^3/uL (1.5-3.5); MEAN CORPUSCULAR HEMOGLOBIN 31.8 pg (27.0-31.0); MEAN CORPUSCULAR HGB CONC 32.2 g/dL (32.0-36.0); MEAN CORPUSCULAR VOLUME 98.8 fL (81.0-99.0); MONOCYTES # (AUTO) 0.9 10^3/uL (0.0-1.0); MONOCYTES % (AUTO) 21.3 %; NEUTROPHILS # (AUTO) 2.3 10^3/uL (1.5-6.6); PLT - PLATELET COUNT 230 10^3/uL (130-450); RED BLOOD COUNT 4.03 10^6/uL (4.20-5.40); RED CELL DISTRIBUTION WIDTH 14.6 % (12.0-15.0); WHITE BLOOD COUNT 4.1 x10^3/uL (4.8-10.8)
[2021-07-11 05:30] LABS: ALBUMIN 3.1 g/dL (3.2-5.5); ALBUMIN/GLOBULIN RATIO 1.2 (1.0-2.2); CALCIUM 8.2 mg/dL (8.5-10.3); CREATININE 0.6 mg/dL (0.4-1.0); TOTAL PROTEIN 5.6 g/dL (6.7-8.2)
[2021-07-11] MEDS: D5.45NS W/20 MEQ KCL 1,000 ML IV SCH ×2 (06:27→16:12)
[2021-07-11] MEDS: BUDESONIDE 0.5 MG/2 ML NEB INH SCH ×2 (07:42→19:35)
[2021-07-11] MEDS: FORMOTEROL FUMARATE NEB 20 MCG/2 ML INH SCH ×2 (07:43→19:35)
[2021-07-11] MEDS: ENOXAPARIN 40 MG/0.4 ML SYRINGE SUBQ SCH (08:11)
--- NOTE | 2021-07-11 09:45 | XRAY Report ---
PROCEDURE: Abdomen 1 View X-Ray INDICATIONS: sbo TECHNIQUE: One view of the abdomen acquired. COMPARISON: 07/10/2021 FINDINGS: Surgical changes and devices: NG tube tip is in the stomach lumen.. Bowel: Mild to moderate air distended small bowel loops are noted predominantly involving left side o f abdomen and measures up to 5.2 cm in diameter slightly worsened compared to previous day. No gross peritoneal free air. Soft tissues: No suspicious abdominal calcifications. Visualized solid organ contours appear normal in size. Bones: No suspicious bony lesions. IMPRESSION: Finding is suggestive of distal small bowel obstruction with interval slight worsening of bowel loop distention compared to previous day. No gross free air. Reviewed by: Darius Haque MD on 07/11/2021 9:43 AM PDT Approved by: Darius Haque MD on 07/11/2021 9:43 AM PDT Station ID: [id number]
--- NOTE | 2021-07-11 11:18 | PROVIDER PROGRESS NOTE ---
Subjective - Subjective Pt reports feeling: No change (still has a cough. no abdominal discomfort or activity ie flatus/ bm) Objective - Vital Signs/Intake & Output Vital Signs: Vital Signs x48h Temp Pulse Pulse Resp BP Pulse Ox 07/11/21 07:46 105 H 21 07/11/21 07:20 36.7 C 82 18 104/72 96 Intake & Output: Intake & Output 07/08/21 07/09/21 07/10/21 07/11/21 23:59 23:59 23:59 23:59 Intake Total 1000 3178.542 4364.667 Output Total 4375 625 Balance 1000 -2535.333 401.667 - Objective General Appearance: positive: No acute distress, Alert Eyes Bilateral: positive: PERRL, EOMI, No scleral icterus ENT: positive: No signs of dehydration Neck: positive: No JVD, Trachea midline Respiratory: positive: No respiratory distress, Other (productive cough) Abdomen: positive: Non-tender, No distention, Other (ngt output much reduced and thinner.) Neurologic/Psychiatric: positive: Oriented x3 - Lab Results Fish Bones: 07/11/21 04:13 07/11/21 04:13 Other Labs: Lab Results x24hrs 07/11/21 07/11/21 Range/Units 04:13 04:13 WBC 4.1 L (4.8-10.8) x10^3/uL RBC 4.03 L (4.20-5.40) 10^6/uL Hgb 12.8 (12.0-16.0) g/dL Hct 39.8 (37.0-47.0) % MCV 98.8 (81.0-99.0) fL MCH 31.8 H (27.0-31.0) pg MCHC 32.2 (32.0-36.0) g/dL RDW 14.6 (12.0-15.0) % Plt Count 230 (130-450) 10^3/uL MPV 10.0 (7.9-10.8) fL Neut # (Auto) 2.3 (1.5-6.6) 10^3/uL Lymph # (Auto) 0.6 L (1.5-3.5) 10^3/uL [place] # (Auto) 0.9 (0.0-1.0) 10^3/uL Eos # (Auto) 0.3 (0.0-0.7) 10^3/uL Baso # (Auto) 0.0 (0.0-0.1) 10^3/uL Absolute Nucleated RBC 0.00 x10^3/uL Nucleated RBC % 0.0 /100WBC Sodium 138 (135-145) mmol/L Potassium 4.0 (3.5-5.0) mmol/L Chloride 100 L (101-111) mmol/L Carbon Dioxide 30 (21-32) mmol/L Anion Gap 8.0 (6-13) BUN 31 H (6-20) mg/dL Creatinine 0.6 (0.4-1.0) mg/dL Estimated GFR (MDRD) 96 (>89) Glucose 107 H (70-100) mg/dL Calcium 8.2 L (8.5-10.3) mg/dL Total Bilirubin 1.0 (0.2-1.0) mg/dL AST 20 (10-42) IU/L ALT 15 (10-60) IU/L Alkaline Phosphatase 35 L (42-121) IU/L Total Protein 5.6 L (6.7-8.2) g/dL Albumin 3.1 L (3.2-5.5) g/dL Globulin 2.5 (2.1-4.2) g/dL Albumin/Globulin Ratio 1.2 (1.0-2.2) Assessment/Plan - Problem List (1) Dehydration Impression: benign abdomen. no palpable or clinical hernia. ngt output much improved. I believe she has an ileus and not a bowel obstruction. agree with current care. perhaps ngt out tomorrow.
[2021-07-11] MEDS: BENZOCAINE/MENTHOL LOZENGE MM PRN ×3 (12:12→19:56)
[2021-07-11] MEDS: SODIUM CHLORIDE FLUSH 0.9% 10 ML SYRINGE IVP PRN (12:12)
[2021-07-11] MEDS: PANTOPRAZOLE 40 MG VIAL IVP SCH (12:12)
[2021-07-11] MEDS ORDERED: PHENYLEPHRINE 1% NAS PRN (14:26)
--- NOTE | 2021-07-11 16:05 | PROVIDER PROGRESS NOTE ---
Subjective - Prog Note Date Prog Note Date: 07/11/21 Prog Note Time: 16:03 - Subjective Pt reports feeling: Improved Subjective: She uses phenylephrine at home and would like to use it here. Pharmacy states that we do not have it on formulary and he will see what we have to offer for her. Still no flatus or bowel movement. Abdominal distention much improved. General surgery note appreciated. They do not feel she has small bowel obstruction has only ileus. Current Medications - Current Medications Current Medications: Active Medications Albuterol (Albuterol Neb 2.5 Mg/3 Ml) 2.5 mg INH RTQ4H PRN PRN Reason: Wheezing Last Admin: 07/10/21 19:30 Dose: 2.5 mg Budesonide (Budesonide 0.5 Mg/2 Ml Neb) 0.5 mg INH RTBID [facility] Last Admin: 07/11/21 07:42 Dose: 0.5 mg Enoxaparin Sodium (Enoxaparin 40 Mg/0.4 Ml Syringe) 40 mg SUBQ DAILY [facility] Last Admin: 07/11/21 08:11 Dose: 40 mg Formoterol Fumarate (Formoterol Fumarate Neb 20 Mcg/2 Ml) 20 mcg INH RTBID [facility] Last Admin: 07/11/21 07:43 Dose: 20 mcg Hydromorphone HCl (Hydromorphone 0.5 Mg/0.5 Ml Syringe) 0.5 mg IVP Q2H PRN PRN Reason: Pain 8 to 10 Last Admin: 07/10/21 16:04 Dose: 0.5 mg Potassium Chloride/Dextrose/Sod Cl (D5.45ns W/20 Meq Kcl) 1,000 mls @ 100 mls/hr IV .Q10H [facility] Last Admin: 07/11/21 06:27 Dose: 100 mls/hr Metoprolol Tartrate (Metoprolol 5 Mg/5 Ml Vial) 5 mg IVP Q6HR PRN PRN Reason: Tachycardia Ondansetron HCl (Ondansetron 4 Mg/2 Ml Vial) 4 mg IVP Q6HR PRN PRN Reason: Nausea / Vomiting Pantoprazole Sodium (Pantoprazole 40 Mg Vial) 40 mg IVP QDAC [facility] Last Admin: 07/11/21 12:12 Dose: 40 mg Phenylephrine 1 % (Nasal [place]) 2 - 3 each LEAH Q4H PRN PRN Reason: NASAL CONGESTION Phenol/Menthol (Phenol Throat [place] 177 Ml) 2 sprays MM Q2HR PRN PRN Reason: Throat Pain Prochlorperazine Edisylate (Prochlorperazine 10 Mg/2 Ml Vial) 10 mg IVP Q6HR PRN PRN Reason: Nausea / Vomiting Sodium Chloride (Sodium Chloride Flush 0.9% 10 Ml Syringe) 10 ml IVP PRN PRN PRN Reason: NEEDED PER PROVIDER ORDERS Last Admin: 07/11/21 12:12 Dose: 10 ml Sodium Chloride (Sodium Chloride Flush 0.9% 10 Ml Syringe) 10 ml IVP 0100,0 900,1700 [place]UM[place] Last Admin: 07/11/21 08:11 Dose: Not Given Throat Lozenges (Benzocaine/Menthol Lozenge) 1 lozenge MM Q2HR PRN PRN Reason: Throat pain Last Admin: 07/11/21 14:28 Dose: 1 lozenge Apixaban [Eliquis] 5 mg PO BID 06/22/17 Atorvastatin [Lipitor] 20 mg PO DAILY 06/22/17 Multivitamin [Multiple Vitamins] 1 each PO DAILY 06/22/17 Ubidecarenone [Co Q-10] 30 mg PO DAILY 06/22/17 Cholecalciferol (Vitamin D3) [Vitamin D3] 50 mcg PO DAILY 08/10/20 Fluticasone Propion/Salmeterol [Wixela 100-50 Inhub] 2 inh PO BID 08/10/20 Calcium Carbonate [Calcium] 600 mg PO DAILY 07/10/21 Ketorolac 0.45% Ophth Drops [Acuvail] 1 drops EACHEYE BID 07/10/21 LORazepam [Ativan] 1 mg PO DAILY PRN 07/10/21 Meloxicam [Mobic] 1 tablet PO DAILY PRN 07/10/21 Metoprolol Succinate [Toprol Xl] 75 mg PO BID 07/11/21 Objective - Vital Signs/Intake & Output Reviewed Vital Signs: Yes Vital Signs: Vital Signs x48h Resp Pulse Ox 07/11/21 12:19 19 93 Intake & Output: Intake & Output 07/08/21 07/09/21 07/10/21 07/11/21 23:59 23:59 23:59 23:59 Intake Total 1000 4728.114 2779.667 Output Total 5055 925 Balance 1000 -2535.333 131.667 - Objective General Appearance: positive: No acute distress, Other (Sleeping, but awakens to my voice. Appropriate in speech. Does not remember meeting me yesterday.) Eyes Bilateral: positive: PERRL, EOMI ENT: positive: Other (NG in place) Neck: positive: No JVD. negative: Stiff neck Respiratory: positive: No respiratory distress, Rhonchi, Other (Occasional cough. She seems to be less congested and less clammy than on admission). negative: Wheezes, Rales Cardiovascular: positive: Regular rate & rhythm. negative: Gallop/S4, Friction rub Abdomen: positive: Other (Slightly distended, still generalized tenderness, hypoactive bowel sounds that are infrequent). negative: Guarding, Rebound Skin: positive: Warm, Dry, Pallor Extremities: positive: Full ROM, No pedal edema Neurologic/Psychiatric: positive: CN's nml (2-12), Motor nml, Disoriented to time - Lab Results Fish Bones: 07/11/21 04:13 07/11/21 04:13 Other Labs: Lab Results x24hrs 07/11/21 07/11/21 Range/Units 04:13 04:13 WBC 4.1 L (4.8-10.8) x10^3/uL RBC 4.03 L (4.20-5.40) 10^6/uL Hgb 12.8 (12.0-16.0) g/dL Hct 39.8 (37.0-47.0) % MCV 98.8 (81.0-99.0) fL MCH 31.8 H (27.0-31.0) pg MCHC 32.2 (32.0-36.0) g/dL RDW 14.6 (12.0-15.0) % Plt Count 230 (130-450) 10^3/uL MPV 10.0 (7.9-10.8) fL Neut # (Auto) 2.3 (1.5-6.6) 10^3/uL Lymph # (Auto) 0.6 L (1.5-3.5) 10^3/uL [place] # (Auto) 0.9 (0.0-1.0) 10^3/uL Eos # (Auto) 0.3 (0.0-0.7) 10^3/uL Baso # (Auto) 0.0 (0.0-0.1) 10^3/uL Absolute Nucleated RBC 0.00 x10^3/uL Nucleated RBC % 0.0 /100WBC Sodium 138 (135-145) mmol/L Potassium 4.0 (3.5-5.0) mmol/L Chloride 100 L (101-111) mmol/L Carbon Dioxide 30 (21-32) mmol/L Anion Gap 8.0 (6-13) BUN 31 H (6-20) mg/dL Creatinine 0.6 (0.4-1.0) mg/dL Estimated GFR (MDRD) 96 (>89) Glucose 107 H (70-100) mg/dL Calcium 8.2 L (8.5-10.3) mg/dL Total Bilirubin 1.0 (0.2-1.0) mg/dL AST 20 (10-42) IU/L ALT 15 (10-60) IU/L Alkaline Phosphatase 35 L (42-121) IU/L Total Protein 5.6 L (6.7-8.2) g/dL Albumin 3.1 L (3.2-5.5) g/dL Globulin 2.5 (2.1-4.2) g/dL Albumin/Globulin Ratio 1.2 (1.0-2.2) Assessment/Plan - Problem List (1) Ileus Impression: Pt does not have a fever and elevation of WBC at this time. Minimal bowel sounds auscultated, abdomen has less distension but is still operator batch or continuous to palpation. Pt does not endorse passing gas and have been unable to have a BM. Pt does not endorse nausea at this time. Pt remains connected to NG on intermittent suction. Surgery feels that NG may be able to come out tomorrow and states this is not SBO but ileus. Not clear the source of ileus. No UTI or other illness. Plan: 1. NG tube to low intermittent suction for decompressionUntil tomorrow. 2. Pain meds with Dilaudid IV every 2 as needed Continue 3. Multiple nausea meds as needed Continue 4. We will continue to follow (2) Dehydration resolved Assessment/Plan: Pt remains NPO at this time. BUN 46>47 >31 today Creatinine 1.1 >1.0 >0.6 today. She is at baseline. Plan: 1. Continue infusing D5.45NS w/ 20 meqs @100mls/hr 2. Continue monitoring BMP 3. Monitor I&Os (3) Hypoxia improving Assessment/Plan: Pt has a hx of asthma. Pt does not report oxygen use at home. While she is here, she was on 3L of oxygen via NC with an oxygen saturation of 94% with increasing cough and no sputum production. She has had a congestive cough while here. But it has not gotten any worse. She has had less and less oxygen need and she is now 93% on room air today. I am still puzzled by the mechanism of her hypoxemia. Plan: 1. Continue monitoring for concerns of pneumonia 2. Continue nebulizers with RT to improve secretions (4) Bronchitis Assessment/Plan: Pt reported having increase in cough. Pt does not report any sputum with cough. Plan: 1. Steroid and bronchodilators with RT are continued. 2. So far no antibiotics since she has not developed fever or increase in WBC (5) Abnormal CT scan, lung Assessment/Plan: This is seen on CT of the abdomen with lower cuts of the lower lungs. Plan: 1. CT of chest once patient is more comfortable. Once the NG comes out I will order. (6) Cognitive deficits Assessment/Plan: Per son has been gradually increasing memory loss over the past year. Presence of increased falls. Pt remains appropriate in responses to questions and participatory in her care. Plan: 1. Establish DPOA 2. Establish goals of care (7) Chronic atrial fibrillation Assessment/Plan: Pt is typically on metoprolol for rate control, and Eliquis for anticoagulation. While patient is inpatient, metoprolol is ordered PRN, eliquis held, pt to continue on lovenox. (8) AMRITA (obstructive sleep apnea) Assessment/Plan: Pt sleeps with a CPAP machine at home. 1. Have family bring CPAP machine from home for use here.
[2021-07-11] MEDS: ALBUTEROL NEB 2.5 MG/3 ML INH PRN (19:35)
[2021-07-12] MEDS: SODIUM CHLORIDE FLUSH 0.9% 10 ML SYRINGE IVP SCH ×3 (00:47→19:31)
[2021-07-12] MEDS: D5.45NS W/20 MEQ KCL 1,000 ML IV SCH ×3 (02:22→22:25)
[2021-07-12] MEDS: BENZOCAINE/MENTHOL LOZENGE MM PRN ×3 (02:22→23:02)
[2021-07-12 05:27] LABS: BASOPHILS % (AUTO) 0.8 %; EOSINOPHILS # (AUTO) 0.2 10^3/uL (0.0-0.7); EOSINOPHILS % (AUTO) 6.3 %; HCT - HEMATOCRIT 40.6 % (37.0-47.0); LYMPHOCYTES # (AUTO) 0.5 10^3/uL (1.5-3.5); LYMPHOCYTES % (AUTO) 13.4 %; MEAN CORPUSCULAR HEMOGLOBIN 31.8 pg (27.0-31.0); MEAN CORPUSCULAR VOLUME 99.3 fL (81.0-99.0); MEAN PLATELET VOLUME 9.7 fL (7.9-10.8); MONOCYTES # (AUTO) 0.7 10^3/uL (0.0-1.0); MONOCYTES % (AUTO) 17.8 %; NEUTROPHILS # (AUTO) 2.3 10^3/uL (1.5-6.6); NEUTROPHILS % (AUTO) 61.4 %; PLT - PLATELET COUNT 234 10^3/uL (130-450); RED BLOOD COUNT 4.09 10^6/uL (4.20-5.40); RED CELL DISTRIBUTION WIDTH 14.1 % (12.0-15.0); WHITE BLOOD COUNT 3.7 x10^3/uL (4.8-10.8)
[2021-07-12 05:40] LABS: ALBUMIN 3.2 g/dL (3.2-5.5); ALBUMIN/GLOBULIN RATIO 1.2 (1.0-2.2); BILIRUBIN,TOTAL 0.9 mg/dL (0.2-1.0); CALCIUM 8.3 mg/dL (8.5-10.3); CREATININE 0.6 mg/dL (0.4-1.0); POTASSIUM 3.9 mmol/L (3.5-5.0); TOTAL PROTEIN 5.9 g/dL (6.7-8.2)
[2021-07-12] MEDS: PANTOPRAZOLE 40 MG VIAL IVP SCH (06:35)
[2021-07-12] MEDS: SODIUM CHLORIDE FLUSH 0.9% 10 ML SYRINGE IVP PRN (06:36)
[2021-07-12] MEDS: BUDESONIDE 0.5 MG/2 ML NEB INH SCH ×2 (07:02→19:23)
[2021-07-12] MEDS: FORMOTEROL FUMARATE NEB 20 MCG/2 ML INH SCH ×2 (07:02→19:23)
[2021-07-12] MEDS: ENOXAPARIN 40 MG/0.4 ML SYRINGE SUBQ SCH (09:58)
--- NOTE | 2021-07-12 11:06 | XRAY Report ---
PROCEDURE: Abdomen 1 View X-Ray INDICATIONS: sbo TECHNIQUE: One view of the abdomen acquired. COMPARISON: 07/11/2021, 07/10/2021 FINDINGS: Surgical changes and devices: Anterior tube tip is in the stomach lumen in left upper quadrant. Bowel: Again noted are mild to moderately air distended small bowel loops throughout abdomen measures up to 4.3 cm in diameter on the current study is improved compared to previous day. No gross periton eal free air. Soft tissues: No suspicious abdominal calcifications. Visualized solid organ contours appear normal in size. Bones: No suspicious bony lesions. IMPRESSION: Interval decrease in the extent of small bowel loop distention suggestive of resolving small bowel ob struction. No gross free air. Reviewed by: Darius Haque MD on 07/12/2021 11:04 AM PDT Approved by: Darius Haque MD on 07/12/2021 11:04 AM PDT Station ID: [id number]
--- NOTE | 2021-07-12 12:50 | PROVIDER PROGRESS NOTE ---
Subjective - Prog Note Date Prog Note Date: 07/12/21 Prog Note Time: 12:48 - Subjective Pt reports feeling: No change Subjective: Still distended, still nauseated. NG is draining foamy white fluid. No flatus, no bowel movement. Abdominal pain is not severe. The NG hurts the back of her throat. Cough is improving from admission. But still there. No phlegm production. No fever, no chills. No shortness of breath. Current Medications - Current Medications Current Medications: Active Medications Albuterol (Albuterol Neb 2.5 Mg/3 Ml) 2.5 mg INH RTQ4H PRN PRN Reason: Wheezing Last Admin: 07/11/21 19:35 Dose: 2.5 mg Budesonide (Budesonide 0.5 Mg/2 Ml Neb) 0.5 mg INH RTBID [facility] Last Admin: 07/12/21 07:02 Dose: 0.5 mg Enoxaparin Sodium (Enoxaparin 40 Mg/0.4 Ml Syringe) 40 mg SUBQ DAILY [facility] Last Admin: 07/12/21 09:58 Dose: 40 mg Formoterol Fumarate (Formoterol Fumarate Neb 20 Mcg/2 Ml) 20 mcg INH RTBID [facility] Last Admin: 07/12/21 07:02 Dose: 20 mcg Hydromorphone HCl (Hydromorphone 0.5 Mg/0.5 Ml Syringe) 0.5 mg IVP Q2H PRN PRN Reason: Pain 8 to 10 Last Admin: 07/10/21 16:04 Dose: 0.5 mg Potassium Chloride/Dextrose/Sod Cl (D5.45ns W/20 Meq Kcl) 1,000 mls @ 100 mls/hr IV .Q10H [facility] Last Admin: 07/12/21 12:19 Dose: 100 mls/hr Metoprolol Tartrate (Metoprolol 5 Mg/5 Ml Vial) 5 mg IVP Q6HR PRN PRN Reason: Tachycardia Ondansetron HCl (Ondansetron 4 Mg/2 Ml Vial) 4 mg IVP Q6HR PRN PRN Reason: Nausea / Vomiting Pantoprazole Sodium (Pantoprazole 40 Mg Vial) 40 mg IVP QDAC [facility] Last Admin: 07/12/21 06:35 Dose: 40 mg Phenylephrine 1 % (Nasal [place]) 2 - 3 each LEAH Q4H PRN PRN Reason: NASAL CONGESTION Phenol/Menthol (Phenol Throat [place] 177 Ml) 2 sprays MM Q2HR PRN PRN Reason: Throat Pain Prochlorperazine Edisylate (Prochlorperazine 10 Mg/2 Ml Vial) 10 mg IVP Q6HR PRN PRN Reason: Nausea / Vomiting Sodium Chloride (Sodium Chloride Flush 0.9% 10 Ml Syringe) 10 ml IVP PRN PRN PRN Reason: NEEDED PER PROVIDER ORDERS Last Admin: 07/12/21 06:36 Dose: 10 ml Sodium Chloride (Sodium Chloride Flush 0.9% 10 Ml Syringe) 10 ml IVP 0100,0900,1700 [place]UMN Last Admin: 07/12/21 09:58 Dose: Not Given Throat Lozenges (Benzocaine/Menthol Lozenge) 1 lozenge MM Q2HR PRN PRN Reason: Throat pain Last Admin: 07/12/21 02:22 Dose: 1 lozenge Apixaban [Eliquis] 5 mg PO BID 06/22/17 Atorvastatin [Lipitor] 20 mg PO DAILY 06/22/17 Multivitamin [Multiple Vitamins] 1 each PO DAILY 06/22/17 Ubidecarenone [Co Q-10] 30 mg PO DAILY 06/22/17 Cholecalciferol (Vitamin D3) [Vitamin D3] 50 mcg PO DAILY 08/10/20 Fluticasone Propion/Salmeterol [Wixela 100-50 Inhub] 2 inh PO BID 08/10/20 Calcium Carbonate [Calcium] 600 mg PO DAILY 07/10/21 LORazepam [Ativan] 1 mg PO DAILY PRN 07/10/21 Meloxicam [Mobic] 1 tablet PO DAILY PRN 07/10/21 Metoprolol Succinate [Toprol Xl] 75 mg PO BID 07/11/21 Objective - Vital Signs/Intake & Output Reviewed Vital Signs: Yes Vital Signs: Vital Signs x48h Temp Pulse Pulse Resp BP Pulse Ox 07/12/21 08:00 36.5 C 93 18 122/81 H 92 07/12/21 07:05 95 19 Intake & Output: Intake & Output 07/09/21 07/10/21 07/11/21 07/12/21 23:59 23:59 23:59 23:59 Intake Total 1000 5991.412 5181.667 2014 Output Total 1965 1925 1450 Balance 1000 -2535.333 106.667 565 - Objective General Appearance: positive: No acute distress, Alert, Other (sitting up in bed, controlling remote fo TV, appy about [place] news availability, 5'5", 89 kg) Eyes Bilateral: positive: PERRL, EOMI ENT: positive: Other (NG in place, drainign white foamy) Neck: positive: No JVD. negative: Stiff neck Respiratory: positive: No respiratory distress, Other (cough is present but less congested.). negative: Wheezes, Rales, Rhonchi Cardiovascular: positive: Regular rate & rhythm. negative: Gallop/S4, Friction rub Abdomen: positive: No organomegaly, Other (Distended, bloated. Hypoactive bowel sounds.). negative: Guarding, Rebound Skin: positive: Warm, Dry, Pallor Extremities: positive: Full ROM, No pedal edema Neurologic/Psychiatric: positive: Oriented x3, CN's nml (2-12), Motor nml - Lab Results Fish Bones: 07/12/21 04:57 07/12/21 04:57 Other Labs: Lab Results x24hrs 07/12/21 07/12/21 Range/Units 04:57 04:57 WBC 3.7 L (4.8-10.8) x10^3/uL RBC 4.09 L (4.20-5.40) 10^6/uL Hgb 13.0 (12.0-16.0) g/dL Hct 40.6 (37.0-47.0) % MCV 99.3 H (81.0-99.0) fL MCH 31.8 H (27.0-31.0) pg MCHC 32.0 (32.0-36.0) g/dL RDW 14.1 (12.0-15.0) % Plt Count 234 (130-450) 10^3/uL MPV 9.7 (7.9-10.8) fL Neut # (Auto) 2.3 (1.5-6.6) 10^3/uL Lymph # (Auto) 0.5 L (1.5-3.5) 10^3/uL [place] # (Auto) 0.7 (0.0-1.0) 10^3/uL Eos # (Auto) 0.2 (0.0-0.7) 10^3/uL Baso # (Auto) 0.0 (0.0-0.1) 10^3/uL Absolute Nucleated RBC 0.00 x10^3/uL Nucleated RBC % 0.0 /100WBC Sodium 137 (135-145) mmol/L Potassium 3.9 (3.5-5.0) mmol/L Chloride 101 (101-111) mmol/L Carbon Dioxide 30 (21-32) mmol/L Anion Gap 6.0 (6-13) BUN 13 (6-20) mg/dL Creatinine 0.6 (0.4-1.0) mg/dL Estimated GFR (MDRD) 96 (>89) Glucose 104 H (70-100) mg/dL Calcium 8.3 L (8.5-10.3) mg/dL Total Bilirubin 0.9 (0.2-1.0) mg/dL AST 19 (10-42) IU/L ALT 12 (10-60) IU/L Alkaline Phosphatase 40 L (42-121) IU/L Total Protein 5.9 L (6.7-8.2) g/dL Albumin 3.2 (3.2-5.5) g/dL Globulin 2.7 (2.1-4.2) g/dL Albumin/Globulin Ratio 1.2 (1.0-2.2) Assessment/Plan - Problem List (1) Ileus Impression: She has not had a fever or elevation of WBC since admission. Continues with minimal bowel sounds auscultated, abdomen has less distension that admit but is still mildly tender to palpation. Pt does not endorse passing gas and have been unable to have a BM. Pt does not endorse nausea at this time. Pt remains connected to NG on intermittent suction. NG still in place. Surgery to reassess sometime today. Plan: 1. NG tube to low intermittent suction for decompression until Surgery removes. 2. Pain meds with Dilaudid IV every 2 as needed Continue 3. Multiple nausea meds as needed Continue 4. We will continue to follow (2) Dehydration resolved Assessment/Plan: Pt remains NPO at this time. BUN 46>47 >31 today Creatinine 1.1 >1.0 >0.6>0.6 today. She is at baseline. Plan: 1. Continue infusing D5.45NS w/ 20 meqs @100mls/hr until she can take po. 2. Continue monitoring BMP, especially K. 3. Monitor I&Os (3) Hypoxia improving Assessment/Plan: Pt has a hx of asthma. Pt does not report oxygen use at home. On admission here, she was on 3L of oxygen via NC with an oxygen saturation of 94% with increasing cough and no sputum production. Cough is not worse and slightly better but still annoying her. She has had less and less oxygen need and she is now 92% on room air today. I am still puzzled by the mechanism of her hypoxemia. No pneumonia, No CHF. No true wheezing. Plan: 1. Continue monitoring for concerns of pneumonia 2. Continue nebulizers with RT to improve secretions (4) Bronchitis Assessment/Plan: Pt reported having increase in cough. Pt does not report any sputum with cough. Plan: 1. Steroid and bronchodilators with RT are continued. 2. So far no antibiotics since she has not developed fever or increase in WBC (5) Abnormal CT scan, lung Assessment/Plan: Patchy nodular opacities present in both lung bases. No pleural effusion. Heart diffusely enlarged with a small pericardial effusion. seen on CT of the abdomen with lower cuts of the lower lungs. Plan: 1. CT of chest once patient is more comfortable. Once the NG comes out I will order. (6) Cognitive deficits Assessment/Plan: Per son has been gradually increasing memory loss over the past year. Presence of increased falls. Pt remains appropriate in responses to questions and participatory in her care. Plan: 1. Establish DPOA 2. Establish goals of care (7) Chronic atrial fibrillation Assessment/Plan: Pt is typically on metoprolol for rate control, and Eliquis for anticoagulation. While patient is inpatient, metoprolol is ordered PRN, eliquis held, pt to continue on lovenox. (8) AMRITA (obstructive sleep apnea) Assessment/Plan: Pt sleeps with a CPAP machine at home. 1. Have family bring CPAP machine from home for use here.
--- NOTE | 2021-07-12 15:13 | PROVIDER PROGRESS NOTE ---
Subjective - Subjective Pt reports feeling: Improved (cough improved. still quiet abdomen. no abdominal pain, tenderness, or nausea) Objective - Vital Signs/Intake & Output Reviewed Vital Signs: Yes Vital Signs: Vital Signs x48h Temp Pulse Resp BP Pulse Ox 07/12/21 08:00 36.5 C 93 18 122/81 H 92 Intake & Output: Intake & Output 07/09/21 07/10/21 07/11/21 07/12/21 23:59 23:59 23:59 23:59 Intake Total 1000 3486.115 4998.667 2014 Output Total 4375 1925 1850 Balance 1000 -2535.333 106.667 165 - Objective General Appearance: positive: No acute distress, Alert Eyes Bilateral: positive: PERRL, EOMI, No scleral icterus ENT: positive: No signs of dehydration Neck: positive: No JVD, Trachea midline Respiratory: positive: No respiratory distress Abdomen: positive: Non-tender, No distention, Other (scant clear ngt output over the last 8 hours) Neurologic/Psychiatric: positive: Oriented x3 - Lab Results Fish Bones: 07/12/21 04:57 07/12/21 04:57 Other Labs: Lab Results x24hrs 07/12/21 07/12/21 Range/Units 04:57 04:57 WBC 3.7 L (4.8-10.8) x10^3/uL RBC 4.09 L (4.20-5.40) 10^6/uL Hgb 13.0 (12.0-16.0) g/dL Hct 40.6 (37.0-47.0) % MCV 99.3 H (81.0-99.0) fL MCH 31.8 H (27.0-31.0) pg MCHC 32.0 (32.0-36.0) g/dL RDW 14.1 (12.0-15.0) % Plt Count 234 (130-450) 10^3/uL MPV 9.7 (7.9-10.8) fL Neut # (Auto) 2.3 (1.5-6.6) 10^3/uL Lymph # (Auto) 0.5 L (1.5-3.5) 10^3/uL [place] # (Auto) 0.7 (0.0-1.0) 10^3/uL Eos # (Auto) 0.2 (0.0-0.7) 10^3/uL Baso # (Auto) 0.0 (0.0-0.1) 10^3/uL Absolute Nucleated RBC 0.00 x10^3/uL Nucleated RBC % 0.0 /100WBC Sodium 137 (135-145) mmol/L Potassium 3.9 (3.5-5.0) mmol/L Chloride 101 (101-111) mmol/L Carbon Dioxide 30 (21-32) mmol/L Anion Gap 6.0 (6-13) BUN 13 (6-20) mg/dL Creatinine 0.6 (0.4-1.0) mg/dL Estimated GFR (MDRD) 96 (>89) Glucose 104 H (70-100) mg/dL Calcium 8.3 L (8.5-10.3) mg/dL Total Bilirubin 0.9 (0.2-1.0) mg/dL AST 19 (10-42) IU/L ALT 12 (10-60) IU/L Alkaline Phosphatase 40 L (42-121) IU/L Total Protein 5.9 L (6.7-8.2) g/dL Albumin 3.2 (3.2-5.5) g/dL Globulin 2.7 (2.1-4.2) g/dL Albumin/Globulin Ratio 1.2 (1.0-2.2) Assessment/Plan - Problem List (1) Dehydration Impression: ileus improving. no flatus; however. benign abdomen and minimal clear ngt output. ok to remove ngt. continue npo except ice chips until bowel function returns, ie flatus
[2021-07-13] MEDS: SODIUM CHLORIDE FLUSH 0.9% 10 ML SYRINGE IVP SCH ×2 (01:10→08:43)
[2021-07-13] MEDS: HYDROmorphone 0.5 MG/0.5 ML SYRINGE IVP PRN (03:47)
[2021-07-13] MEDS: FORMOTEROL FUMARATE NEB 20 MCG/2 ML INH SCH (06:11)
[2021-07-13] MEDS: BUDESONIDE 0.5 MG/2 ML NEB INH SCH (06:12)
[2021-07-13] MEDS: PANTOPRAZOLE 40 MG VIAL IVP SCH (06:49)
[2021-07-13] MEDS: SODIUM CHLORIDE FLUSH 0.9% 10 ML SYRINGE IVP PRN (06:49)
[2021-07-13 08:28] VITALS: BP 119/66
[2021-07-13] MEDS: D5.45NS W/20 MEQ KCL 1,000 ML IV SCH (08:42)
[2021-07-13] MEDS: ENOXAPARIN 40 MG/0.4 ML SYRINGE SUBQ SCH (08:43)
--- NOTE | 2021-07-13 10:37 | Discharge Plan ---
Discharge Plan Problem Reviewed?: Yes Disposition: 01 Home, Self Care Condition: Stable Diet: Regular (low residue) Activity Restrictions: Activity as Tolerated Shower Restrictions: No Driving Restrictions: Yes (no driving) Instruction Topics: Diet Low Residue Health Concerns: You had been having increasing abdominal pain and cramping for 3-4 days and had to come to our emergency room. You did better after nausea meds and fluid for hydration and was sent home. You then went to [place] emergency room then but waited too long in the waiting room so you cam back home. The pain was increasing and you were starting to get confused so your son brought you back to our emergency room. We found you to have a partial small bowel obstruction. It took a few days for it to resolve after we put a nasogastric tube in your stomach to pull out the retained fluid. You then had a bowel movement and were able to eat food. You feel stable and safe for discharge. The only other thing we need to mention to you is that in doing the CT scan of your abdomen and looking at your bowels and spleen and liver, we were able to look at the bottom part of your lungs. There seems to be old pneumonia or old scar tissue there. Please have your primary care provider follow-up CT of your lungs to make sure those nodules or not anything you need to worry about. Plan of Treatment: Unfortunately, this bowel obstruction may be due to adhesions from previous surgery. It can come back. One of the ways you can reduce your risk of recurrence is to have a low residue diet, plenty of water intake, and a stool softener every day. Not a laxative but a stool softener. If you start having to loose stools you can always back off on the stool softener. Please see your primary care provider, Dr. Neal, and follow-up. We have not changed any of your medicines. Care Goals: To remain symptom-free, without recurrent small bowel obstruction, and to remain at home Assessment: Patient states that she understands the goals. Is asking for a list of food that is in the low residue family and we will provide that for her. No Smoking: If you smoke, Please STOP! Call for help. Follow-up with: José Manuel Neal, [Provider Admit Priv/Credential] -
--- NOTE | 2021-07-13 11:09 | DISCHARGE SUMMARY ---
Discharge Summary Admit Date: 07/10/21 Discharge Date: 07/13/21 Discharging Provider: Lamar Portillo MD Primary Care Provider: José Manuel Neal DO Code Status: Attempt Resuscitation Condition at Discharge: Stable Discharge Disposition: 01 Home, Self Care - DIAGNOSES Discharge Diagnoses with Status of Each Condition: 1. Ileus 2. Dehydration 3. Hypoxia 4. Bronchitis with cough 5. Abnormal CT scan of lung 6. Cognitive deficits 7. Chronic atrial fibrillation 8. Obstructive sleep apnea - HPI History of Present Illness: This is a siddharth elderly female whose medical problems consist of chronic atrial fibrillation, obstructive sleep apnea and asthma who started having intermittent abdominal cramping and reduced bowel movements over a week ago. No blood in the stool. Appetite was much less and she was not eating as much. Her previous abdominal history consist of a and a hysterectomy. The cramping increased in severity and frequency and was much more constant by Thursday. Thursday was July 08. She became increasingly miserable and went to the emergency room on July 08. She was seen by the ER provider where her CMP was normal. White cell count was normal. And imaging study had scattered nodular opacities in the visualized portion of the base of the lungs with the largest being 2 cm. These are new when compared to 2020. The heart was enlarged. Fatty liver. Gallbladder had dependent stones without wall thickening. Biliary system without dilation. The bowel had no free fluid or air. Diverticulosis present. There was some mildly dilated fluid-filled loops of small bowel. The patient was given some pain medicine, and she felt better and she went home. She got some sleep, but as the day went on her abdominal pain returned July 09. This time her family took her to [place] emergency room. She waited about 5 or 6 hours and because they were so busy, they were told that it would be quite some time before they could be seen. So they left and they came back home. Today, nausea and vomiting was so severe in addition to the abdominal pain and they brought her back to the emergency room. The patient continues to be afebrile, and white cell count is not elevated. Her belly was distended, and she was in quite severe distress and an NG tube was placed and over a liter was removed almost instantly. She states that she could really feel the difference within a matter of minutes and was much more comfortable. The son said that they "thought they were going to lose her" over the last couple of days. She was increasingly disoriented, not herself, lethargic. Once the NG was placed and she is received a liter of fluid she has become much more chatty, much more "herself" according to the son. Repeat CT of the abdomen continues to show the bibasilar nodules in the lungs. The stomach is now distended and filled with oral contrast. Proximal and mid small bowel loops are distended and contain air-fluid levels. There is a transition point in the right mid abdomen following which small bowel loops are completely decompressed. There is diverticulosis, and solid stool present and otherwise normal caliber colon. The inferior cava is completely decompressed suggesting dehydration. Dr. Hurt, general surgery, was called by Dr. Banasl in the ER. Dr. Hurt would like to consult on the patient and he would prefer that the patient be observed by our hospitalist service. - Past Medical History Cardiovascular: reports: Hypertension, High cholesterol, Atrial fibrillation Respiratory: reports: Asthma, Shortness of breath, Sleep apnea, CPAP use Neuro: reports: Other (chronic dizziness and falls getting worse this year) Endocrine/Autoimmune: reports: None GI: reports: None WEATHERCASTER: reports: Other (, 1 adopted so 5 kids) : reports: None HEENT: reports: Macular degeneration, Other (cataracts) Psych: reports: None Musculoskeletal: reports: Osteoarthritis Derm: reports: None MRSA Hx?: No - Past Surgical History Ortho: reports: Knee replacement /WEATHERCASTER: reports: section, Hysterectomy HEENT: reports: Cataracts, Tonsil/Adenoidectomy Derm: reports: Other (Hand cellulitis with admission to hospital July 2020) - CONSULTS | PROCEDURES Consultations: General surgery with Davonte Hurt Procedures: 1 view abdomen's were done on a daily basis. They show decreasing small bowel loop distention suggestive of resolving small bowel obstruction. No free air. Abdomen pelvis CT had complete bowel obstruction with transition point in the right mid abdomen. Likely due to adhesion. Nodular densities and opacities of both lung bases. Cholelithiasis and extensive diverticulosis. Chest x-ray was with mild chronic cardiomegaly and diffuse interstitial t hickening indicating acute or chronic CHF. No parenchymal consolidations. - HOSPITAL COURSE Hospital Course: Patient was placed in observation initially with an NG tube hoping that she could resolve quickly. She did not so we transitioned her to inpatient status continue the NG tube, IV fluids, and supportive medications for pain and nausea. Surgery consult felt that this patient had the flu with a subsequent ileus. I demure it and felt that she still may have a bowel obstruction with adhesions but he was firm and stating that this was just an ileus. At this time she does not have fever, or white cell count. She inevitably had a bowel movement and we were able to pull the NG tube and start feeding her. She has done well with feeding and is anxious to go home. I explained to her that the only thing left to work-up would be the lung nodules at the bottom of her bases. We will plan to do a CT scan for that. She says she would rather go home and look at this in the outpatient setting. I did explain to her that she will need to be on a low residue diet. Please see her primary care provider in follow-up. At discharge she was a siddharth, alert elderly female temperature 36.4. Heart rate 91. Blood pressure 119/66. Respirations 16. 96% on room air. She is 5 feet 5 inches tall and weighs 89 kg. She is a moderately overweight elderly female who looks her stated age. Alert, oriented to person place little bit vague on time. Neck is supple. Lungs are clear to auscultation and percussion. Diminished at the bases. No increased respiratory effort with talking to me. Regular rate and rhythm. Abdomen has hyperactive bowel sounds, nontender. She states she still feels a little bloated after breakfast. Has had a bowel movem ent yesterday and a bowel movement today. Extremities are without edema. Greater than 30 minutes was spent coordinating discharge. - ALLERGIES Allergies/Adverse Reactions: Allergies Allergy/AdvReac Type Severity Reaction Status Date / Time meloxicam Allergy Rash Verified 07/09/21 21:58 - MEDICATIONS Home Medications: Ambulatory Orders Medication Instructions Recorded Confirmed Apixaban [Eliquis] 5 mg PO BID 06/22/17 07/10/21 Atorvastatin [Lipitor] 20 mg PO DAILY 06/22/17 07/10/21 Multivitamin [Multiple Vitamins] 1 each PO DAILY 06/22/17 07/10/21 Ubidecarenone [Co Q-10] 30 mg PO DAILY 06/22/17 07/10/21 Cholecalciferol (Vitamin D3) 50 mcg PO DAILY 08/10/20 07/10/21 [Vitamin D3] Fluticasone Propion/Salmeterol 2 inh PO BID 08/10/20 07/10/21 [Wixela 100-50 Inhub] Calcium Carbonate [Calcium] 600 mg PO DAILY 07/10/21 07/10/21 LORazepam [Ativan] 1 mg PO DAILY PRN 07/10/21 07/10/21 Meloxicam [Mobic] 1 tablet PO DAILY PRN 07/10/21 07/10/21 Metoprolol Succinate [Toprol Xl] 75 mg PO BID 07/11/21 07/11/21 - LABS Result Diagrams: 07/12/21 04:57 07/12/21 04:57
== END 2021-07-13 12:56 | disposition home or self-care (01) | DRG 389 ==
LOC: ED 21:36 → MS2 07-10 02:13 → OBSVTOIN 07-10 10:00
PROVIDERS: ADMIT Specialist; ATTEND Specialist
DX: K56.50 Intestinal adhesions [bands], unspecified as to partial versus complete obstruction (principal); K56.52 Intestinal adhesions [bands] with complete obstruction; I48.20 Chronic atrial fibrillation, unspecified; E86.0 Dehydration; R09.02 Hypoxemia; J40 Bronchitis, not specified as acute or chronic; Z20.822 Contact with and (suspected) exposure to COVID-19; R91.8 Other nonspecific abnormal finding of lung field; G47.33 Obstructive sleep apnea (adult) (pediatric); R41.89 Other symptoms and signs involving cognitive functions and awareness; Z91.81 History of falling; Z79.01 Long term (current) use of anticoagulants; K57.30 Diverticulosis of large intestine without perforation or abscess without bleeding; E78.00 Pure hypercholesterolemia, unspecified; J45.909 Unspecified asthma, uncomplicated; I11.9 Hypertensive heart disease without heart failure
CPT/HCPCS: 36415; 71046; 74018; 74176; 80053; 81003; 83605; 83690; 85025; 87633; 94640; 94664; 96372; 96374; 99284; 99285; A9270; G0378; J1170; J1650; J7120; J7626; 81001; 87086

== ENCOUNTER 2021-09-12 12:19 | Outpatient (CLI) | payer MEDICARE, OTHER ==
--- NOTE | 2021-09-12 18:53 | Ultrasound Report ---
PROCEDURE: Head or Neck Soft Tissue INDICATIONS: MULTIPLE THYROID NODULES TECHNIQUE: Real-time scanning was performed of the thyroid gland, with image documentation. COMPARISON: Ultrasound thyroid, 04/02/2020. FINDINGS: Right: Thyroid lobe measures 2.8 x 2.3 x 5.2 cm, and is heterogeneous in echotexture. Left: Thyroid lobe measures 1.8 x 2.5 x 6.4 cm, and is heterogeneous in echotexture. Isthmus: Size mm thick. Nodule number: 1 Location: Right superior Size: 1.6 x 1.1 x 1.6 cm; previously 2.0 x 1.6 x 1.7. Composition: Solid Echogenicity: Hypoechoic Shape: wider than tall. Margins: Smooth Echogenic foci: None Total points: 4 ACR TI-RADS category: TI-RADS 4 Nodule number: 2 Location: Right mid Size: 1.7 x 1.1 x 1.7 cm; previously 2.5 x 1.5 x 2.0 cm. Composition: Solid Echogenicity: Hypoechoic Shape: wider than tall. Margins: Irregular Echogenic foci: None Total points: 6 ACR TI-RADS category: TI-RADS 4 Nodule number: 3 Location: Right inferior Size: 0.7 x 0.5 x 1.0 cm.; Previously 1.3 x 1.3 cm Composition: Spongiform Echogenicity: Hypoechoic Shape: wider than tall. Margins: Smooth Echogenic foci: None Total points: 2 ACR TI-RADS category: TI-RADS 2 Nodule number: 4 Location: Left inferior Size: 2.3 x 1.6 x 1.8 cm.; Previously 2.6 x 1.8 x 2.2 Composition: Solid Echogenicity: Hypoechoic Shape: wider than tall. Margins: Irregular Echogenic foci: None. Total points: 6 ACR TI-RADS category: TI-RADS 4 Nodule number: 5 Location: Left superior Size: 1.2 x 0.5 x 1.0 cm.; Previously 1.2 x 0.7 x 1.2 cm Composition: Solid Echogenicity: Hypoechoic Shape: wider than tall. Margins: Smooth Echogenic foci: None. Total points: 4 ACR TI-RADS category: TI-RADS 4 Nodule number: 6 Location: Left superior/mid Size: 0.5 x 0.5 x 0.6 cm.; Previously not seen Composition: Solid Echogenicity: Hypoechoic Shape: wider than tall. Margins: Smooth Echogenic foci: Punctate. Total points: 7 ACR TI-RADS category: TI-RADS 4 IMPRESSION: 1. Multiple thyroid nodules bilaterally, demonstrating no interval increase in size. 2. There is a small new nodule in the superior-mid aspect of the left thyroid lobe. 3. Continue follow-up is recommended. ACR TI-RADS definitions and recommendations: TI-RADS 1 (benign): 0 points. FNA not needed. TI-RADS 2 (not suspicious): 2 points. FNA not needed. TI-RADS 3 (mildly suspicious): 3 points. "FNA if 2.5 cm or larger, follow up if 1.5 cm or larger (at 1, 3, and 5 years). TI-RADS 4 (moderately suspicious): 4-6 points. "FNA if 1.5 cm or larger, follow up if 1 cm or larger (at 1, 2, 3, and 5 years). TI-RADS 5 (highly suspicious): 7 points or more. "FNA if 1 cm or larger, follow up if 0.5 cm or larger (every year for 5 years). Reviewed by: Shira Guadalupe MD on 09/12/2021 6:52 PM PDT Approved by: Shira Guadalupe MD on 09/12/2021 6:52 PM PDT Station ID: [id number]
== END 2021-09-12 12:20 | disposition home or self-care (01) ==
LOC: DI 12:19
PROVIDERS: ATTEND Registered Nurse
DX: R91.8 Other nonspecific abnormal finding of lung field (principal); E04.2 Nontoxic multinodular goiter

== ENCOUNTER 2021-10-04 09:15 | Outpatient (CLI) | payer MEDICARE, OTHER ==
[2021-10-04 14:41] LABS: BASOPHILS # (AUTO) 0.1 10^3/uL (0.0-0.1); BASOPHILS % (AUTO) 1.4 %; EOSINOPHILS # (AUTO) 0.2 10^3/uL (0.0-0.7); EOSINOPHILS % (AUTO) 4.7 %; HCT - HEMATOCRIT 43.7 % (37.0-47.0); HGB - HEMOGLOBIN 14.2 g/dL (12.0-16.0); LYMPHOCYTES # (AUTO) 0.8 10^3/uL (1.5-3.5); MEAN CORPUSCULAR HEMOGLOBIN 32.2 pg (27.0-31.0); MEAN CORPUSCULAR HGB CONC 32.5 g/dL (32.0-36.0); MEAN CORPUSCULAR VOLUME 99.1 fL (81.0-99.0); MEAN PLATELET VOLUME 10.2 fL (7.9-10.8); MONOCYTES # (AUTO) 0.4 10^3/uL (0.0-1.0); MONOCYTES % (AUTO) 8.2 %; NEUTROPHILS # (AUTO) 3.6 10^3/uL (1.5-6.6); NEUTROPHILS % (AUTO) 69.5 %; PLT - PLATELET COUNT 295 10^3/uL (130-450); RED BLOOD COUNT 4.41 10^6/uL (4.20-5.40); RED CELL DISTRIBUTION WIDTH 14.4 % (12.0-15.0); WHITE BLOOD COUNT 5.1 x10^3/uL (4.8-10.8)
[2021-10-04 14:49] LABS: ALBUMIN 4.1 g/dL (3.2-5.5); CALCIUM 9.5 mg/dL (8.5-10.3); CREATININE 0.9 mg/dL (0.4-1.0); INR 1.3 (0.8-1.2); PHOSPHORUS 3.6 mg/dL (2.5-4.6); POTASSIUM 4.4 mmol/L (3.5-5.0)
== END 2021-10-04 09:16 | disposition home or self-care (01) ==
LOC: LAB.S 09:15
PROVIDERS: ATTEND Internal Medicine Cardiovascular Disease
DX: I48.0 Paroxysmal atrial fibrillation (principal)
CPT/HCPCS: 36415; 80069; 85025; 85610

== ENCOUNTER 2022-01-16 08:00 | Outpatient (CLI) | payer MEDICARE, OTHER ==
--- NOTE | 2022-01-16 17:33 | XRAY Report ---
PROCEDURE: Chest 2 View X-Ray INDICATIONS: SHORTNESS OF BREATH TECHNIQUE: 2 views of the chest COMPARISON: 07/09/2021 FINDINGS: Mildly prominent interstitium without dense consolidation. Cardiomegaly, possibly slightly increased. No pleural effusions. No acute or suspicious osseous abnormality. IMPRESSION: Cardiomegaly might be slightly increased. Mildly prominent interstitium could represent edema and thi s context, versus atypical infection. No pleural effusions. Consider future imaging surveillance to a [facility] for resolution. Reviewed by: Fabián Hall MD on 01/16/2022 5:32 PM PDT Approved by: Fabián Hall MD on 01/16/2022 5:32 PM PDT Station ID: [id number]
== END 2022-01-16 23:59 | disposition home or self-care (01) ==
LOC: DI.S 08:00
PROVIDERS: ATTEND Physician Assistant Medical
DX: R06.02 Shortness of breath (principal); I51.7 Cardiomegaly

== ENCOUNTER 2022-02-18 08:53 | Outpatient (CLI) | payer MEDICARE, OTHER | END 2022-02-18 08:54 | disposition home or self-care (01) | LOC: DI 08:53 | PROVIDERS: ATTEND Physician Assistant Medical | DX: I48.20 Chronic atrial fibrillation, unspecified (principal); I08.1 Rheumatic disorders of both mitral and tricuspid valves; I77.810 Thoracic aortic ectasia; Z96.89 Presence of other specified functional implants | CPT/HCPCS: 93306 ==

== ENCOUNTER 2022-08-22 06:54 | Emergency (ER) | payer MEDICARE, OTHER ==
[2022-08-22] MEDS ORDERED: IPRATROPIUM/ALBUTEROL 3 ML NEB INH STA (07:34)
--- NOTE | 2022-08-22 07:54 | ED Physician Documentation ---
History of Present Illness - Stated complaint Stated Complaint: SOA - Chief complaint Chief Complaint: Resp - History obtained from History obtained from: Patient - History of Present Illness Timing: Today Pain level max: 0 Pain level now: 0 - Additonal information Additional information: Patient is an 82-year-old female with a history of atrial fibrillation who presents to the emergency department with dyspnea this morning. She states that she felt like she could not catch her breath. She states that she does not walk at home, she uses a motorized wheelchair. She does not have any chest pain or palpitations. Nothing makes it better or worse. Currently she states she does not feel short of breath anymore. 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) : None HEENT: Macular degeneration Psych: None Musculoskeletal: Osteoarthritis Derm: None - Past Surgical History Past Surgical History: Yes Ortho: Knee replacement /DISK AND TAPE MACHINE TENDER: section, Hysterectomy HEENT: Cataracts, Tonsil/Adenoidectomy Derm: Other (Hand cellulitis with admission to hospital July 2020) - Present Medications Home Medications: Ambulatory Orders Medication Instructions Recorded Confirmed Apixaban [Eliquis] 5 mg PO BID 06/22/17 07/10/21 Atorvastatin [Lipitor] 20 mg PO DAILY 06/22/17 07/10/21 Multivitamin [Multiple Vitamins] 1 each PO DAILY 06/22/17 07/10/21 Ubidecarenone [Co Q-10] 30 mg PO DAILY 06/22/17 07/10/21 Cholecalciferol (Vitamin D3) 50 mcg PO DAILY 08/10/20 07/10/21 [Vitamin D3] Fluticasone Propion/Salmeterol 2 inh PO BID 08/10/20 07/10/21 [Wixela 100-50 Inhub] Calcium Carbonate [Calcium] 600 mg PO DAILY 07/10/21 07/10/21 LORazepam [Ativan] 1 mg PO DAILY PRN 07/10/21 07/10/21 Meloxicam [Mobic] 1 tablet PO DAILY PRN 07/10/21 07/10/21 Metoprolol Succinate [Toprol Xl] 75 mg PO BID 07/11/21 07/11/21 Albuterol Sulf [Ventolin Hfa 1 - 2 puffs INH Q4HR PRN #1 each 08/22/22 Inhaler] - Allergies Allergies/Adverse Reactions: Allergies Allergy/AdvReac Type Severity Reaction Status Date / Time meloxicam Allergy Rash Verified 08/22/22 07:10 - Social History Does the pt smoke?: No Smoking Status: Never smoker Does the pt drink ETOH?: No Does the pt have substance abuse?: No - Immunizations Immunizations are current?: Yes - POLST Patient has POLST: No POLST Status: Full Code PD ED PE NORMAL - Vitals Vital signs reviewed: Yes - General General: Alert and oriented X 3, No acute distress, Well developed/nourished - HEENT HEENT: PERRL, Moist mucous membranes - Neck Neck: Supple, no meningeal sign - Cardiac Cardiac: Other (Irregularly irregular) - Respiratory Respiratory: No respiratory distress, Other (Diminished breath sounds with wheezing bilaterally) - Abdomen Abdomen: Soft, Non tender, Non distended - Derm Derm: Warm and dry - Extremities Extremities: No edema, No calf tenderness / cord - Neuro Neuro: Alert and oriented X 3 - Psych Psych: Normal mood, Normal affect Results - Vitals Vitals: Vital Signs - 24 hr 08/22/22 08/22/22 08/22/22 06:58 08:08 08:53 Temperature 36.5 C Heart Rate 123 H 82 98 Respiratory 20 20 19 Rate Blood Pressure 132/104 H 141/109 H O2 Saturation 98 96 Oxygen O2 Source Room air - EKG (time done) 0821 EKG releavant findings:: EKG personally interpreted by author of this note. Relevant findings are: Rate: Rate (enter#) (109) Rhythm: Atrial fibrillation [place]: Normal QRS: Normal Ischemia: Non specific changes - Labs Labs: Laboratory Tests 08/22/22 08/22/22 07:44 07:44 WBC 5.6 RBC 4.28 Hgb 13.7 Hct 41.6 MCV 97.2 MCH 32.0 H MCHC 32.9 RDW 13.8 Plt Count 246 MPV 10.0 Neut # (Auto) 4.1 Lymph # (Auto) 0.6 L [place] # (Auto) 0.5 Eos # (Auto) 0.2 Baso # (Auto) 0.1 Absolute Nucleated RBC 0.00 Nucleated RBC % 0.0 Sodium 137 Potassium 3.9 Chloride 100 L Carbon Dioxide 29 Anion Gap 8.0 BUN 12 Creatinine 0.7 Estimated GFR (MDRD) 80 L Glucose 93 Calcium 8.8 Total Bilirubin 0.8 AST 26 ALT 21 Alkaline Phosphatase 57 Total Protein 6.7 Albumin 3.8 Globulin 2.9 Albumin/Globulin Ratio 1.3 Lipase 26 - Rads (name of study) cxr Relevant Findings:: Final report received, See rad report PD Medical Decision Making - ED course Complexity details: reviewed results, re-evaluated patient, considered differential (No ST elevation [place], no aortic dissection, no PE, no tension pneumothorax, no aortic aneurysm), d/w patient ED course: 82-year-old female with shortness of breath this morning. She had decreased breath sounds bilaterally with wheezing. Given a DuoNeb treatment and breathing improved, she no longer feels short of breath. She is able to get to her electric wheelchair without shortness of breath. No evidence of PE, ACS. She is out of her albuterol inhaler, we will refill this for her. Patient is well- appearing, nontoxic. Afebrile. No hypoxia. No respiratory distress. Patient counseled regarding signs and symptoms for which I believe and urgent re- evaluation would be necessary. Patient with good understanding of and agreement to plan and is comfortable going home at this time This document was made in part using voice recognition software. While efforts are made to proofread this document, sound alike and grammatical errors may occur. Departure - Departure Disposition: 01 Home, Self Care Clinical Impression: Asthma exacerbation Qualifiers: Asthma severity: unspecified severity Asthma persistence: unspecified Qualified Code(s): J45.901 - Unspecified asthma with (acute) exacerbation Condition: Good Instructions: ED Reactive Airway Disease Follow-Up: your,doctor in 3 days [Other] Prescriptions: Albuterol Sulf [Ventolin Hfa Inhaler] 1 - 2 puffs INH Q4HR PRN #1 each PRN Reason: Shortness Of Air/Wheezing Comments: Please follow-up with your doctor for further care. Please return if you worsen. Your prescription was sent to [facility] in [place]. Please use the inhaler as prescribed, this will help with your shortness of breath. Discharge Date/Time: 08/22/22 09:09
[2022-08-22 07:56] LABS: BASOPHILS # (AUTO) 0.1 10^3/uL (0.0-0.1); BASOPHILS % (AUTO) 0.9 %; EOSINOPHILS # (AUTO) 0.2 10^3/uL (0.0-0.7); EOSINOPHILS % (AUTO) 3.8 %; HCT - HEMATOCRIT 41.6 % (37.0-47.0); HGB - HEMOGLOBIN 13.7 g/dL (12.0-16.0); LYMPHOCYTES # (AUTO) 0.6 10^3/uL (1.5-3.5); LYMPHOCYTES % (AUTO) 11.3 %; MEAN CORPUSCULAR HGB CONC 32.9 g/dL (32.0-36.0); MEAN CORPUSCULAR VOLUME 97.2 fL (81.0-99.0); MONOCYTES # (AUTO) 0.5 10^3/uL (0.0-1.0); MONOCYTES % (AUTO) 9.7 %; NEUTROPHILS # (AUTO) 4.1 10^3/uL (1.5-6.6); NEUTROPHILS % (AUTO) 74.1 %; PLT - PLATELET COUNT 246 10^3/uL (130-450); RED BLOOD COUNT 4.28 10^6/uL (4.20-5.40); RED CELL DISTRIBUTION WIDTH 13.8 % (12.0-15.0); WHITE BLOOD COUNT 5.6 x10^3/uL (4.8-10.8)
[2022-08-22 08:09] LABS: ALBUMIN 3.8 g/dL (3.2-5.5); ALBUMIN/GLOBULIN RATIO 1.3 (1.0-2.2); BILIRUBIN,TOTAL 0.8 mg/dL (0.2-1.0); CALCIUM 8.8 mg/dL (8.5-10.3); CREATININE 0.7 mg/dL (0.4-1.0); POTASSIUM 3.9 mmol/L (3.5-5.0); TOTAL PROTEIN 6.7 g/dL (6.7-8.2)
--- NOTE | 2022-08-22 08:12 | XRAY Report ---
PROCEDURE: Chest 1 View X-Ray INDICATIONS: dyspnea TECHNIQUE: One view of the chest was acquired. COMPARISON: None. FINDINGS: Surgical changes and devices: None. Lungs and pleura: No pleural effusions or pneumothorax. Lungs are clear. Mediastinum: Mediastinal contours appear normal. Heart size is normal. Bones and chest wall: No suspicious bony lesions. Overlying soft tissues appear unremarkable. IMPRESSION: No acute cardiopulmonary process. Reviewed by: Ismael Avilez on 08/22/2022 8:11 AM PDT Approved by: Ismael Avilez on 08/22/2022 8:11 AM PDT Station ID: [id number]
[2022-08-22 08:54] VITALS: BP 141/109
== END 2022-08-22 09:09 | disposition home or self-care (01) ==
LOC: ED 06:54
DX: J45.901 Unspecified asthma with (acute) exacerbation (principal)
CPT/HCPCS: 36415; 80053; 83690; 85025; 93005; 94640; 99284

== ENCOUNTER 2022-11-24 06:33 | Inpatient (IN) | payer MEDICARE, OTHER ==
--- OUTSIDE RECORDS SUMMARY | 2022-11-24 06:52 | EXTERNAL MEDICAL SUMMARY RPT | Continuity of Care Document ---
Author Name Unknown Address [address] [place] [address] Phone Organization [facility] Address [address] [place] [address] Phone Care Team Providers Care Business Manager [employer] Name Role Phone Unavailable Unavailable Unavailable Ting Torres Unavailable Unavailable Medications date description facility 2022-10-14 00:00 [facility]semide [facility] 2022-10-15 00:00 furosemide [facility] 2022-10-16 00:00 furosemide [facility] 2022-10-17 00:00 furosemide [facility] 2022-10-14 00:00 metoprolol succinate [facility] [place] 2022-10-15 00:00 metoprolol succinate [facility] [place] 2022-10-16 00:00 metoprolol succinate [facility] [place] 2022-10-17 00:00 metoprolol succinate [facility] [place] 2022-10-14 00:00 fluticasone propion-salmeterol [facility] 2022-10-15 00:00 fluticasone propion-salmeterol [facility] 2022-10-16 00:00 fluticasone propion-salmeterol [facility] 2022-10-17 00:00 fluticasone propion-salmeterol [facility] 2022-10-14 00:00 cholecalciferol (vitamin d3) [facility] 2022-10-15 00:00 cholecalciferol (vitamin d3) [facility] 2022-10-16 00:00 cholecalciferol (vitamin d3) [facility] 2022-10-17 00:00 cholecalciferol (vitamin d3) [facility] 2022-10-14 00:00 cholecalciferol (vitamin d3) [facility] 2022-10-15 00:00 cholecalciferol (vitamin d3) [facility] 2022-10-16 00:00 cholecalciferol (vitamin d3) [facility] 2022-10-17 00:00 cholecalciferol (vitamin d3) [facility] 2022-10-14 00:00 fluticasone propion-salmeterol [facility] 2022-10-15 00:00 fluticasone propion-salmeterol [facility] 2022-10-16 00:00 fluticasone propion-salmeterol [facility] 2022-10-17 00:00 fluticasone propion-salmeterol [facility] 2022-10-14 00:00 fluticasone propion-salmeterol [facility] 2022-10-15 00:00 fluticasone propion-salmeterol [facility] 2022-10-16 00:00 fluticasone propion-salmeterol [facility] 2022-10-17 00:00 fluticasone propion-salmeterol [facility] 2022-10-14 00:00 furosemide [facility] 2022-10-15 00:00 furosemide [facility] 2022-10-16 00:00 furosemide [facility] 2022-10-17 00:00 furosemide [facility] 2022-10-14 00:00 metoprolol succinate [facility] [place] 2022-10-15 00:00 metoprolol succinate [facility] [place] 2022-10-16 00:00 metoprolol succinate [facility] [place] 2022-10-17 00:00 metoprolol succinate [facility] [place] 2022-10-14 00:00 furosemide [facility] 2022-10-15 00:00 furosemide [facility] 2022-10-16 00:00 furosemide [facility] 2022-10-17 00:00 furosemide [facility] 2022-10-14 00:00 magnesium amino acid chelate [facility] 2022-10-15 00:00 magnesium amino acid chelate [facility] 2022-10-16 00:00 magnesium amino acid chelate [facility] 2022-10-17 00:00 magnesium amino acid chelate [facility] 2022-10-14 00:00 fluticasone propion-salmeterol [facility] 2022-10-15 00:00 fluticasone propion-salmeterol [facility] 2022-10-16 00:00 fluticasone propion-salmeterol [facility] 2022-10-17 00:00 fluticasone propion-salmeterol [facility] 2022-10-14 00:00 magnesium amino acid chelate [facility] 2022-10-15 00:00 magnesium amino acid chelate [facility] 2022-10-16 00:00 magnesium amino acid chelate [facility] 2022-10-17 00:00 magnesium amino acid chelate [facility] 2022-10-14 00:00 metoprolol succinate [facility] 2022-10-15 00:00 metoprolol succinate [facility] 2022-10-16 00:00 metoprolol succinate [facility] 2022-10-17 00:00 metoprolol succinate [facility] 2022-10-14 00:00 cholecalciferol (vitamin d3) [facility] 2022-10-15 00:00 cholecalciferol (vitamin d3) [facility] 2022-10-16 00:00 cholecalciferol (vitamin d3) [facility] 2022-10-17 00:00 cholecalciferol (vitamin d3) [facility] 2022-10-14 00:00 magnesium amino acid chelate [facility] 2022-10-15 00:00 magnesium amino acid chelate [facility] 2022-10-16 00:00 magnesium amino acid chelate [facility] 2022-10-17 00:00 magnesium amino acid chelate [facility] 2022-10-14 00:00 metoprolol succinate [facility] 2022-10-15 00:00 metoprolol succinate [facility] 2022-10-16 00:00 metoprolol succinate [facility] 2022-10-17 00:00 metoprolol succinate [facility] 2022-10-14 00:00 furosemide [facility] 2022-10-15 00:00 furosemide [facility] 2022-10-16 00:00 furosemide [facility] 2022-10-17 00:00 furosemide [facility] 2022-10-14 00:00 calcium carbonate [facility] 2022-10-15 00:00 calcium carbonate [facility] 2022-10-16 00:00 calcium carbonate [facility] 2022-10-17 00:00 calcium carbonate [facility] 2022-10-14 00:00 aspirin [facility] 2022-10-15 00:00 aspirin [facility] 2022-10-16 00:00 aspirin [facility] 2022-10-17 00:00 aspirin [facility] Problems date description facility 2022-10-14 00:00 Asthma [facility] 2022-10-14 00:00 Other and unspecified hyperlipi demia [facility] 2022-10-14 00:00 Atrial fibrillation [facility] 2022-10-14 00:00 Asthma, unspecified [facility] 2022-10-14 00:00 Hyperlipidemia [facility] 2022-10-14 00:00 Hyperlipidemia, unspecified [facility] 2022-10-14 00:00 Paroxysmal atrial fibrillation [facility] 2022-10-14 00:00 Unspecified asthma, uncomplicat ed [facility] 2022-10-15 00:00 Asthma [facility] 2022-10-15 00:00 Other and unspecified hyperlipi demia [facility] 2022-10-15 00:00 Atrial fibrillation [facility] 2022-10-15 00:00 Asthma, unspecified [facility] 2022-10-15 00:00 Hyperlipidemia [facility] 2022-10-15 00:00 Hyperlipidemia, unspecified [facility] 2022-10-15 00:00 Paroxysmal atrial fibrillation [facility] 2022-10-15 00:00 Unspecified asthma, uncomplicat ed [facility] 2022-10-16 00:00 Asthma [facility] 2022-10-16 00:00 Other and unspecified hyperlipi demia [facility] 2022-10-16 00:00 Atrial fibrillation [facility] 2022-10-16 00:00 Asthma, unspecified [facility] 2022-10-16 00:00 Hyperlipidemia [facility] 2022-10-16 00:00 Hyperlipidemia, unspecified [facility] 2022-10-16 00:00 Paroxysmal atrial fibrillation [facility] 2022-10-16 00:00 Unspecified asthma, uncomplicat ed [facility] 2022-10-17 00:00 Asthma [facility] 2022-10-17 00:00 Other and unspecified hyperlipi demia [facility] 2022-10-17 00:00 Atrial fibrillation [facility] 2022-10-17 00:00 Asthma, unspecified [facility] 2022-10-17 00:00 Hyperlipidemia [facility] 2022-10-17 00:00 Hyperlipidemia, unspecified [facility] 2022-10-17 00:00 Paroxysmal atrial fibrillation [facility] 2022-10-17 00:00 Unspecified asthma, uncomplicat ed [facility] Procedures date description facility 2022-10-14 00:00 Visit Code Hold [facility] Social History date description facility 2022-10-14 00:00 Never smoker [facility] Vital Signs date measurement value units 2022-10-14 00:00 BMI 32.82 kg/m2 2022-10-14 00:00 BP_diastolic 102 mmHg 2022-10-14 00:00 BP_systolic 130 mmHg 2022-10-14 00:00 heart_rate 102 /min 2022-10-14 00:00 height_metric 164.47 cm 2022-10-14 00:00 height_standard 64.75 in 2022-10-14 00:00 respiration_rate 18 /min 2022-10-14 00:00 temperature_metric 36.11 C 2022-10-14 00:00 temperature_standard 97 F 2022-10-14 00:00 weight_metric 88.45 kg 2022-10-14 00:00 weight_standard 195 lb
[2022-11-24] MEDS ORDERED: IPRATROPIUM 0.2 MG/ML NEB INH STA (06:54)
[2022-11-24] MEDS ORDERED: methylPREDNISolone SUCCINATE 125 MG/2 ML VIAL IVP STA (06:54)
[2022-11-24] MEDS ORDERED: LEVALBUTEROL 1.25 MG/3 ML NEB INH STA (07:02)
[2022-11-24 07:11] LABS: BASOPHILS # (AUTO) 0.1 10^3/uL (0.0-0.1); BASOPHILS % (AUTO) 0.8 %; EOSINOPHILS # (AUTO) 0.2 10^3/uL (0.0-0.7); EOSINOPHILS % (AUTO) 3.2 %; HCT - HEMATOCRIT 41.4 % (37.0-47.0); HGB - HEMOGLOBIN 13.7 g/dL (12.0-16.0); LYMPHOCYTES # (AUTO) 0.7 10^3/uL (1.5-3.5); LYMPHOCYTES % (AUTO) 11.5 %; MEAN CORPUSCULAR HEMOGLOBIN 31.8 pg (27.0-31.0); MEAN CORPUSCULAR HGB CONC 33.1 g/dL (32.0-36.0); MEAN CORPUSCULAR VOLUME 96.1 fL (81.0-99.0); MEAN PLATELET VOLUME 10.8 fL (7.9-10.8); MONOCYTES # (AUTO) 0.6 10^3/uL (0.0-1.0); MONOCYTES % (AUTO) 9.5 %; NEUTROPHILS # (AUTO) 4.6 10^3/uL (1.5-6.6); NEUTROPHILS % (AUTO) 74.7 %; PLT - PLATELET COUNT 214 10^3/uL (130-450); RED BLOOD COUNT 4.31 10^6/uL (4.20-5.40); RED CELL DISTRIBUTION WIDTH 14.9 % (12.0-15.0); WHITE BLOOD COUNT 6.2 x10^3/uL (4.8-10.8)
--- NOTE | 2022-11-24 07:11 | ED Physician Documentation ---
PD HPI URI - Stated complaint Stated Complaint: SOA - Chief complaint Chief Complaint: Resp - History obtained from History obtained from: Patient - History of Present Illness Timing - onset: How many days ago (few), How many weeks ago (3 weeks of some increasing asthma symptoms. Increasingly worse the past few days.) Timing duration: Days (few) Timing details: Gradual onset, Still present (much worse overnight despite MDI.) Associated symptoms: Dry cough, Dyspnea. No: Fever, Chills, Nasal congestion, Hemoptysis, Bilateral edema Contributing factors: No: Sick contact, Travel, Unimmunized Improves by: No: MDI/nebulizer Worsened by: Activity Similar symptoms before: Diagnosis (Asthma flare ups.) Recently seen: Not recently seen Review of Systems Constitutional: denies: Fever, Chills, Myalgias Nose: denies: Rhinorrhea / runny nose, Congestion Throat: denies: Sore throat Cardiac: reports: Palpitations. denies: Chest pain / pressure, Pedal edema, Calf pain Respiratory: reports: Dyspnea, Cough, Wheezing GI: denies: Vomiting, Diarrhea, Bloody / black stool Neurologic: reports: Generalized weakness, Focal weakness (left foot drop chronically). denies: Near syncope PD PAST MEDICAL HISTORY - Past Medical History Past Medical History: Yes Cardiovascular: Congestive heart failure (cardiomyopathy due to HTN? with ECHO done here 02/18/22 showing mild valvular diseases, LVH, and impaired LV function with EF 37%. [employer] is out of [facility]ology group.), Hypertension, High cholesterol, Atrial fibrillation (with Watchman procedure about a year ago. no anticoagulants.) Respiratory: Asthma (MDI daily. Only occasional flares. Not feeling ill recently. ), Shortness of breath, Sleep apnea Neuro: None Endocrine/Autoimmune: None GI: None LEAD REFINER: Other : None HEENT: Macular degeneration Psych: None Musculoskeletal: Osteoarthritis Derm: None - Past Surgical History Past Surgical History: Yes Ortho: Knee replacement /LEAD REFINER: section, Hysterectomy HEENT: Cataracts, Tonsil/Adenoidectomy Derm: Other - Present Medications Home Medications: Ambulatory Orders Medication Instructions Recorded Confirmed Atorvastatin [Lipitor] 20 mg PO DAILY 06/22/17 11/24/22 Multivitamin [Multiple Vitamins] 1 each PO DAILY 06/22/17 11/24/22 Ubidecarenone [Co Q-10] 100 mg PO DAILY 06/22/17 11/24/22 Cholecalciferol (Vitamin D3) 50 mcg PO DAILY 08/10/20 11/24/22 [Vitamin D3] Fluticasone Propion/Salmeterol 2 inh PO BID 08/10/20 11/24/22 [Wixela 100-50 Inhub] Calcium Carbonate [Calcium] 600 mg PO DAILY 07/10/21 11/24/22 Meloxicam [Mobic] 15 mg PO DAILY PRN 07/10/21 11/24/22 Metoprolol Succinate [Toprol Xl] 75 mg PO BID 07/11/21 11/24/22 Aspirin [Aspirin EC] 81 mg PO DAILY 11/24/22 11/24/22 Docusate Sodium 250Mg Capsule 250 mg PO DAILY 11/24/22 11/24/22 [Colace 250Mg Capsule] Montelukast Sodium 10 mg PO HS 11/24/22 11/24/22 Oxymetazoline HCl [Afrin] 2 sprays LEAH Q12H 11/24/22 11/24/22 - Allergies Allergies/Adverse Reactions: Allergies Allergy/AdvReac Type Severity Reaction Status Date / Time meloxicam Allergy Rash Verified 11/24/22 06:47 - Social History Does the pt smoke?: No Smoking Status: Never smoker Does the pt drink ETOH?: No Does the pt have substance abuse?: No - Immunizations Immunizations are current?: Yes - POLST Patient has POLST: No POLST Status: Full Code PD ED PE NORMAL - Vitals Vital signs reviewed: Yes (fast atrial fib; sats 96%. whezing diffuse. ) - General General: Alert and oriented X 3, Well developed/nourished - HEENT HEENT: Pharynx benign - Neck Neck: Supple, no meningeal sign, No adenopathy - Cardiac Cardiac: No: RRR (irregular and rapid at 110-130.) - Respiratory Respiratory: No: Clear bilaterally (coarse right mid lung. Wheezes diffusely, with some prolonged exp phase. Post nebulizer on my exam. No fine crackles. ) - Abdomen Abdomen: Soft, Non tender - Derm Derm: Normal color, Warm and dry - Extremities Extremities: No edema, No calf tenderness / cord, Other (left ankle brace due to dropped foot. ) - Neuro Neuro: Alert and oriented X 3, No motor deficit, Normal speech Results - Vitals Vitals: Vital Signs - 24 hr 11/24/22 11/24/22 11/24/22 06:35 07:09 07:30 Temperature 36.8 C Heart Rate 130 H 127 H 117 H Respiratory 33 H 23 22 Rate Blood Pressure 143/116 H 134/115 H 142/107 H O2 Saturation 96 95 94 If not protocol : Oxygen Flow, liters/minute 11/24/22 11/24/22 11/24/22 07:32 08:00 08:30 Temperature Heart Rate 118 H 130 H 133 H Respiratory 22 30 H 25 H Rate Blood Pressure 112/96 H 120/103 H O2 Saturation 94 92 If not protocol : Oxygen Flow, liters/minute 11/24/22 11/24/22 11/24/22 09:13 09:15 09:18 Temperature Heart Rate 128 H 122 H 129 H Respiratory 19 22 21 Rate Blood Pressure 147/83 H 127/107 H O2 Saturation 91 L 100 If not protocol : Oxygen Flow, liters/minute 11/24/22 11/24/22 11/24/22 09:47 10:42 11:00 Temperature Heart Rate 120 H 120 H 122 H Respiratory 28 H 25 H 21 Rate Blood Pressure 145/102 H 139/82 H 130/82 H O2 Saturation 89 L 92 95 If not protocol 2 2 : Oxygen Flow, liters/minute 11/24/22 11/24/22 11/24/22 11:16 11:45 12:00 Temperature 36.2 C L 36.5 C Heart Rate 115 H 115 H 116 H Respiratory 26 H 17 24 Rate Blood Pressure 147/109 H 154/127 H 160/100 H O2 Saturation 95 94 95 If not protocol 2 2 : Oxygen Flow, liters/minute 11/24/22 12:30 Temperature Heart Rate 120 H Respiratory 24 Rate Blood Pressure 168/100 H O2 Saturation 96 If not protocol 2 : Oxygen Flow, liters/minute Oxygen O2 Source Nasal cannula - EKG (time done) 06:42 EKG releavant findings:: EKG personally interpreted by author of this note. Relevant findings are: Rate: Rate (enter#) (131) Rhythm: Atrial fibrillation [place]: Normal QRS: Normal Ischemia: Normal ST segments. No: ST elevation c/w ischemia, ST depression Compare to prior EKG: Unchanged from prior EKG (08/22/22) - Labs Labs: Laboratory Tests 11/24/22 11/24/22 11/24/22 06:55 06:55 06:56 WBC 6.2 RBC 4.31 Hgb 13.7 Hct 41.4 MCV 96.1 MCH 31.8 H MCHC 33.1 RDW 14.9 Plt Count 214 MPV 10.8 Neut # (Auto) 4.6 Lymph # (Auto) 0.7 L [place] # (Auto) 0.6 Eos # (Auto) 0.2 Baso # (Auto) 0.1 Absolute Nucleated RBC 0.00 Nucleated RBC % 0.0 Sodium 136 Potassium 4.7 H Chloride 102 Carbon Dioxide 28 Anion Gap 6.0 BUN 9 Creatinine 0.7 Estimated GFR (MDRD) 80 L Glucose 103 Calcium 9.6 Magnesium Total Bilirubin 0.9 AST 33 ALT 17 Alkaline Phosphatase 71 Troponin I High Sens 273.1 H* B-Natriuretic Peptide Total Protein 6.7 Albumin 4.1 Globulin 2.6 Albumin/Globulin Ratio 1.6 Lipase 12 Nasal Adenovirus (PCR) Nasal B. parapertussis DNA (PCR) Nasal Coronavir 229E PCR Nasal Coronavir HKU1 PCR Nasal Coronavir NL63 PCR Nasal Coronavir OC43 PCR Nasal Enterovir/Rhinovir PCR Nasal Influenza B PCR Nasal Influenza A PCR Nasal Parainfluen 1 PCR Nasal Parainfluen 2 PCR Nasal Parainfluen 3 PCR Nasal Parainfluen 4 PCR Nasal RSV (PCR) Nasal B.pertussis DNA PCR Nasal C.pneumoniae (PCR) Leah Human Metapneumo PCR Nasal M.pneumoniae (PCR) Nasal SARS-CoV-2 (PCR) 11/24/22 11/24/22 11/24/22 06:56 06:56 07:11 WBC RBC Hgb Hct MCV MCH MCHC RDW Plt Count MPV Neut # (Auto) Lymph # (Auto) [place] # (Auto) Eos # (Auto) Baso # (Auto) Absolute Nucleated RBC Nucleated RBC % Sodium Potassium Chloride Carbon Dioxide Anion Gap BUN Creatinine Estimated GFR (MDRD) Glucose Calcium Magnesium 1.9 Total Bilirubin AST ALT Alkaline Phosphatase Troponin I High Sens B-Natriuretic Peptide 454 H Total Protein Albumin Globulin Albumin/Globulin Ratio Lipase Nasal Adenovirus (PCR) NOT DETECTED Nasal B. parapertussis DNA (PCR) NOT DETECTED Nasal Coronavir 229E PCR NOT DETECTED Nasal Coronavir HKU1 PCR NOT DETECTED Nasal Coronavir NL63 PCR NOT DETECTED Nasal Coronavir OC43 PCR NOT DETECTED Nasal Enterovir/Rhinovir PCR NOT DETECTED Nasal Influenza B PCR NOT DETECTED Nasal Influenza A PCR NOT DETECTED Nasal Parainfluen 1 PCR NOT DETECTED Nasal Parainfluen 2 PCR NOT DETECTED Nasal Parainfluen 3 PCR NOT DETECTED Nasal Parainfluen 4 PCR NOT DETECTED Nasal RSV (PCR) NOT DETECTED Nasal B.pertussis DNA PCR NOT DETECTED Nasal C.pneumoniae (PCR) NOT DETECTED Leah Human Metapneumo PCR NOT DETECTED Nasal M.pneumoniae (PCR) NOT DETECTED Nasal SARS-CoV-2 (PCR) NOT DETECTED 11/24/22 11/24/22 08:16 09:56 WBC RBC Hgb Hct MCV MCH MCHC RDW Plt Count MPV Neut # (Auto) Lymph # (Auto) [place] # (Auto) Eos # (Auto) Baso # (Auto) Absolute Nucleated RBC Nucleated RBC % Sodium Potassium Chloride Carbon Dioxide Anion Gap BUN Creatinine Estimated GFR (MDRD) Glucose Calcium Magnesium Total Bilirubin AST ALT Alkaline Phosphatase Troponin I High Sens 271.2 H* 193.9 H* B-Natriuretic Peptide Total Protein Albumin Globulin Albumin/Globulin Ratio Lipase Nasal Adenovirus (PCR) Nasal B. parapertussis DNA (PCR) Nasal Coronavir 229E PCR Nasal Coronavir HKU1 PCR Nasal Coronavir NL63 PCR Nasal Coronavir OC43 PCR Nasal Enterovir/Rhinovir PCR Nasal Influenza B PCR Nasal Influenza A PCR Nasal Parainfluen 1 PCR Nasal Parainfluen 2 PCR Nasal Parainfluen 3 PCR Nasal Parainfluen 4 PCR Nasal RSV (PCR) Nasal B.pertussis DNA PCR Nasal C.pneumoniae (PCR) Leah Human Metapneumo PCR Nasal M.pneumoniae (PCR) Nasal SARS-CoV-2 (PCR) - Rads (name of study) chest xray Relevant Findings:: Prelim report reviewed, EMP independent interpretation of test (right mid lung consolidation c/w pneumonia vs atelectasis. ) PD Medical Decision Making - ED course Complexity details: reviewed results (Troponin is elevated with a repeat at 1 hour being similar. BNP is slightly elevated at 484. Chest x-ray does not look like congestive failure. There is an infiltrate consistent with pneumonia. I think her elevated troponin is myocardial ischemia from workload in the setting of a prior cardiomyo), re-evaluated patient (she persists with dyspnea and some wheezing, but improved after the nebs. However her sats actually decrease and are at times down to 88-90% on RA. Given nasal cannula by nursing. Will discuss with hospitalist. ), considered differential (Description would be more of a progressive asthma flareup now worse with wheezing. She denies fever or productive cough. However no URI symptoms in general. She denies orthopnea and does not have any crackles. She does have wheezes. There is no leg edema. I do not believe this is CHF/DE.), d/w patient Departure - Departure Disposition: [facility] DC/Xfer Clinical Impression: Dyspnea, Hypoxia, Elevated troponin, Cardiomyopathy, Asthma exacerbation, Pneumonia Discharge Date/Time: 11/24/22 13:12
[2022-11-24] MEDS ORDERED: LEVALBUTEROL 1.25 MG/3 ML NEB INH ONE (07:12)
[2022-11-24 07:27] LABS: ALBUMIN 4.1 g/dL (3.2-5.5)
[2022-11-24 07:28] LABS: ALBUMIN/GLOBULIN RATIO 1.6 (1.0-2.2); BILIRUBIN,TOTAL 0.9 mg/dL (0.2-1.0); CALCIUM 9.6 mg/dL (8.5-10.3); CREATININE 0.7 mg/dL (0.6-1.3); POTASSIUM 4.7 mmol/L (3.5-4.5); TOTAL PROTEIN 6.7 g/dL (6.4-8.9)
[2022-11-24] MEDS ORDERED: cefTRIAXone 1 GM VIAL IVP STA (07:34)
[2022-11-24] MEDS ORDERED: AZITHROMYCIN 250 MG TABLET PO STA (07:34)
--- NOTE | 2022-11-24 08:14 | XRAY Report ---
PROCEDURE: Chest 1 View X-Ray INDICATIONS: JANINE TECHNIQUE: One view of the chest was acquired. COMPARISON: None. FINDINGS: Surgical changes and devices: None. Lungs and pleura: No pleural effusions or pneumothorax. Linear radiopacities are present in the righ t perihilar region. Mediastinum: Mediastinal contours appear normal. Heart size is enlarged, as before. Bones and chest wall: No suspicious bony lesions. Overlying soft tissues appear unremarkable. IMPRESSION: 1. Cardiomegaly. 2. Right perihilar linear radiopacities. Differential considerations include atelectasis, aspiration, and infection. Findings are concordant with the overnight interpretation. Reviewed by: Aye Jones MD on 11/24/2022 8:13 AM PDT Approved by: Aye Jones MD on 11/24/2022 8:13 AM PDT Station ID: [id number]
[2022-11-24 08:16] LABS: B. PARAPERTUSSIS- RESP PCR PAN NOT DETECTED; B. PERTUSSIS- RESP PCR PANEL NOT DETECTED; C. PNEUMONIAE- RESP PCR PANEL NOT DETECTED; CORONAVIRUS 229E-RESP PCR NOT DETECTED; CORONAVIRUS HKU1-RESP PCR NOT DETECTED; CORONAVIRUS NL63-RESP PCR NOT DETECTED; CORONAVIRUS OC43-RESP PCR NOT DETECTED; HUMAN METAPNEUMOVIRUS NOT DETECTED; INFLUENZA A- RESP PCR PANEL NOT DETECTED; INFLUENZA B - RESP PCR PANEL NOT DETECTED; M. PNEUMONIAE- RESP PCR PANEL NOT DETECTED; PARAINFLUENZA VIRUS 1 NOT DETECTED; PARAINFLUENZA VIRUS 2 NOT DETECTED; PARAINFLUENZA VIRUS 3 NOT DETECTED; PARAINFLUENZA VIRUS 4 NOT DETECTED; RHINOVIRUS/ENTEROVIRUS NOT DETECTED; RSV- RESP PCR PANEL NOT DETECTED; SARS-CoV-2 -RESP PCR PANEL NOT DETECTED
[2022-11-24] MEDS ORDERED: ALBUTEROL NEB 2.5 MG/3 ML INH STA (08:57)
[2022-11-24] MEDS ORDERED: METOPROLOL 5 MG/5 ML VIAL IVP STA ×2 (08:58→10:56)
[2022-11-24] MEDS ORDERED: ONDANSETRON 4 MG/2 ML VIAL IVP PRN (12:40)
[2022-11-24] MEDS ORDERED: LEVALBUTEROL 1.25 MG/3 ML NEB INH PRN (12:48)
[2022-11-24] MEDS ORDERED: NON FORMULARY MED (Hydroxyzine Hcl [Hydroxyzine Hcl] 25 MG Tablet) PO PRN (12:49)
[2022-11-24] MEDS ORDERED: LORazepam 1 MG TABLET PO PRN (12:49)
[2022-11-24] MEDS ORDERED: diltiaZEM INJ 125 MG in DEXTROSE 5% 100 ML IV SCH (13:00)
[2022-11-24] MEDS: LEVALBUTEROL 1.25 MG/3 ML NEB INH SCH ×2 (13:21→15:39)
[2022-11-24] MEDS: diltiaZEM INJ 125 MG in SODIUM CHLORIDE 0.9% 100ML 100 ML IV SCH ×2 (13:24→22:04)
--- NOTE | 2022-11-24 13:55 | PHARMACY PROGRESS NOTE ---
- Best Possible Medication History Admit Date and Time: 11/24/22 1240 Processed by: Pharmacy Medication History completed: Yes Patient Interview: Completed Secondary Source(s): Written medication list, Insurance records As the person ultimately responsible for medication therapy, providers are able to order a medication from an existing home medication list in [facility] via the "Reconcile Routine" prior to Confirmation of that medication by aviation support equipment repairer. Such practice is discouraged except when the physician, in their clinical judgment, deems that a medical need exists for a medication without regard to previous use.
[2022-11-24] MEDS: methylPREDNISolone SUCCINATE 40 MG/ML VIAL IVP SCH ×2 (14:06→22:04)
--- NOTE | 2022-11-24 14:42 | HISTORY & PHYSICAL EXAMINATION ---
Chief Complaint - Chief Complaint Chief Complaint: SOA History of Present Illness - Admitted From Admitted From:: ED - History Obtained From History obtained from: ED provider and the pt - History of Present Illness HPI Comment/Other: This is an 82-year-old female who lives with her of 62 years. She has a history of asthma but is not on home oxygen. She has a history of chronic A-fib and has a Watchman device implanted about a year and a half ago. There is a history of cardiomyopathy with echo done February 2022 showing EF of 37%. Over the past 3 weeks she has developed shortness of breath, which was markedly worse yesterday and today. She presented to the ER today because of SOA and was found to have tachypnea RR 28, O2 desaturation of 89% on room air, and had wheezing. She was given 3 nebulizer treatments and Solumedrol iv without signif icant benefit. Her chest x-ray was read as having a right middle lobe infiltrate. BNP elevated at 450 and troponin elevated at 271 then subsequent troponins trended down. She did not describe any chest pain. In addition, she presented in A-fib with RVR with heart rate of 120-130. She was given a dose of beta-nathaly IV x1 and had no significant change. The ED provider then spoke to me about this patient. She will be admitted to the ICU for a Cardizem drip to treat the A-fib with RVR and to treat her asthma exacerbation from a CAP. I discussed her CODE EDISON wishes and she wants to be a DNR/DNI. Moments before that her RN asked her about her CODE BLUE wishes and she says she wants everyth ing done. By default I will leave her as a full code until I confirm with family or a POLST form that she wants to be DNR. 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 Mother at age 82 from heart attack. 1 brother of some type of cancer. 1 sister alive and healthy. 4 children. 1 with HTN, 1 with HPL, 1 of ovarian ca age 34 Living Situation: With spouse/s.o., With family Social History Notes: Has been moved to [facility] decades ago. Built her own home and have [place] of [place]. She never smoked. She rarely drank. She has no history of recreational substance abuse. They still live on their own property. They have sold the main house to her younger son and the younger son with his family maintains the property. They live in a cottage down below the house. [place] - Substance History Use: Uses substance without health or social issues: NONE - POLST Patient has POLST: No POLST Status: Full Code Meds/Allgy - Home Medications Home Medications: Ambulatory Orders Medication Instructions Recorded Confirmed Atorvastatin [Lipitor] 20 mg PO DAILY 06/22/17 11/24/22 Multivitamin [Multiple Vitamins] 1 each PO DAILY 06/22/17 11/24/22 Ubidecarenone [Co Q-10] 100 mg PO DAILY 06/22/17 11/24/22 Cholecalciferol (Vitamin D3) 50 mcg PO DAILY 08/10/20 11/24/22 [Vitamin D3] Fluticasone Propion/Salmeterol 2 inh PO BID 08/10/20 11/24/22 [Wixela 100-50 Inhub] Calcium Carbonate [Calcium] 600 mg PO DAILY 07/10/21 11/24/22 Meloxicam [Mobic] 15 mg PO DAILY PRN 07/10/21 11/24/22 Metoprolol Succinate [Toprol Xl] 75 mg PO BID 07/11/21 11/24/22 Aspirin [Aspirin EC] 81 mg PO DAILY 11/24/22 11/24/22 Docusate Sodium 250Mg Capsule 250 mg PO DAILY 11/24/22 11/24/22 [Colace 250Mg Capsule] Montelukast Sodium 10 mg PO HS 11/24/22 11/24/22 Oxymetazoline HCl [Afrin] 2 sprays LEAH Q12H 11/24/22 11/24/22 - Allergies Allergies/Adverse Reactions: Allergies Allergy/AdvReac Type Severity Reaction Status Date / Time meloxicam Allergy Rash Verified 11/24/22 06:47 Review of Systems - Respiratory Respiratory: reports: Orthopnea, SOB at rest, SOB with exertion - All Other Systems All Other Systems: reports: Reviewed and negative Exam - Vital Signs Vital Signs: Vital Signs x48h Temp Pulse Pulse Resp BP BP Pulse Ox 11/24/22 14:00 115 H 24 128/97 H 95 11/24/22 13:31 11/24/22 13:24 130/109 H 11/24/22 13:22 37.1 C 118 H 24 130/109 H 11/24/22 12:30 120 H 24 168/100 H 96 11/24/22 12:00 36.5 C 116 H 24 160/100 H 95 11/24/22 11:45 36.2 C L 115 H 17 154/127 H 94 11/24/22 11:16 115 H 26 H 147/109 H 95 11/24/22 11:00 122 H 21 130/82 H 95 11/24/22 10:42 120 H 25 H 139/82 H 92 11/24/22 09:47 120 H 28 H 145/102 H 89 L 11/24/22 09:18 129 H 21 127/107 H 100 11/24/22 09:15 122 H 22 11/24/22 09:13 128 H 19 147/83 H 91 L 11/24/22 08:30 133 H 25 H 120/103 H 92 11/24/22 08:00 130 H 30 H 112/96 H 94 11/24/22 07:32 118 H 22 11/24/22 07:30 117 H 22 142/107 H 94 11/24/22 07:09 127 H 23 134/115 H 95 O2 Flow Rate 11/24/22 14:00 2 11/24/22 13:31 2 11/24/22 13:24 11/24/22 13:22 2 11/24/22 12:30 2 11/24/22 12:00 2 11/24/22 11:45 11/24/22 11:16 2 11/24/22 11:00 2 11/24/22 10:42 2 11/24/22 09:47 11/24/22 09:18 11/24/22 09:15 11/24/22 09:13 11/24/22 08:30 11/24/22 08:00 11/24/22 07:32 11/24/22 07:30 11/24/22 07:09 - Physical Exam General Appearance: positive: Mild distress (resp rate high) Eyes Bilateral: positive: Normal inspection, EOMI ENT: positive: ENT inspection nml, No signs of dehydration Neck: positive: Nml inspection, No JVD Respiratory: positive: Wheezes (Scattered wheezes, prolonged expiratory phase, no rales) Cardiovascular: positive: No murmur, Tachycardia Abdomen: positive: Non-tender, Nml bowel sounds, No distention Skin: positive: Warm, Dry Extremities: positive: Non-tender, Other (2+ edema to below the knees) Neurologic/Psychiatric: positive: Oriented x3, Motor nml Conclusion/Plan - Problem List (1) Atrial fibrillation with RVR Conclusion/Plan: The pneumonia and asthmatic flareup with respiratory distress have probably added to the tachycardia. Plan: Admit to the ICU Start diltiazem drip and titrate to get heart rate under 100 Await her reconciled med list to start usual cardiac meds, if any. She reported that she has a Watchman device therefore I expect she is not on anticoagulants now (2) Asthma exacerbation Conclusion/Plan: This was probably brought on by the pneumonia seen on chest x-ray. She was wheezing and did not improve even after 3 nebulized bronchodilator treatments and Solu-Medrol in the ER Plan: Continue with scheduled bronchodilators and as needed every 4 hours Start Pulmicort twice daily Continue with her montelukast at night Continue IV steroids 40 mg Solu-Medrol 3 times daily (3) CAP (community acquired pneumonia) Conclusion/Plan: She denies a significant cough, but she has an infiltrate on CXR Plan: We will order sputum for culture if she makes sputum We will continue empiric IV antibiotics using ceftriaxone and Zithromax (4) CHF exacerbation Conclusion/Plan: She has a moderately elevated BNP of 450, there is no old BNP for comparison. She also has a known cardiomyopathy with EF of 37% by echo from 9 months ago. The elevated troponins could be a type II ND from the stress of the pneumonia and asthma flare and high heart rate Plan: Obtain echo to recheck her LVEF Await her reconciled med list to start her usual cardiac meds I will not start Lasix yet, unless the echo confirms continued systolic heart failure - Lab Results Fish Bones: 11/25/22 04:58 11/25/22 04:58 - Diagnostic Imaging Results Diagnostic Imaging Results: positive: Final report reviewed - Other Other Results/Comments: Attestation: The patient is expected to be hospitalized for greater than 2 midnights, and is expected to be discharged or transferred to another facility within 96 hours: Yes.
[2022-11-24] MEDS: OXYMETAZOLINE HCL 100 SPRAYS BOTTLE NAS PRN (17:47)
[2022-11-24] MEDS: SODIUM CHLORIDE FLUSH 0.9% 10 ML SYRINGE IVP SCH (17:50)
[2022-11-24] MEDS: COD LIVER OIL/ZINC OXIDE 113 GM TUBE TOP SCH ×2 (18:19→21:08)
[2022-11-24] MEDS ORDERED: COD LIVER OIL/ZINC OXIDE 113 GM TUBE TOP ONE (18:21)
[2022-11-24] MEDS: MONTELUKAST 10 MG TABLET PO SCH (21:06)
[2022-11-24] MEDS: METOPROLOL SUCCINATE 50 MG TABLET PO SCH (21:07)
[2022-11-24] MEDS: ATORVASTATIN 10 MG TABLET PO SCH (21:07)
[2022-11-24] MEDS: APIXABAN 2.5 MG TABLET PO SCH (21:07)
[2022-11-24] MEDS: FAMOTIDINE 20 MG TABLET PO SCH (21:07)
[2022-11-25] MEDS: SODIUM CHLORIDE FLUSH 0.9% 10 ML SYRINGE IVP SCH ×3 (01:02→16:55)
[2022-11-25] MEDS: OXYMETAZOLINE HCL 100 SPRAYS BOTTLE NAS PRN (05:11)
[2022-11-25 05:19] LABS: BASOPHILS % (AUTO) 0.2 %; HCT - HEMATOCRIT 39.8 % (37.0-47.0); HGB - HEMOGLOBIN 12.9 g/dL (12.0-16.0); LYMPHOCYTES # (AUTO) 0.4 10^3/uL (1.5-3.5); LYMPHOCYTES % (AUTO) 5.4 %; MEAN CORPUSCULAR HEMOGLOBIN 31.2 pg (27.0-31.0); MEAN CORPUSCULAR HGB CONC 32.4 g/dL (32.0-36.0); MEAN CORPUSCULAR VOLUME 96.4 fL (81.0-99.0); MEAN PLATELET VOLUME 10.7 fL (7.9-10.8); MONOCYTES # (AUTO) 0.1 10^3/uL (0.0-1.0); MONOCYTES % (AUTO) 1.5 %; NEUTROPHILS % (AUTO) 92.3 %; PLT - PLATELET COUNT 213 10^3/uL (130-450); RED BLOOD COUNT 4.13 10^6/uL (4.20-5.40); RED CELL DISTRIBUTION WIDTH 15.1 % (12.0-15.0); WHITE BLOOD COUNT 6.5 x10^3/uL (4.8-10.8)
[2022-11-25 05:22] LABS: CALCIUM, IONIZED 1.18 mmol/L (1.15-1.33); VBG PH 7.406 (7.31-7.41)
[2022-11-25] MEDS: SODIUM CHLORIDE FLUSH 0.9% 10 ML SYRINGE IVP PRN ×2 (05:31→19:53)
[2022-11-25] MEDS: methylPREDNISolone SUCCINATE 40 MG/ML VIAL IVP SCH ×3 (05:31→22:21)
[2022-11-25 05:36] LABS: CALCIUM 9.5 mg/dL (8.5-10.3); CREATININE 0.6 mg/dL (0.6-1.3); PHOSPHORUS 4.2 mg/dL (2.5-5.0); POTASSIUM 4.4 mmol/L (3.5-4.5)
[2022-11-25] MEDS: BUDESONIDE 0.5 MG/2 ML NEB INH SCH ×3 (07:04→20:20)
[2022-11-25] MEDS: LEVALBUTEROL 1.25 MG/3 ML NEB INH SCH ×5 (07:05→20:20)
[2022-11-25] MEDS: APIXABAN 2.5 MG TABLET PO SCH ×2 (07:43→21:13)
[2022-11-25] MEDS: METOPROLOL SUCCINATE 50 MG TABLET PO SCH ×2 (07:43→21:13)
[2022-11-25] MEDS: FAMOTIDINE 20 MG TABLET PO SCH ×2 (07:45→21:13)
[2022-11-25] MEDS: ASPIRIN EC 81 MG TABLET PO SCH (08:32)
[2022-11-25] MEDS: CALCIUM CARBONATE CHEW 500 MG TABLET PO SCH (08:33)
[2022-11-25] MEDS: DOCUSATE SODIUM 250 MG CAPSULE PO SCH (08:33)
[2022-11-25] MEDS ORDERED: METOPROLOL SUCCINATE 25 MG TABLET PO STA (08:57)
[2022-11-25] MEDS ORDERED: ENOXAPARIN 40 MG/0.4 ML SYRINGE SUBQ SCH (09:00)
[2022-11-25] MEDS: cefTRIAXone 1 GM in SODIUM CHLORIDE 0.9% MINIBAG 100 ML IV SCH (10:31)
[2022-11-25] MEDS ORDERED: AZITHROMYCIN INJ 500 MG in SODIUM CHLORIDE 0.9% 250 ML IV SCH (11:00)
[2022-11-25] MEDS ORDERED: MORPHINE 2 MG/ML CARPUJECT IVP ONE (13:04)
[2022-11-25] MEDS ORDERED: MORPHINE 2 MG/ML CARPUJECT ONE (13:12)
[2022-11-25] MEDS ORDERED: DIGOXIN 500 MCG/2 ML AMP IVP STA (16:42)
--- NOTE | 2022-11-25 17:01 | PROVIDER PROGRESS NOTE ---
Subjective - Subjective Pt reports feeling: No change (Heart rate was better this morning, back up to tachycardic in the afternoon. She is more short of breath also in the afternoon) Objective - Vital Signs/Intake & Output Vital Signs: Vital Signs Temp Pulse Pulse Resp BP Pulse Ox 11/25/22 16:00 36.8 C 109 H 22 125/86 H 94 11/25/22 15:12 112 H 22 11/25/22 15:00 143 H 27 H 111/90 H 97 11/25/22 14:00 116 H 18 115/78 93 11/25/22 13:00 144 H 28 H 114/92 H 96 Intake & Output: Intake & Output 11/22/22 11/23/22 11/24/22 11/25/22 23:59 23:59 23:59 23:59 Intake Total 609.278 0736 Output Total 100 350 Balance 950.047 8924 - Objective General Appearance: positive: Moderate distress (resp disrress) Eyes Bilateral: positive: Normal inspection, EOMI ENT: positive: ENT inspection nml, No signs of dehydration Neck: positive: Nml inspection, No JVD Respiratory: positive: Rales Cardiovascular: positive: Tachycardia Abdomen: positive: Non-tender, No distention Skin: positive: Warm, Dry Extremities: positive: Non-tender, Other (1-2+ edema to mid shins) Neurologic/Psychiatric: positive: Motor nml, Disoriented to person, Disoriented to place, Disoriented to time, Other (Poor memory and intermittently disoriented) - Lab Results Fish Bones: 11/25/22 04:58 11/25/22 04:58 Other Labs: Lab Results x24hrs 11/25/22 11/25/22 11/25/22 Range/Units 04:58 04:58 04:58 WBC (4.8-10.8) x10^3/uL RBC (4.20-5.40) 10^6/uL Hgb (12.0-16.0) g/dL Hct (37.0-47.0) % MCV (81.0-99.0) fL MCH (27.0-31.0) pg MCHC (32.0-36.0) g/dL RDW (12.0-15.0) % Plt Count (130-450) 10^3/uL MPV (7.9-10.8) fL Neut # (Auto) (1.5-6.6) 10^3/uL Lymph # (Auto) (1.5-3.5) 10^3/uL [place] # (Auto) (0.0-1.0) 10^3/uL Eos # (Auto) (0.0-0.7) 10^3/uL Baso # (Auto) (0.0-0.1) 10^3/uL Absolute Nucleated RBC x10^3/uL Nucleated RBC % /100WBC VBG pH 7.406 (7.31-7.41) Ionized Calcium 1.18 (1.15-1.33) mmol/L Sodium 136 (135-145) mmol/L Potassium 4.4 (3.5-4.5) mmol/L Chloride 102 (101-111) mmol/L Carbon Dioxide 28 (21-32) mmol/L Anion Gap 6.0 (6-13) BUN 20 (6-20) mg/dL Creatinine 0.6 (0.6-1.3) mg/dL Estimated GFR (MDRD) 96 (>89) Glucose 152 H (74-104) mg/dL Calcium 9.5 (8.5-10.3) mg/dL Phosphorus 4.2 (2.5-5.0) mg/dL Magnesium 2.0 (1.7-2.3) mg/dL B-Natriuretic Peptide 334 H (5-100) pg/mL 11/25/22 Range/Units 04:58 WBC 6.5 (4.8-10.8) x10^3/uL RBC 4.13 L (4.20-5.40) 10^6/uL Hgb 12.9 (12.0-16.0) g/dL Hct 39.8 (37.0-47.0) % MCV 96.4 (81.0-99.0) fL MCH 31.2 H (27.0-31.0) pg MCHC 32.4 (32.0-36.0) g/dL RDW 15.1 H (12.0-15.0) % Plt Count 213 (130-450) 10^3/uL MPV 10.7 (7.9-10.8) fL Neut # (Auto) 6.0 (1.5-6.6) 10^3/uL Lymph # (Auto) 0.4 L (1.5-3.5) 10^3/uL [place] # (Auto) 0.1 (0.0-1.0) 10^3/uL Eos # (Auto) 0.0 (0.0-0.7) 10^3/uL Baso # (Auto) 0.0 (0.0-0.1) 10^3/uL Absolute Nucleated RBC 0.00 x10^3/uL Nucleated RBC % 0.0 /100WBC VBG pH (7.31-7.41) Ionized Calcium (1.15-1.33) mmol/L Sodium (135-145) mmol/L Potassium (3.5-4.5) mmol/L Chloride (101-111) mmol/L Carbon Dioxide (21-32) mmol/L Anion Gap (6-13) BUN (6-20) mg/dL Creatinine (0.6-1.3) mg/dL Estimated GFR (MDRD) (>89) Glucose (74-104) mg/dL Calcium (8.5-10.3) mg/dL Phosphorus (2.5-5.0) mg/dL Magnesium (1.7-2.3) mg/dL B-Natriuretic Peptide (5-100) pg/mL Assessment/Plan - Problem List (1) Atrial fibrillation with RVR Impression: The pneumonia and asthmatic flareup with respiratory distress have probably added to the tachycardia. The diltiazem drip did control her heart rate to 90- 100. After that she was more awake and more active, and in more resp distress, and heart rate has risen as high as 130-150 briefly, even on the Dilt drip. Plan: Remain in ICU on telemetry Cont diltiazem drip Her reconciled med list says Toprol-XL 75 twice daily, I will increase that to 100 twice daily starting this morning She reported that she has a Watchman device therefore no anticoagulants ordered We will order Echo Check her TSH to rule out hyperthyroidism (2) Asthma exacerbation Conclusion/Plan: This was probably brought on by the pneumonia seen on chest x-ray. She was wheezing and did not improve even after 3 nebulized bronchodilator treatments and Solu-Medrol in the ER Plan: Continue with scheduled bronchodilators and as needed every 4 hours Cont Pulmicort twice daily Continue with her montelukast at night Continue IV steroids 40 mg Solu-Medrol 3 times daily (3) CAP (community acquired pneumonia) Conclusion/Plan: She denies a significant cough, but she has an infiltrate on CXR Plan: Awaiting sputum for culture if she makes sputum ontinue empiric IV antibiotics using ceftriaxone and Zithromax (4) CHF exacerbation Conclusion/Plan: She has a moderately elevated BNP of 450, there is no old BNP for comparison. She also has a known cardiomyopathy with EF of 37% by echo from 9 months ago. The elevated troponins could be a type II MD from the stress of the pneumonia and asthma flare and high heart rate. BNP has gone down today without receiving Lasix (all labs were reviewed). Plan: Obtain Echo to recheck her LVEF Await her reconciled med list to start her usual cardiac meds Will recheck CXR, given the worsening resp distress today. I suspect she needs iv Lasix (5) Confusion Conclusion/Plan: Yesterday the patient was alert and oriented and providing good details, appear ed to have a good memory. Today when I ask her questions she answers about a completely different topic. When the nurse asked her a question she responded that "pads are in the cupboard and the pies and the oven". However she was able to tell me that her is not home today, he is going with their daughter to the airport to picking table worker their son. I called the [employer] on the cell phone and confirmed that he is going to the airport. I also asked the if the patient has confusion or poor memory. He says she has been declining lately. This EMR says that she has "cognitive deficits". The nurse was told that she slept poorly last night, possibly it is from sleep deprivation Since her confusion is up-and-down today, I suspect it may be caused by distress, sleep deprivation, possibly by hypoxia, or possibly ICU psychosis in an elderly pt Plan: Lorazepam is ordered as needed which we will continue I will also give morphine for respiratory distress which may help her get needed rest
[2022-11-25] MEDS: COD LIVER OIL/ZINC OXIDE 113 GM TUBE TOP SCH ×2 (17:16→21:13)
--- NOTE | 2022-11-25 17:27 | XRAY Report ---
PROCEDURE: Chest 1 View X-Ray INDICATIONS: Worse SOB, eval for CHF TECHNIQUE: One view of the chest was acquired. COMPARISON: CXR 11/24/2022, 08/22/2022.. FINDINGS: Surgical changes and devices: None. Lungs and pleura: No pleural effusions or pneumothorax. No consolidation. Minimally prominent pulmon jhonny markings, improved compared to yesterday morning. Mediastinum: Mediastinal contours appear unchanged. Heart size is enlarged, unchanged. Bones and chest wall: No suspicious bony lesions. Overlying soft tissues appear unremarkable. IMPRESSION: Suspect mild vasculature engorgement improved compared to yesterday morning. Cardiomegaly. Reviewed by: Rusty Rutherford MD on 11/25/2022 5:26 PM PDT Approved by: Rusty Rutherford MD on 11/25/2022 5:26 PM PDT Station ID: [id number]
[2022-11-25] MEDS ORDERED: FUROSEMIDE 20 MG/2 ML VIAL IVP STA (17:39)
[2022-11-25] MEDS: MONTELUKAST 10 MG TABLET PO SCH (21:14)
[2022-11-25] MEDS: ATORVASTATIN 10 MG TABLET PO SCH (21:14)
[2022-11-26 04:29] LABS: VBG PH 7.448 (7.31-7.41)
[2022-11-26 04:30] LABS: CALCIUM, IONIZED 1.13 mmol/L (1.15-1.33)
[2022-11-26 04:32] LABS: HCT - HEMATOCRIT 39.3 % (37.0-47.0); HGB - HEMOGLOBIN 12.9 g/dL (12.0-16.0); LYMPHOCYTES # (AUTO) 0.3 10^3/uL (1.5-3.5); LYMPHOCYTES % (AUTO) 2.7 %; MEAN CORPUSCULAR HEMOGLOBIN 31.9 pg (27.0-31.0); MEAN CORPUSCULAR HGB CONC 32.8 g/dL (32.0-36.0); MEAN CORPUSCULAR VOLUME 97.3 fL (81.0-99.0); MEAN PLATELET VOLUME 10.5 fL (7.9-10.8); MONOCYTES # (AUTO) 0.4 10^3/uL (0.0-1.0); MONOCYTES % (AUTO) 3.5 %; NEUTROPHILS # (AUTO) 9.6 10^3/uL (1.5-6.6); NEUTROPHILS % (AUTO) 93.4 %; PLT - PLATELET COUNT 222 10^3/uL (130-450); RED BLOOD COUNT 4.04 10^6/uL (4.20-5.40); RED CELL DISTRIBUTION WIDTH 15.2 % (12.0-15.0); WHITE BLOOD COUNT 10.3 x10^3/uL (4.8-10.8)
[2022-11-26 04:43] LABS: CALCIUM 9.5 mg/dL (8.5-10.3); CREATININE 0.7 mg/dL (0.6-1.3); PHOSPHORUS 3.3 mg/dL (2.5-5.0); POTASSIUM 4.3 mmol/L (3.5-4.5)
[2022-11-26] MEDS: SODIUM CHLORIDE FLUSH 0.9% 10 ML SYRINGE IVP SCH ×3 (05:15→16:28)
[2022-11-26] MEDS: methylPREDNISolone SUCCINATE 40 MG/ML VIAL IVP SCH ×2 (05:41→17:34)
[2022-11-26] MEDS: BUDESONIDE 0.5 MG/2 ML NEB INH SCH ×2 (06:58→20:00)
[2022-11-26] MEDS: LEVALBUTEROL 1.25 MG/3 ML NEB INH SCH ×4 (06:58→20:00)
--- NOTE | 2022-11-26 08:07 | PROVIDER PROGRESS NOTE ---
Subjective - Subjective Pt reports feeling: Improved (She says she can finally "catch her breath". She does feel palpitations) Objective - Vital Signs/Intake & Output Vital Signs: Vital Signs Temp Pulse Pulse Resp BP Pulse Ox O2 Flow Rate 11/26/22 07:00 75 23 114/81 H 96 2 11/26/22 06:58 72 22 0.5 11/26/22 06:00 76 25 H 121/75 95 2 11/26/22 05:00 77 20 112/82 H 96 2 11/26/22 04:00 36.8 C 80 21 117/84 H 95 2 Intake & Output: Intake & Output 11/23/22 11/24/22 11/25/22 11/26/22 23:59 23:59 23:59 23:59 Intake Total 321.381 2964 300 Output Total 100 1150 400 Balance 484.833 660 -100 - Objective General Appearance: positive: Alert, Mild distress (She is tachypneic when speaking) Eyes Bilateral: positive: Normal inspection ENT: positive: ENT inspection nml, No signs of dehydration Neck: positive: Nml inspection, No JVD Respiratory: positive: Wheezes, Rhonchi Cardiovascular: positive: No murmur, Irregularly irregular, Tachycardia Abdomen: positive: Non-tender, No distention Skin: positive: Warm, Dry Extremities: positive: Non-tender, No pedal edema Neurologic/Psychiatric: positive: Oriented x3, Other (Intermittently confused, speaking off topic then returns back to the subject, seems to have a good memory) - Lab Results Fish Bones: 11/28/22 04:36 11/29/22 04:19 Other Labs: Lab Results x24hrs 11/26/22 11/26/22 11/26/22 Range/Units 04:20 04:20 04:20 WBC 10.3 (4.8-10.8) x10^3/uL RBC 4.04 L (4.20-5.40) 10^6/uL Hgb 12.9 (12.0-16.0) g/dL Hct 39.3 (37.0-47.0) % MCV 97.3 (81.0-99.0) fL MCH 31.9 H (27.0-31.0) pg MCHC 32.8 (32.0-36.0) g/dL RDW 15.2 H (12.0-15.0) % Plt Count 222 (130-450) 10^3/uL MPV 10.5 (7.9-10.8) fL Neut # (Auto) 9.6 H (1.5-6.6) 10^3/uL Lymph # (Auto) 0.3 L (1.5-3.5) 10^3/uL [place] # (Auto) 0.4 (0.0-1.0) 10^3/uL Eos # (Auto) 0.0 (0.0-0.7) 10^3/uL Baso # (Auto) 0.0 (0.0-0.1) 10^3/uL Absolute Nucleated RBC 0.00 x10^3/uL Nucleated RBC % 0.0 /100WBC VBG pH 7.448 H (7.31-7.41) Ionized Calcium 1.13 L (1.15-1.33) mmol/L Sodium (135-145) mmol/L Potassium (3.5-4.5) mmol/L Chloride (101-111) mmol/L Carbon Dioxide (21-32) mmol/L Anion Gap (6-13) BUN (6-20) mg/dL Creatinine (0.6-1.3) mg/dL Estimated GFR (MDRD) (>89) Glucose (74-104) mg/dL Calcium (8.5-10.3) mg/dL Phosphorus (2.5-5.0) mg/dL B-Natriuretic Peptide 491 H (5-100) pg/mL 11/26/22 11/25/22 Range/Units 04:20 04:58 WBC (4.8-10.8) x10^3/uL RBC (4.20-5.40) 10^6/uL Hgb (12.0-16.0) g/dL Hct (37.0-47.0) % MCV (81.0-99.0) fL MCH (27.0-31.0) pg MCHC (32.0-36.0) g/dL RDW (12.0-15.0) % Plt Count (130-450) 10^3/uL MPV (7.9-10.8) fL Neut # (Auto) (1.5-6.6) 10^3/uL Lymph # (Auto) (1.5-3.5) 10^3/uL [place] # (Auto) (0.0-1.0) 10^3/uL Eos # (Auto) (0.0-0.7) 10^3/uL Baso # (Auto) (0.0-0.1) 10^3/uL Absolute Nucleated RBC x10^3/uL Nucleated RBC % /100WBC VBG pH (7.31-7.41) Ionized Calcium (1.15-1.33) mmol/L Sodium 135 (135-145) mmol/L Potassium 4.3 (3.5-4.5) mmol/L Chloride 98 L (101-111) mmol/L Carbon Dioxide 30 (21-32) mmol/L Anion Gap 7.0 (6-13) BUN 25 H (6-20) mg/dL Creatinine 0.7 (0.6-1.3) mg/dL Estimated GFR (MDRD) 80 L (>89) Glucose 160 H (74-104) mg/dL Calcium 9.5 (8.5-10.3) mg/dL Phosphorus 3.3 (2.5-5.0) mg/dL B-Natriuretic Peptide 334 H (5-100) pg/mL Assessment/Plan - Problem List (1) Atrial fibrillation with RVR Impression: The pneumonia and asthmatic flareup with respiratory distress have probably added to the tachycardia. TSH is WNL, ruling out hyperthyroidism The Diltiazem drip did control her heart rate to 90-100. However, when she was more awake and more active yesterday, and in more resp distress, the heart rate andrew again to 130-150 yesterday. So the Dilt drip could not be stopped and I gave a Dig 250 mcg iv push yesterday. This morning her HR is 75 in Afib (all VS were reviewed) Plan: Remain in ICU on telemetry Cont daily po Dig 125 mcg Cont the increased Toprol dose of 100 twice daily, which I increased yesterday Will try to wean the Diltiazem drip to off today. When she is off of IV diltiazem drip, she can be moved out of the ICU She reported that she has a Watchman device but a DOAC is listed on her med list. I will cont her Eliquis, since it may need overlap if the device was recently implanted (2) Asthma exacerbation Conclusion/Plan: This was probably brought on by the pneumonia seen on chest x-ray. She was wheezing and did not improve even after 3 nebulized bronchodilator treatments and Solu-Medrol in the ER Plan: Continue with scheduled bronchodilators and as needed every 4 hours Cont Pulmicort twice daily Continue with her montelukast at night Continue IV steroids 40 mg Solu-Medrol, will decrease it from TID to BID, since it is likely adding to her insomnia and intermittent confusion (3) CAP (community acquired pneumonia) Conclusion/Plan: She denies a significant cough, but she has an infiltrate on CXR Plan: Awaiting sputum for culture if she makes sputum Continue empiric IV antibiotics using ceftriaxone We will change her IV Zithromax to oral to decrease IV fluids. Today is the final dose of Zithromax (4) Acute on chronic systolic heart failure Conclusion/Plan: She has a moderately elevated BNP of 450, there was no old BNP for comparison. She has cardiomyopathy with EF of 37% by Echo from 9 months ago. The elevated troponins could be a type II ND from the stress of the pneumonia and asthma flare and high heart rate. Yesterday she was in more respiratory distress. A Chest x-ray was done and showed more pulmonary fluid. Lasix IV 20 mg x 1 was given in the afternoon. BNP has gone up today consistent with yesterday's clinical worsening of CHF (all labs were reviewed). The BNP lab lags behind current status. Her Echo was done yesteray and shows global hypokinesis, EF 40% Plan: Continue with daily or twice daily IV Lasix. Follow I's and O's, daily weight, daily BMP and Mg Continue her beta-nathaly. She was not on Spironolactone, I will start that today. She was not on OUMAR or ARB, possibly due to "soft" BP; her BP is running 114 systolic here. I will not add an OUMAR today (5) Prerenal azotemia Conclusion/Plan: All labs were reviewed. Today her BUN/creatinine ratio was greater than 20. I suspect is from getting IV Lasix Plan: Avoid nephrotoxins Unfortunately she needs to be on a diuretic for her pulmonary edema Follow BMP daily (6) Confusion Conclusion/Plan: At admission, the patient was alert and oriented and providing good details, appeared to have a good memory. Yesterday when I ask her questions she answered about a completely different topic. When the nurse asked her a question she responded that "pads are in the cupboard and the pies and the oven". However she was able to tell me that her is not home today, he was going with their daughter to the airport to pick up driver their son. I called the [employer] and confirmed that he was going to the airport. I also asked him if the patient has confusion or poor memory. He said "she has been declining lately". This EMR says that she has "cognitive deficits". She had slept poorly the prior night, so possibly confusion was from sleep deprivation. This could also be from getting high dose iv steroids. Since her confusion was up-and-down possibly she gets ICU psychosis in an elderly pt Plan: I will taper down the TID Solu-Medrol to BID today, in AM tomorrow than stop it soon Lorazepam is ordered as needed which we will continue Cont IV morphine prn for respiratory distress, which will also help her get needed rest
[2022-11-26] MEDS: APIXABAN 2.5 MG TABLET PO SCH (08:41)
[2022-11-26] MEDS: DIGOXIN 125 MCG TABLET PO SCH (08:42)
[2022-11-26] MEDS: MULTIVITAMIN TABLET PO SCH (08:42)
[2022-11-26] MEDS: DOCUSATE SODIUM 250 MG CAPSULE PO SCH (08:42)
[2022-11-26] MEDS: METOPROLOL SUCCINATE 50 MG TABLET PO SCH ×2 (08:42→21:28)
[2022-11-26] MEDS: ASPIRIN EC 81 MG TABLET PO SCH (08:43)
[2022-11-26] MEDS: polyethylene glycoL 3350 17 GM PACKET PO SCH (08:43)
[2022-11-26] MEDS: FAMOTIDINE 20 MG TABLET PO SCH ×2 (08:44→21:28)
[2022-11-26] MEDS: CALCIUM CARBONATE CHEW 500 MG TABLET PO SCH (08:44)
[2022-11-26] MEDS: FUROSEMIDE 20 MG/2 ML VIAL IVP SCH (08:44)
[2022-11-26] MEDS: cefTRIAXone 1 GM in SODIUM CHLORIDE 0.9% MINIBAG 100 ML IV SCH (08:45)
[2022-11-26] MEDS: MELOXICAM 7.5 MG TABLET PO SCH (10:15)
[2022-11-26] MEDS: COD LIVER OIL/ZINC OXIDE 113 GM TUBE TOP SCH ×2 (10:15→22:23)
[2022-11-26] MEDS ORDERED: AZITHROMYCIN 250 MG TABLET PO ONE (11:00)
[2022-11-26] MEDS: SPIRONOLACTONE 25 MG TABLET PO SCH (11:51)
[2022-11-26] MEDS: SODIUM CHLORIDE FLUSH 0.9% 10 ML SYRINGE IVP PRN (12:08)
[2022-11-26] MEDS: OXYMETAZOLINE HCL 100 SPRAYS BOTTLE NAS PRN (14:41)
[2022-11-26] MEDS: diltiaZEM INJ 125 MG in SODIUM CHLORIDE 0.9% 100ML 100 ML IV SCH (17:15)
[2022-11-26] MEDS: APIXABAN 5 MG TABLET PO SCH (21:28)
[2022-11-26] MEDS: ATORVASTATIN 10 MG TABLET PO SCH (21:28)
[2022-11-26] MEDS: MONTELUKAST 10 MG TABLET PO SCH (21:28)
[2022-11-27] MEDS: SODIUM CHLORIDE FLUSH 0.9% 10 ML SYRINGE IVP SCH ×3 (00:24→17:05)
[2022-11-27] MEDS: COD LIVER OIL/ZINC OXIDE 113 GM TUBE TOP SCH ×2 (05:42→20:54)
[2022-11-27 06:13] LABS: BASOPHILS % (AUTO) 0.1 %; HCT - HEMATOCRIT 41.3 % (37.0-47.0); HGB - HEMOGLOBIN 13.4 g/dL (12.0-16.0); LYMPHOCYTES # (AUTO) 0.3 10^3/uL (1.5-3.5); LYMPHOCYTES % (AUTO) 3.4 %; MEAN CORPUSCULAR HEMOGLOBIN 31.1 pg (27.0-31.0); MEAN CORPUSCULAR HGB CONC 32.4 g/dL (32.0-36.0); MEAN CORPUSCULAR VOLUME 95.8 fL (81.0-99.0); MEAN PLATELET VOLUME 10.9 fL (7.9-10.8); MONOCYTES # (AUTO) 0.6 10^3/uL (0.0-1.0); MONOCYTES % (AUTO) 6.9 %; NEUTROPHILS # (AUTO) 8.3 10^3/uL (1.5-6.6); NEUTROPHILS % (AUTO) 89.2 %; PLT - PLATELET COUNT 235 10^3/uL (130-450); RED BLOOD COUNT 4.31 10^6/uL (4.20-5.40); RED CELL DISTRIBUTION WIDTH 14.9 % (12.0-15.0); WHITE BLOOD COUNT 9.3 x10^3/uL (4.8-10.8)
[2022-11-27] MEDS: BUDESONIDE 0.5 MG/2 ML NEB INH SCH ×2 (06:15→18:56)
[2022-11-27] MEDS: LEVALBUTEROL 1.25 MG/3 ML NEB INH SCH ×4 (06:16→18:56)
[2022-11-27 06:22] LABS: CALCIUM, IONIZED 1.16 mmol/L (1.15-1.33); VBG PH 7.43 (7.31-7.41)
[2022-11-27 06:42] LABS: CALCIUM 9.4 mg/dL (8.5-10.3); CREATININE 0.5 mg/dL (0.6-1.3)
[2022-11-27] MEDS: methylPREDNISolone SUCCINATE 40 MG/ML VIAL IVP SCH ×2 (09:01→20:54)
[2022-11-27] MEDS: CALCIUM CARBONATE CHEW 500 MG TABLET PO SCH (09:01)
[2022-11-27] MEDS: FUROSEMIDE 20 MG/2 ML VIAL IVP SCH (09:01)
[2022-11-27] MEDS: MELOXICAM 7.5 MG TABLET PO SCH (09:01)
[2022-11-27] MEDS: APIXABAN 5 MG TABLET PO SCH ×2 (09:02→20:54)
[2022-11-27] MEDS: DIGOXIN 125 MCG TABLET PO SCH (09:02)
[2022-11-27] MEDS: DOCUSATE SODIUM 250 MG CAPSULE PO SCH (09:03)
[2022-11-27] MEDS: polyethylene glycoL 3350 17 GM PACKET PO SCH (09:03)
[2022-11-27] MEDS: FAMOTIDINE 20 MG TABLET PO SCH ×2 (09:03→20:54)
[2022-11-27] MEDS: ASPIRIN EC 81 MG TABLET PO SCH (09:03)
[2022-11-27] MEDS: MULTIVITAMIN TABLET PO SCH (09:03)
[2022-11-27] MEDS: cefTRIAXone 1 GM in SODIUM CHLORIDE 0.9% MINIBAG 100 ML IV SCH (09:09)
[2022-11-27] MEDS: METOPROLOL SUCCINATE 50 MG TABLET PO SCH ×2 (09:15→20:54)
[2022-11-27] MEDS: SPIRONOLACTONE 25 MG TABLET PO SCH (14:19)
[2022-11-27] MEDS: OXYMETAZOLINE HCL 100 SPRAYS BOTTLE NAS PRN (18:47)
--- NOTE | 2022-11-27 19:13 | PROVIDER PROGRESS NOTE ---
Assessment/Plan - Problem List (1) Atrial fibrillation with RVR Assessment/Plan: The pneumonia and asthma flare with respiratory distress have probably added to the tachycardia. TSH is WNL, ruling out hyperthyroidism She was moved out of ICU yesterday, on higher dose of Toprol BID and a Dig iv pushe then on new Dig daily This morning her HR is 50-80 at rest in Afib (all VS were reviewed). With activity her HR rises to 120-140. Plan: Remain on telemetry Cont daily po Dig 125 mcg Check Dig level in a.m. tomorrow Cont the increased Toprol dose of 100 twice daily Assess HR with more activity daily, PT and OT ordered today She reported that she has a Watchman device therefore no anticoagulants ordered (2) Asthma exacerbation Conclusion/Plan: Likely from the pneumonia seen on chest x-ray. She was wheezing and did not improve even after 3 nebulized bronchodilator treatments and Solu-Medrol in the ER Plan: Continue with scheduled bronchodilators and as needed every 4 hours Cont Pulmicort twice daily Continue with her montelukast at night Continue IV steroids 40 mg Solu-Medrol, I decreased it from TID to BID, since it was likely adding to her insomnia and intermittent confusion (noticed when in ICU) (3) CAP (community acquired pneumonia) Conclusion/Plan: She has a slight cough and an infiltrate on CXR Plan: Awaiting sputum for culture if she makes sputum Continue empiric IV antibiotics using ceftriaxone and she has finished a course of Zithromax Cont probiotic Cont Mucinex for expectoration (4) Acute on chronic systolic heart failure Conclusion/Plan: She had a moderately elevated BNP of 450, there was no old BNP for comparison. She has cardiomyopathy with EF of 37% by Echo from 9 months ago. The elevated troponins could be a type II AK from the stress of the pneumonia and asthma flare and high heart rate. When she was in more respiratory distress, a Chest x-ray was done and showed more pulmonary edema. Lasix IV was started BNP went up consistent with worsened CHF (all labs were reviewed), with her BNP lagging behind current status. Her Echo was done and shows global hypokinesis, EF 40% Plan: Continue with daily or twice daily IV Lasix. Follow I's and O's, daily weight, daily BMP and Mg Continue her beta-nathaly. She was not on Spironolactone, cont new Spironolactone. She was not on OUMAR or ARB, possibly due to "soft" BP; her BP is running 114 systolic here. I will not add an OUMAR yet (5) Prerenal azotemia Conclusion/Plan: All labs were reviewed. Her BUN/creatinine ratio is greater than 20. I suspect is from getting IV Lasix Plan: Avoid nephrotoxins Unfortunately she needs to be on a diuretic for her pulmonary edema Follow BMP daily (6) Confusion Conclusion/Plan: At admission, the patient was alert and oriented and providing good details, appeared to have a good memory. She was confused intermittently in ICU, talking about a pie in the oven. This EMR says that she has "cognitive deficits". Her confusion may be due to sleep deprivation, or iv steroids or ICU psychosis in an elderly pt Plan: Re-orient if needed Taper down iv steroids Lorazepam is ordered as needed which we will continue Cont IV morphine prn for respiratory distress, which will also help her get needed rest - Current Meds Current Meds: Current Medications Generic Name Dose Route Start Last Admin Trade Name Jose PRN Reason Stop Dose Admin Apixaban 5 mg 11/26/22 21:00 11/27/22 09:02 Apixaban 5 Mg Tablet PO 5 mg BID AUTUMN Administration Aspirin 81 mg 11/25/22 09:00 11/27/22 09:03 Aspirin Ec 81 Mg Tablet PO 81 mg DAILY AUTUMN Administration Atorvastatin Calcium 20 mg 11/24/22 21:00 11/26/22 21:28 Atorvastatin 10 Mg Tablet PO 20 mg QPM AUTUMN Administration Budesonide 0.5 mg 11/24/22 19:00 11/27/22 18:56 Budesonide 0.5 Mg/2 Ml Neb INH Not Given RTBID AUTUMN Calcium Carbonate/Glycine 500 mg 11/25/22 09:00 11/27/22 09:01 Calcium Carbonate Chew 500 Mg Tablet PO 500 mg DAILY AUTUMN Administration Digoxin 125 mcg 11/26/22 09:00 11/27/22 09:02 Digoxin 125 Mcg Tablet PO 125 mcg DAILY AUTUMN Administration Docusate Sodium 250 mg 11/25/22 09:00 11/27/22 09:03 Docusate Sodium 250 Mg Capsule PO 250 mg DAILY AUTUMN Administration Famotidine 20 mg 11/24/22 21:00 11/27/22 09:03 Famotidine 20 Mg Tablet PO 20 mg BID AUTUMN Administration Furosemide 20 mg 11/26/22 09:00 11/27/22 09:01 Furosemide 20 Mg/2 Ml Vial IVP 20 mg DAILY AUTUMN Administration Ceftriaxone Sodium 1 gm/ 100 mls @ 200 mls/hr 11/25/22 11:00 11/27/22 09:40 Sodium Chloride IV 11/29/22 00:01 Infused DAILY AUTUMN Infusion Levalbuterol HCl 1.25 mg 11/26/22 15:17 11/27/22 18:56 Levalbuterol 1.25 Mg/3 Ml Neb INH Not Given RTQID AUTUMN Meloxicam 15 mg 11/26/22 09:00 11/27/22 09:01 Meloxicam 7.5 Mg Tablet PO 15 mg DAILY AUTUMN Administration Methylprednisolone 40 mg 11/26/22 18:00 11/27/22 09:01 Methylprednisolone Succinate 40 Mg/Ml Vial IVP 40 mg BID AUTUMN Administration Metoprolol Succinate 100 mg 11/25/22 21:00 11/27/22 09:15 Metoprolol Succinate 50 Mg Tablet PO 100 mg BID AUTUMN Administration Montelukast Sodium 10 mg 11/24/22 21:00 11/26/22 21:28 Montelukast 10 Mg Tablet PO 10 mg HS AUTUMN Administration Multivitamins 1 tab 11/26/22 09:00 11/27/22 09:03 Multivitamin Tablet PO 1 tab DAILY AUTUMN Administration Oxymetazoline HCl 2 sprays 11/24/22 17:06 11/27/22 18:47 Oxymetazoline Hcl 100 Sprays Bottle LEAH 11/28/22 07:00 2 spr BID PRN Administration Nasal Congestion Polyethylene Glycol 17 gm 11/26/22 09:00 11/27/22 09:03 Polyethylene Glycol 3350 17 Gm Packet PO 17 gm DAILY AUTUMN Administration Sodium Chloride 10 ml 11/24/22 17:00 11/27/22 17:05 Sodium Chloride Flush 0.9% 10 Ml Syringe IVP 10 ml 0100,0900,1700 AUTUMN Administration Sodium Chloride 10 ml 11/24/22 12:40 11/26/22 12:08 Sodium Chloride Flush 0.9% 10 Ml Syringe IVP 10 ml PRN PRN Administration NEEDED PER PROVIDER ORDERS Spironolactone 25 mg 11/26/22 12:00 11/27/22 14:19 Spironolactone 25 Mg Tablet PO 25 mg 1200 AUTUMN Administration Zinc Oxide 1 gm 11/24/22 18:00 11/27/22 05:42 Cod Liver Oil/Zinc Oxide 113 Gm Tube TOP 1 applic BID AUTUMN Administration - Lab Result Fish Bone Diagrams: 11/27/22 05:20 11/27/22 05:20 - Additional Planning My Orders: My Active Orders 11/26/22 21:00 Apixaban [Eliquis] 5 mg PO BID 11/27/22 Evaluate and Treat OT [OT] Routine Evaluate and Treat PT [PT] Routine 11/28/22 05:00 BMP - BASIC METABOLIC PANEL [CHEM] DAILYLAB BNP - B-NATRIURETIC PEPTIDE [CHEM] DAILYLAB CBC - COMP BLD CT W/AUTO DIFF [HEME] DAILYLAB 11/29/22 05:00 BMP - BASIC METABOLIC PANEL [CHEM] DAILYLAB Subjective - Subjective Patient Reports: Shortness of Breath (with minimal activity, like sitting up to dangle at edge of bed) Objective Vital Signs: Vital Signs - 24 hr 11/26/22 11/26/22 11/26/22 20:00 20:33 21:30 Temperature 36.9 C Heart Rate 87 Heart Rate [ Activity] Heart Rate [ Brachial] Heart Rate [ 82 96 Monitoring electrodes] Heart Rate [ Sitting] Heart Rate [ Standing] Heart Rate [ Supine] Respiratory 20 22 Rate Blood Pressure [Activity] Blood Pressure 118/77 117/74 [Left Brachial artery] Blood Pressure [Right Brachial artery] Blood Pressure [Sitting] Blood Pressure [Standing] Blood Pressure [Supine] O2 Saturation 93 O2 Saturation [ Supine] 11/27/22 11/27/22 11/27/22 00:21 03:45 06:15 Temperature 36.9 C 36.6 C Heart Rate 65 Heart Rate [ Activity] Heart Rate [ Brachial] Heart Rate [ 105 H 71 Monitoring electrodes] Heart Rate [ Sitting] Heart Rate [ Standing] Heart Rate [ Supine] Respiratory 24 24 20 Rate Blood Pressure [Activity] Blood Pressure 126/95 H 132/95 H [Left Brachial artery] Blood Pressure [Right Brachial artery] Blood Pressure [Sitting] Blood Pressure [Standing] Blood Pressure [Supine] O2 Saturation 94 94 O2 Saturation [ Supine] 11/27/22 11/27/22 11/27/22 07:24 11:43 12:48 Temperature 36.4 C L 36.5 C Heart Rate 85 Heart Rate [ Activity] Heart Rate [ 82 93 Brachial] Heart Rate [ Monitoring electrodes] Heart Rate [ Sitting] Heart Rate [ Standing] Heart Rate [ Supine] Respiratory 20 22 24 Rate Blood Pressure [Activity] Blood Pressure [Left Brachial artery] Blood Pressure 143/94 H 102/74 [Right Brachial artery] Blood Pressure [Sitting] Blood Pressure [Standing] Blood Pressure [Supine] O2 Saturation 93 96 O2 Saturation [ Supine] 11/27/22 11/27/22 11/27/22 14:10 14:11 15:38 Temperature Heart Rate 69 Heart Rate [ 82 82 Activity] Heart Rate [ Brachial] Heart Rate [ Monitoring electrodes] Heart Rate [ 81 81 Sitting] Heart Rate [ 81 81 Standing] Heart Rate [ 71 71 Supine] Respiratory 16 Rate Blood Pressure 128/89 H 128/89 H [Activity] Blood Pressure [Left Brachial artery] Blood Pressure [Right Brachial artery] Blood Pressure 135/102 H 135/102 H [Sitting] Blood Pressure 105/66 105/66 [Standing] Blood Pressure 139/127 H 139/127 H [Supine] O2 Saturation O2 Saturation [ 96 Supine] 11/27/22 16:30 Temperature 36.6 C Heart Rate Heart Rate [ Activity] Heart Rate [ 97 Brachial] Heart Rate [ Monitoring electrodes] Heart Rate [ Sitting] Heart Rate [ Standing] Heart Rate [ Supine] Respiratory 26 H Rate Blood Pressure [Activity] Blood Pressure [Left Brachial artery] Blood Pressure 134/99 H [Right Brachial artery] Blood Pressure [Sitting] Blood Pressure [Standing] Blood Pressure [Supine] O2 Saturation 93 O2 Saturation [ Supine] Oxygen O2 Source Room air I&O (Last 24 Hrs): Intake and Output Totals x24h 11/25/22 11/26/22 11/27/22 23:59 23:59 23:59 Intake Total 1810 4085.297 4752 Output Total 1150 1500 2500 Balance 660 423.083 -930 General: Alert, Oriented x3 HEENT: EOMI, Mucous membr. moist/pink Neck: Supple, No JVD Neuro: Alert, Non Focal Cardiovascular: No murmurs Respiratory: Wheezes (Upper lung firlds only, prolonged exp phase), Other (Tachypneic with minimal movements) Abdomen: Normal bowel sounds, Soft, Other (Obese) Extremities: No clubbing, Other (1+ edema to mid shins) - Results Results: Laboratory Results WBC 9.3 x10^3/uL (4.8-10.8) 11/27/22 05:20 RBC 4.31 10^6/uL (4.20-5.40) 11/27/22 05:20 Hgb 13.4 g/dL (12.0-16.0) 11/27/22 05:20 Hct 41.3 % (37.0-47.0) 11/27/22 05:20 MCV 95.8 fL (81.0-99.0) 11/27/22 05:20 MCH 31.1 pg (27.0-31.0) H 11/27/22 05:20 MCHC 32.4 g/dL (32.0-36.0) 11/27/22 05:20 RDW 14.9 % (12.0-15.0) 11/27/22 05:20 Plt Count 235 10^3/uL (130-450) 11/27/22 05:20 MPV 10.9 fL (7.9-10.8) H 11/27/22 05:20 Neut # (Auto) 8.3 10^3/uL (1.5-6.6) H 11/27/22 05:20 Lymph # (Auto) 0.3 10^3/uL (1.5-3.5) L 11/27/22 05:20 Smith # (Auto) 0.6 10^3/uL (0.0-1.0) 11/27/22 05:20 Eos # (Auto) 0.0 10^3/uL (0.0-0.7) 11/27/22 05:20 Baso # (Auto) 0.0 10^3/uL (0.0-0.1) 11/27/22 05:20 Absolute Nucleated RBC 0.00 x10^3/uL 11/27/22 05:20 Nucleated RBC % 0.0 /100WBC 11/27/22 05:20 VBG pH 7.430 (7.31-7.41) H 11/27/22 05:20 Ionized Calcium 1.16 mmol/L (1.15-1.33) 11/27/22 05:20 Sodium 135 mmol/L (135-145) 11/27/22 05:20 Potassium 4.0 mmol/L (3.5-4.5) 11/27/22 05:20 Chloride 99 mmol/L (101-111) L 11/27/22 05:20 Carbon Dioxide 29 mmol/L (21-32) 11/27/22 05:20 Anion Gap 7.0 (6-13) 11/27/22 05:20 BUN 22 mg/dL (6-20) H 11/27/22 05:20 Creatinine 0.5 mg/dL (0.6-1.3) L 11/27/22 05:20 Estimated GFR (MDRD) 118 (>89) 11/27/22 05:20 Glucose 120 mg/dL (74-104) H 11/27/22 05:20 Calcium 9.4 mg/dL (8.5-10.3) 11/27/22 05:20 Phosphorus 3.0 mg/dL (2.5-5.0) 11/27/22 05:20 Magnesium 2.0 mg/dL (1.7-2.3) 11/26/22 04:20 Total Bilirubin 0.9 mg/dL (0.2-1.0) 11/24/22 06:55 AST 33 IU/L (10-42) 11/24/22 06:55 ALT 17 IU/L (10-60) 11/24/22 06:55 Alkaline Phosphatase 71 IU/L (42-121) 11/24/22 06:55 Troponin I High Sens 193.9 ng/L (2.3-14.8) H* 11/24/22 09:56 B-Natriuretic Peptide 600 pg/mL (5-100) H 11/27/22 05:20 Total Protein 6.7 g/dL (6.4-8.9) 11/24/22 06:55 Albumin 4.1 g/dL (3.2-5.5) 11/24/22 06:55 Globulin 2.6 g/dL (2.1-4.2) 11/24/22 06:55 Albumin/Globulin Ratio 1.6 (1.0-2.2) 11/24/22 06:55 Lipase 12 U/L (11-82) 11/24/22 06:55 Nasal Adenovirus (PCR) NOT DETECTED 11/24/22 07:11 Nasal B. parapertussis DNA (PCR) NOT DETECTED 11/24/22 07:11 Nasal Coronavir 229E PCR NOT DETECTED 11/24/22 07:11 Nasal Coronavir HKU1 PCR NOT DETECTED 11/24/22 07:11 Nasal Coronavir NL63 PCR NOT DETECTED 11/24/22 07:11 Nasal Coronavir OC43 PCR NOT DETECTED 11/24/22 07:11 Nasal Enterovir/Rhinovir PCR NOT DETECTED 11/24/22 07:11 Nasal Influenza B PCR NOT DETECTED 11/24/22 07:11 Nasal Influenza A PCR NOT DETECTED 11/24/22 07:11 Nasal Parainfluen 1 PCR NOT DETECTED 11/24/22 07:11 Nasal Parainfluen 2 PCR NOT DETECTED 11/24/22 07:11 Nasal Parainfluen 3 PCR NOT DETECTED 11/24/22 07:11 Nasal Parainfluen 4 PCR NOT DETECTED 11/24/22 07:11 Nasal RSV (PCR) NOT DETECTED 11/24/22 07:11 Nasal Screen MRSA (PCR) NEGATIVE (NEGATIVE) 11/24/22 13:15 Nasal B.pertussis DNA PCR NOT DETECTED 11/24/22 07:11 Nasal C.pneumoniae (PCR) NOT DETECTED 11/24/22 07:11 Leah Human Metapneumo PCR NOT DETECTED 11/24/22 07:11 Nasal M.pneumoniae (PCR) NOT DETECTED 11/24/22 07:11 Nasal SARS-CoV-2 (PCR) NOT DETECTED 11/24/22 07:11
[2022-11-27] MEDS: ATORVASTATIN 10 MG TABLET PO SCH (20:54)
[2022-11-27] MEDS: MONTELUKAST 10 MG TABLET PO SCH (20:55)
[2022-11-27] MEDS: guaiFENesin 600 MG TABLET PO SCH (22:41)
[2022-11-28] MEDS: SODIUM CHLORIDE FLUSH 0.9% 10 ML SYRINGE IVP SCH ×3 (00:23→17:06)
[2022-11-28 04:45] LABS: HCT - HEMATOCRIT 44.1 % (37.0-47.0); HGB - HEMOGLOBIN 14.4 g/dL (12.0-16.0); LYMPHOCYTES # (AUTO) 0.3 10^3/uL (1.5-3.5); LYMPHOCYTES % (AUTO) 3.3 %; MEAN CORPUSCULAR HEMOGLOBIN 31.5 pg (27.0-31.0); MEAN CORPUSCULAR HGB CONC 32.7 g/dL (32.0-36.0); MEAN CORPUSCULAR VOLUME 96.5 fL (81.0-99.0); MEAN PLATELET VOLUME 10.3 fL (7.9-10.8); MONOCYTES # (AUTO) 0.5 10^3/uL (0.0-1.0); MONOCYTES % (AUTO) 4.8 %; NEUTROPHILS # (AUTO) 8.7 10^3/uL (1.5-6.6); NEUTROPHILS % (AUTO) 91.7 %; PLT - PLATELET COUNT 263 10^3/uL (130-450); RED BLOOD COUNT 4.57 10^6/uL (4.20-5.40); RED CELL DISTRIBUTION WIDTH 14.6 % (12.0-15.0); WHITE BLOOD COUNT 9.5 x10^3/uL (4.8-10.8)
[2022-11-28 04:58] LABS: CALCIUM 9.3 mg/dL (8.5-10.3); CREATININE 0.6 mg/dL (0.6-1.3); DIGOXIN 0.5 ng/mL; POTASSIUM 4.3 mmol/L (3.5-4.5)
[2022-11-28] MEDS: LEVALBUTEROL 1.25 MG/3 ML NEB INH SCH ×4 (06:46→20:37)
[2022-11-28] MEDS: BUDESONIDE 0.5 MG/2 ML NEB INH SCH ×2 (06:46→20:37)
[2022-11-28] MEDS: CALCIUM CARBONATE CHEW 500 MG TABLET PO SCH (08:52)
[2022-11-28] MEDS: cefTRIAXone 1 GM in SODIUM CHLORIDE 0.9% MINIBAG 100 ML IV SCH (08:52)
[2022-11-28] MEDS: polyethylene glycoL 3350 17 GM PACKET PO SCH (08:52)
[2022-11-28] MEDS: DIGOXIN 125 MCG TABLET PO SCH (08:53)
[2022-11-28] MEDS: guaiFENesin 600 MG TABLET PO SCH ×2 (08:53→20:51)
[2022-11-28] MEDS: FAMOTIDINE 20 MG TABLET PO SCH ×2 (08:53→20:51)
[2022-11-28] MEDS: MELOXICAM 7.5 MG TABLET PO SCH (08:53)
[2022-11-28] MEDS: methylPREDNISolone SUCCINATE 40 MG/ML VIAL IVP SCH (08:53)
[2022-11-28] MEDS: DOCUSATE SODIUM 250 MG CAPSULE PO SCH (08:53)
[2022-11-28] MEDS: MULTIVITAMIN TABLET PO SCH (08:53)
[2022-11-28] MEDS: SACCHAROMYCES BOULARDII 250 MG CAPSULE PO SCH ×2 (08:54→17:06)
[2022-11-28] MEDS: COD LIVER OIL/ZINC OXIDE 113 GM TUBE TOP SCH ×2 (08:54→20:51)
[2022-11-28] MEDS: APIXABAN 5 MG TABLET PO SCH ×2 (08:54→20:51)
[2022-11-28] MEDS: ASPIRIN EC 81 MG TABLET PO SCH (08:54)
[2022-11-28] MEDS: METOPROLOL SUCCINATE 50 MG TABLET PO SCH ×2 (08:54→20:50)
[2022-11-28] MEDS: FUROSEMIDE 20 MG/2 ML VIAL IVP SCH (08:57)
[2022-11-28] MEDS: SPIRONOLACTONE 25 MG TABLET PO SCH (12:17)
[2022-11-28] MEDS: MONTELUKAST 10 MG TABLET PO SCH (20:51)
[2022-11-28] MEDS: ATORVASTATIN 10 MG TABLET PO SCH (20:51)
[2022-11-29] MEDS: SODIUM CHLORIDE FLUSH 0.9% 10 ML SYRINGE IVP SCH ×3 (02:38→17:27)
[2022-11-29] MEDS: LEVALBUTEROL 1.25 MG/3 ML NEB INH SCH ×4 (06:18→21:13)
[2022-11-29] MEDS: BUDESONIDE 0.5 MG/2 ML NEB INH SCH ×2 (06:18→21:13)
[2022-11-29 07:51] LABS: CALCIUM 9.5 mg/dL (8.5-10.3); CREATININE 0.5 mg/dL (0.6-1.3); POTASSIUM 4.1 mmol/L (3.5-4.5)
[2022-11-29] MEDS ORDERED: methylPREDNISolone 4 MG TABLET PO SCH (08:00)
[2022-11-29] MEDS: COD LIVER OIL/ZINC OXIDE 113 GM TUBE TOP SCH ×2 (08:51→20:54)
[2022-11-29] MEDS: SACCHAROMYCES BOULARDII 250 MG CAPSULE PO SCH ×2 (08:51→17:25)
[2022-11-29] MEDS: DOCUSATE SODIUM 250 MG CAPSULE PO SCH (08:51)
[2022-11-29] MEDS: guaiFENesin 600 MG TABLET PO SCH ×2 (08:51→20:53)
[2022-11-29] MEDS: polyethylene glycoL 3350 17 GM PACKET PO SCH (08:51)
[2022-11-29] MEDS: CALCIUM CARBONATE CHEW 500 MG TABLET PO SCH (08:51)
[2022-11-29] MEDS: DIGOXIN 125 MCG TABLET PO SCH (08:51)
[2022-11-29] MEDS: METOPROLOL SUCCINATE 50 MG TABLET PO SCH ×2 (08:51→20:54)
[2022-11-29] MEDS: MELOXICAM 7.5 MG TABLET PO SCH (08:51)
[2022-11-29] MEDS: FAMOTIDINE 20 MG TABLET PO SCH ×2 (08:51→20:53)
[2022-11-29] MEDS: FUROSEMIDE 20 MG/2 ML VIAL IVP SCH (08:52)
[2022-11-29] MEDS: MULTIVITAMIN TABLET PO SCH (08:52)
[2022-11-29] MEDS: ASPIRIN EC 81 MG TABLET PO SCH (09:50)
[2022-11-29] MEDS: APIXABAN 5 MG TABLET PO SCH ×2 (09:50→20:54)
[2022-11-29] MEDS: ACETAMINOPHEN 325 MG TABLET PO PRN ×2 (11:39→20:54)
[2022-11-29] MEDS: SPIRONOLACTONE 25 MG TABLET PO SCH (11:39)
--- NOTE | 2022-11-29 13:04 | PROVIDER PROGRESS NOTE ---
Assessment/Plan - Problem List (1) Atrial fibrillation with RVR Assessment/Plan: The pneumonia and asthma flare with respiratory distress added to the tachycardia. TSH is WNL, ruling out hyperthyroidism She was moved out of ICU, is on higher dose of Toprol BID and new Dig po daily This morning her HR is 50 and with rare 2 sec pauses at rest in Afib, but with activity her HR rises to 120-140 (all VS were reviewed). Her Dig leveltoday came back not toxic at 0.5 (all labs were reviewed0 Plan: Remain on telemetry Cont daily po Dig 125 mcg Cont the increased Toprol dose of 100 twice daily Assess HR with more activity daily, PT and OT ordered today She reported that she has a Watchman device but a DOAC is listed on her med list. I will cont her Eliquis, since it may need overlap if the device was rece ntly implanted (2) Asthma exacerbation Conclusion/Plan: Likely from the pneumonia seen on chest x-ray. She has less wheezing every day Plan: Continue with scheduled bronchodilators and prn every 4 hours Cont Pulmicort twice daily Continue with her montelukast at night I am tapering down her IV steroids 40 mg Solu-Medrol, I decreased it from TID to BID then daily, since it was likely adding to her insomnia and intermittent confusion (noticed when in ICU) (3) CAP (community acquired pneumonia) Conclusion/Plan: She continues to have a cough and an infiltrate on CXR Plan: Awaiting sputum for culture if she makes sputum Continue empiric IV antibiotics using ceftriaxone and she has finished a course of Zithromax Cont probiotic Cont Mucinex for expectoration (4) Acute on chronic systolic heart failure Conclusion/Plan: She had a moderately elevated BNP of 450, there was no old BNP for comparison. She has cardiomyopathy with EF of 37% by Echo from 9 months ago. The elevated troponins could be a type II [place] from the stress of the pneumonia and asthma flare and high heart rate. When she was in more respiratory distress, a Chest x-ray was done and showed more pulmonary edema. Lasix IV was started BNP went up consistent with worsened CHF (all labs were reviewed), with her BNP lagging behind current status. Her Echo was done and shows global hypokinesis, EF 40% Plan: Continue with daily or twice daily IV Lasix. Follow I's and O's, daily weight, daily BMP and Mg Continue her beta-nathaly. She was not on Spironolactone, cont new Spironolactone. She was not on OUMAR or ARB, possibly due to "soft" BP or due to a cough; her BP is running 114 systolic here. I will not add an OUMAR yet (5) Prerenal azotemia Conclusion/Plan: All labs were reviewed. Her BUN/creatinine ratio is greater than 20. I suspect is from getting IV Lasix Plan: Avoid nephrotoxins Unfortunately she needs to be on a diuretic for her pulmonary edema Follow BMP daily (6) Weakness and deconditioning Conclusion/Plan: She is extremely deconditioned, gets very tachycardic from just sitting up and dangling. Today she wants to take a shower therefore PT is going to let her save her energy for the shower Plan: Consideration for SNF or home health rehab. (7) Confusion Conclusion/Plan: IMPROVED At admission, the patient was alert and oriented and providing good details, appeared to have a good memory. She was confused intermittently in ICU, talking about a pie in the oven. This EMR says that she has "cognitive deficits". Her confusion may be due to sleep deprivation, or iv steroids or ICU psychosis in an elderly pt Plan: Re-orient if needed Taper down iv steroids Lorazepam is ordered as needed which we will continue Cont IV morphine prn for respiratory distress, which will also help her get needed rest - Current Meds Current Meds: Current Medications Generic Name Dose Route Start Last Admin Trade Name Freq PRN Reason Stop Dose Admin Acetaminophen 650 mg 11/24/22 12:40 11/29/22 11:39 Acetaminophen 325 Mg Tablet PO 650 mg Q4HR PRN Administration Pain 1 to 4, or Fever Apixaban 5 mg 11/26/22 21:00 11/29/22 09:50 Apixaban 5 Mg Tablet PO 5 mg BID AUTUMN Administration Aspirin 81 mg 11/25/22 09:00 11/29/22 09:50 Aspirin Ec 81 Mg Tablet PO 81 mg DAILY AUTUMN Administration Atorvastatin Calcium 20 mg 11/24/22 21:00 11/28/22 20:51 Atorvastatin 10 Mg Tablet PO 20 mg QPM AUTUMN Administration Budesonide 0.5 mg 11/24/22 19:00 11/29/22 06:18 Budesonide 0.5 Mg/2 Ml Neb INH 0.5 mg RTBID AUTUMN Administration Calcium Carbonate/Glycine 500 mg 11/25/22 09:00 11/29/22 08:51 Calcium Carbonate Chew 500 Mg Tablet PO 500 mg DAILY AUTUMN Administration Digoxin 125 mcg 11/26/22 09:00 11/29/22 08:51 Digoxin 125 Mcg Tablet PO 125 mcg DAILY AUTUMN Administration Docusate Sodium 250 mg 11/25/22 09:00 11/29/22 08:51 Docusate Sodium 250 Mg Capsule PO 250 mg DAILY AUTUMN Administration Famotidine 20 mg 11/24/22 21:00 11/29/22 08:51 Famotidine 20 Mg Tablet PO 20 mg BID AUTUMN Administration Furosemide 20 mg 11/26/22 09:00 11/29/22 08:52 Furosemide 20 Mg/2 Ml Vial IVP 20 mg DAILY AUTUMN Administration Guaifenesin 600 mg 11/27/22 22:03 11/29/22 08:51 Guaifenesin 600 Mg Tablet PO 600 mg BID AUTUMN Administration Levalbuterol HCl 1.25 mg 11/26/22 15:17 11/29/22 11:05 Levalbuterol 1.25 Mg/3 Ml Neb INH 1.25 mg RTQID AUTUMN Administration Meloxicam 15 mg 11/26/22 09:00 11/29/22 08:51 Meloxicam 7.5 Mg Tablet PO 15 mg DAILY AUTUMN Administration Metoprolol Succinate 100 mg 11/25/22 21:00 11/29/22 08:51 Metoprolol Succinate 50 Mg Tablet PO 100 mg BID AUTUMN Administration Montelukast Sodium 10 mg 11/24/22 21:00 11/28/22 20:51 Montelukast 10 Mg Tablet PO 10 mg HS AUTUMN Administration Multivitamins 1 tab 11/26/22 09:00 11/29/22 08:52 Multivitamin Tablet PO 1 tab DAILY AUTUMN Administration Polyethylene Glycol 17 gm 11/26/22 09:00 11/29/22 08:51 Polyethylene Glycol 3350 17 Gm Packet PO 17 gm DAILY AUTUMN Administration Saccharomyces Boulardii 250 mg 11/28/22 08:00 11/29/22 08:51 Saccharomyces Boulardii 250 Mg Capsule PO 250 mg BIDWM AUTUMN Administration Sodium Chloride 10 ml 11/24/22 17:00 11/29/22 08:52 Sodium Chloride Flush 0.9% 10 Ml Syringe IVP 10 ml 0100,0900,1700 AUTUMN Administration Sodium Chloride 10 ml 11/24/22 12:40 11/26/22 12:08 Sodium Chloride Flush 0.9% 10 Ml Syringe IVP 10 ml PRN PRN Administration NEEDED PER PROVIDER ORDERS Spironolactone 25 mg 11/26/22 12:00 11/29/22 11:39 Spironolactone 25 Mg Tablet PO 25 mg 1200 AUTUMN Administration Zinc Oxide 1 gm 11/24/22 18:00 11/29/22 08:51 Cod Liver Oil/Zinc Oxide 113 Gm Tube TOP 1 applic BID AUTUMN Administration - Lab Result Fish Bone Diagrams: 11/28/22 04:36 11/29/22 04:19 - Additional Planning My Orders: My Active Orders 11/30/22 08:00 methylPREDNISolone [Medrol] 12 mg PO ONCE 12/01/22 08:00 methylPREDNISolone [Medrol] 8 mg PO ONCE 12/02/22 08:00 methylPREDNISolone [Medrol] 4 mg PO ONCE Subjective - Subjective Patient Reports: Feeling Better (Overall has more energy, is getting better sleep so not as tired), Shortness of Breath (Still has a mild cough, is extremely short of breath with minimal activity, even moving in bed and sitting at edge of bed and dangling) Objective Vital Signs: Vital Signs - 24 hr 11/28/22 11/28/22 11/28/22 13:00 15:21 16:12 Temperature 36.5 C 36.5 C Heart Rate 53 L Heart Rate [ 76 93 Brachial] Heart Rate [ Monitoring electrodes] Respiratory 18 20 19 Rate Blood Pressure 142/82 H [Left Brachial artery] Blood Pressure 137/91 H [Right Brachial artery] O2 Saturation 98 95 11/28/22 11/28/22 11/29/22 20:36 21:00 00:38 Temperature 36.4 C L 36.7 C Heart Rate 97 Heart Rate [ Brachial] Heart Rate [ 65 68 Monitoring electrodes] Respiratory 18 22 18 Rate Blood Pressure 116/83 H [Left Brachial artery] Blood Pressure 148/92 H [Right Brachial artery] O2 Saturation 93 93 11/29/22 11/29/22 11/29/22 05:00 06:18 08:13 Temperature 36.2 C L 36.5 C Heart Rate 56 L Heart Rate [ 86 Brachial] Heart Rate [ 91 Monitoring electrodes] Respiratory 18 18 16 Rate Blood Pressure [Left Brachial artery] Blood Pressure 137/97 H 137/93 H [Right Brachial artery] O2 Saturation 96 94 11/29/22 11/29/22 11:05 11:30 Temperature Heart Rate 60 Heart Rate [ 83 Brachial] Heart Rate [ Monitoring electrodes] Respiratory 18 Rate Blood Pressure [Left Brachial artery] Blood Pressure 117/75 [Right Brachial artery] O2 Saturation Oxygen O2 Source Room air I&O (Last 24 Hrs): Intake and Output Totals x24h 11/27/22 11/28/22 11/29/22 23:59 23:59 23:59 Intake Total 1570 1060 360 Output Total 3450 2150 1400 Balance -1880 -1090 -1040 General: Alert, Oriented x3 HEENT: PERRLA, Mucous membr. moist/pink Neck: Supple Neuro: Alert, Non Focal Cardiovascular: No murmurs, Other (Irreg irreg) Respiratory: Other (Very prolonged expiratory phase but no wheezes or rales) Abdomen: Soft, Other (Obese) Extremities: No clubbing, No edema, No tenderness/swelling - Results Results: Laboratory Results WBC 9.5 x10^3/uL (4.8-10.8) 11/28/22 04:36 RBC 4.57 10^6/uL (4.20-5.40) 11/28/22 04:36 Hgb 14.4 g/dL (12.0-16.0) 11/28/22 04:36 Hct 44.1 % (37.0-47.0) 11/28/22 04:36 MCV 96.5 fL (81.0-99.0) 11/28/22 04:36 MCH 31.5 pg (27.0-31.0) H 11/28/22 04:36 MCHC 32.7 g/dL (32.0-36.0) 11/28/22 04:36 RDW 14.6 % (12.0-15.0) 11/28/22 04:36 Plt Count 263 10^3/uL (130-450) 11/28/22 04:36 MPV 10.3 fL (7.9-10.8) 11/28/22 04:36 Neut # (Auto) 8.7 10^3/uL (1.5-6.6) H 11/28/22 04:36 Lymph # (Auto) 0.3 10^3/uL (1.5-3.5) L 11/28/22 04:36 [place] # (Auto) 0.5 10^3/uL (0.0-1.0) 11/28/22 04:36 Eos # (Auto) 0.0 10^3/uL (0.0-0.7) 11/28/22 04:36 Baso # (Auto) 0.0 10^3/uL (0.0-0.1) 11/28/22 04:36 Absolute Nucleated RBC 0.00 x10^3/uL 11/28/22 04:36 Nucleated RBC % 0.0 /100WBC 11/28/22 04:36 VBG pH 7.430 (7.31-7.41) H 11/27/22 05:20 Ionized Calcium 1.16 mmol/L (1.15-1.33) 11/27/22 05:20 Sodium 137 mmol/L (135-145) 11/29/22 04:19 Potassium 4.1 mmol/L (3.5-4.5) 11/29/22 04:19 Chloride 98 mmol/L (101-111) L 11/29/22 04:19 Carbon Dioxide 30 mmol/L (21-32) 11/29/22 04:19 Anion Gap 9.0 (6-13) 11/29/22 04:19 BUN 22 mg/dL (6-20) H 11/29/22 04:19 Creatinine 0.5 mg/dL (0.6-1.3) L 11/29/22 04:19 Estimated GFR (MDRD) 118 (>89) 11/29/22 04:19 Glucose 93 mg/dL (74-104) 11/29/22 04:19 Calcium 9.5 mg/dL (8.5-10.3) 11/29/22 04:19 Phosphorus 3.0 mg/dL (2.5-5.0) 11/27/22 05:20 Magnesium 2.0 mg/dL (1.7-2.3) 11/26/22 04:20 Total Bilirubin 0.9 mg/dL (0.2-1.0) 11/24/22 06:55 AST 33 IU/L (10-42) 11/24/22 06:55 ALT 17 IU/L (10-60) 11/24/22 06:55 Alkaline Phosphatase 71 IU/L (42-121) 11/24/22 06:55 Troponin I High Sens 193.9 ng/L (2.3-14.8) H* 11/24/22 09:56 B-Natriuretic Peptide 619 pg/mL (5-100) H 11/28/22 04:36 Total Protein 6.7 g/dL (6.4-8.9) 11/24/22 06:55 Albumin 4.1 g/dL (3.2-5.5) 11/24/22 06:55 Globulin 2.6 g/dL (2.1-4.2) 11/24/22 06:55 Albumin/Globulin Ratio 1.6 (1.0-2.2) 11/24/22 06:55 Lipase 12 U/L (11-82) 11/24/22 06:55 Nasal Adenovirus (PCR) NOT DETECTED 11/24/22 07:11 Nasal B. parapertussis DNA (PCR) NOT DETECTED 11/24/22 07:11 Nasal Coronavir 229E PCR NOT DETECTED 11/24/22 07:11 Nasal Coronavir HKU1 PCR NOT DETECTED 11/24/22 07:11 Nasal Coronavir NL63 PCR NOT DETECTED 11/24/22 07:11 Nasal Coronavir OC43 PCR NOT DETECTED 11/24/22 07:11 Nasal Enterovir/Rhinovir PCR NOT DETECTED 11/24/22 07:11 Nasal Influenza B PCR NOT DETECTED 11/24/22 07:11 Nasal Influenza A PCR NOT DETECTED 11/24/22 07:11 Nasal Parainfluen 1 PCR NOT DETECTED 11/24/22 07:11 Nasal Parainfluen 2 PCR NOT DETECTED 11/24/22 07:11 Nasal Parainfluen 3 PCR NOT DETECTED 11/24/22 07:11 Nasal Parainfluen 4 PCR NOT DETECTED 11/24/22 07:11 Nasal RSV (PCR) NOT DETECTED 11/24/22 07:11 Nasal Screen MRSA (PCR) NEGATIVE (NEGATIVE) 11/24/22 13:15 Nasal B.pertussis DNA PCR NOT DETECTED 11/24/22 07:11 Nasal C.pneumoniae (PCR) NOT DETECTED 11/24/22 07:11 Peng Human Metapneumo PCR NOT DETECTED 11/24/22 07:11 Nasal M.pneumoniae (PCR) NOT DETECTED 11/24/22 07:11 Nasal SARS-CoV-2 (PCR) NOT DETECTED 11/24/22 07:11 Last Dose Date 11-27-2022 11/28/22 04:36 Last Dose Time 90111/28/22 04:36 Digoxin 0.5 ng/mL 11/28/22 04:36
[2022-11-29] MEDS ORDERED: BENZOCAINE/MENTHOL LOZENGE MM PRN (13:06)
--- NOTE | 2022-11-29 13:06 | PROVIDER PROGRESS NOTE ---
Assessment/Plan - Problem List (1) Atrial fibrillation with RVR Assessment/Plan: The pneumonia and asthma flare with respiratory distress added to the tachycardia. TSH is WNL, ruling out hyperthyroidism She was moved out of ICU, is on higher dose of Toprol BID and new Dig po daily Her HR is 50 and with rare 2 sec pauses at rest in Afib, but with activity her HR rises to 120-140 (all VS were reviewed). Her Dig level yesterday came back not toxic at 0.5 (all labs were reviewed0 Plan: Remain on telemetry Cont daily po Dig 125 mcg Cont the increased Toprol dose of 100 twice daily Assess HR with more activity daily, PT and OT to continue She reported that she has a Watchman device but a DOAC is listed on her med list. I will cont her Eliquis, since it may need overlap if the device was recently implanted (2) Asthma exacerbation Conclusion/Plan: Likely from the pneumonia seen on chest x-ray. She has less wheezing every day Plan: Continue with scheduled bronchodilators and prn every 4 hours Cont Pulmicort twice daily Continue with her montelukast at night I have tapered to off her IV steroids. Today she is starting on oral steroids with a Medrol dose pack type schedule: 16 mg today, tomorrow 12mg, next day 8mg, next day 4 mg (3) CAP (community acquired pneumonia) Conclusion/Plan: She continues to have a cough butstated "it is opening up her lungs" She has finished a 5-day course of empiric IV ceftriaxone and she has finished a course of Zithromax Plan: Awaiting sputum for culture if she makes sputum Cont Mucinex for expectoration We will give Cepacol lozenges for the cough (4) Acute on chronic systolic heart failure Conclusion/Plan: She had a moderately elevated BNP of 450, there was no old BNP for comparison. She has cardiomyopathy with EF of 37% by Echo from 9 months ago. The elevated troponins could be a type II [place] from the stress of the pneumonia and asthma flare and high heart rate. When she was in more respiratory distress, a Chest x-ray was done and showed more pulmonary edema. Lasix IV was started BNP went up consistent with worsened CHF (all labs were reviewed), with her BNP lagging behind clinical status. Her Echo was done and shows global hypokinesis, EF 40% Plan: Today will be her last day of IV Lasix. Tomorrow I will put her on Lasix 40 mg p.o. daily Continue her beta-nathaly. Cont new Spironolactone. She was not on OUMAR or ARB, possibly due to "soft" BP or due to a cough; her BP is running 114 systolic here. I will not add an OUMAR yet (5) Prerenal azotemia Conclusion/Plan: All labs were reviewed. Her BUN/creatinine ratio is still greater than 20. I suspect is from getting IV Lasix Plan: Avoid nephrotoxins Unfortunately she needs to be on a diuretic for her pulmonary edema Today will be her last day of IV Lasix. Tomorrow I will put her on Lasix 40 mg p.o. daily Follow BMP daily (6) Weakness and deconditioning Conclusion/Plan: She is extremely deconditioned, gets very tachycardic from just sitting up and dangling. Yesterday she took a shower therefore PT let her save her energy for the shower Plan: Her activity only needs to be able to get up from bed, stand and pivot and get in a wheelchair Ordered home health for more rehab. (7) Confusion Conclusion/Plan: IMPROVED At admission, the patient was alert and oriented and providing good details, appeared to have a good memory. She was confused intermittently in ICU, talking about a pie in the oven. This EMR says that she has "cognitive deficits". Her confusion was probably due to sleep deprivation, or iv steroids or ICU psychosis in an elderly pt Plan: Re-orient if needed Taper down iv steroids Lorazepam is ordered as needed which we will continue Cont IV morphine prn for respiratory distress, which will also help her get ne eded rest - Current Meds Current Meds: Current Medications Generic Name Dose Route Start Last Admin Trade Name Freq PRN Reason Stop Dose Admin Acetaminophen 650 mg 11/24/22 12:40 11/29/22 11:39 Acetaminophen 325 Mg Tablet PO 650 mg Q4HR PRN Administration Pain 1 to 4, or Fever Apixaban 5 mg 11/26/22 21:00 11/29/22 09:50 Apixaban 5 Mg Tablet PO 5 mg BID AUTUMN Administration Aspirin 81 mg 11/25/22 09:00 11/29/22 09:50 Aspirin Ec 81 Mg Tablet PO 81 mg DAILY AUTUMN Administration Atorvastatin Calcium 20 mg 11/24/22 21:00 11/28/22 20:51 Atorvastatin 10 Mg Tablet PO 20 mg QPM AUTUMN Administration Budesonide 0.5 mg 11/24/22 19:00 11/29/22 06:18 Budesonide 0.5 Mg/2 Ml Neb INH 0.5 mg RTBID AUTUMN Administration Calcium Carbonate/Glycine 500 mg 11/25/22 09:00 11/29/22 08:51 Calcium Carbonate Chew 500 Mg Tablet PO 500 mg DAILY AUTUMN Administration Digoxin 125 mcg 11/26/22 09:00 11/29/22 08:51 Digoxin 125 Mcg Tablet PO 125 mcg DAILY AUTUMN Administration Docusate Sodium 250 mg 11/25/22 09:00 11/29/22 08:51 Docusate Sodium 250 Mg Capsule PO 250 mg DAILY AUTUMN Administration Famotidine 20 mg 11/24/22 21:00 11/29/22 08:51 Famotidine 20 Mg Tablet PO 20 mg BID AUTUMN Administration Furosemide 20 mg 11/26/22 09:00 11/29/22 08:52 Furosemide 20 Mg/2 Ml Vial IVP 20 mg DAILY AUTUMN Administration Guaifenesin 600 mg 11/27/22 22:03 11/29/22 08:51 Guaifenesin 600 Mg Tablet PO 600 mg BID AUTUMN Administration Levalbuterol HCl 1.25 mg 11/26/22 15:17 11/29/22 11:05 Levalbuterol 1.25 Mg/3 Ml Neb INH 1.25 mg RTQID AUTUMN Administration Meloxicam 15 mg 11/26/22 09:00 11/29/22 08:51 Meloxicam 7.5 Mg Tablet PO 15 mg DAILY AUTUMN Administration Metoprolol Succinate 100 mg 11/25/22 21:00 11/29/22 08:51 Metoprolol Succinate 50 Mg Tablet PO 100 mg BID AUTUMN Administration Montelukast Sodium 10 mg 11/24/22 21:00 11/28/22 20:51 Montelukast 10 Mg Tablet PO 10 mg HS AUTUMN Administration Multivitamins 1 tab 11/26/22 09:00 11/29/22 08:52 Multivitamin Tablet PO 1 tab DAILY AUTUMN Administration Polyethylene Glycol 17 gm 11/26/22 09:00 11/29/22 08:51 Polyethylene Glycol 3350 17 Gm Packet PO 17 gm DAILY AUTUMN Administration Saccharomyces Boulardii 250 mg 11/28/22 08:00 11/29/22 08:51 Anuel Whitleyi 250 Mg Capsule PO 250 mg BIDWM AUTUMN Administration Sodium Chloride 10 ml 11/24/22 17:00 11/29/22 08:52 Sodium Chloride Flush 0.9% 10 Ml Syringe IVP 10 ml 0100,0900,1700 AUTUMN Administration Sodium Chloride 10 ml 11/24/22 12:40 11/26/22 12:08 Sodium Chloride Flush 0.9% 10 Ml Syringe IVP 10 ml PRN PRN Administration NEEDED PER PROVIDER ORDERS Spironolactone 25 mg 11/26/22 12:00 11/29/22 11:39 Spironolactone 25 Mg Tablet PO 25 mg 1200 AUTUMN Administration Zinc Oxide 1 gm 11/24/22 18:00 11/29/22 08:51 Cod Liver Oil/Zinc Oxide 113 Gm Tube TOP 1 applic BID AUTUMN Administration - Lab Result Fish Bone Diagrams: 11/28/22 04:36 11/29/22 04:19 - Additional Planning My Orders: My Active Orders 11/30/22 08:00 methylPREDNISolone [Medrol] 12 mg PO ONCE 12/01/22 08:00 methylPREDNISolone [Medrol] 8 mg PO ONCE 12/02/22 08:00 methylPREDNISolone [Medrol] 4 mg PO ONCE Subjective - Subjective Patient Reports: Feeling Better (Is getting good restful sleep at night now.), Cough (Increased cough the last 2 days, feels like it is opening up her lungs, but wants a cough lozenge), Shortness of Breath (Unchanged severe shortness of breath with minimal activity. Describes that at home she only gets from bed to wheelchair) Objective Vital Signs: Vital Signs - 24 hr 11/28/22 11/28/22 11/28/22 15:21 16:12 20:36 Temperature 36.5 C Heart Rate 53 L 97 Heart Rate [ 93 Brachial] Heart Rate [ Monitoring electrodes] Respiratory 20 19 18 Rate Blood Pressure [Left Brachial artery] Blood Pressure 137/91 H [Right Brachial artery] O2 Saturation 95 11/28/22 11/29/22 11/29/22 21:00 00:38 05:00 Temperature 36.4 C L 36.7 C 36.2 C L Heart Rate Heart Rate [ Brachial] Heart Rate [ 65 68 91 Monitoring electrodes] Respiratory 22 18 18 Rate Blood Pressure 116/83 H [Left Brachial artery] Blood Pressure 148/92 H 137/97 H [Right Brachial artery] O2 Saturation 93 93 96 11/29/22 11/29/22 11/29/22 06:18 08:13 11:05 Temperature 36.5 C Heart Rate 56 L 60 Heart Rate [ 86 Brachial] Heart Rate [ Monitoring electrodes] Respiratory 18 16 18 Rate Blood Pressure [Left Brachial artery] Blood Pressure 137/93 H [Right Brachial artery] O2 Saturation 94 11/29/22 11:30 Temperature Heart Rate Heart Rate [ 83 Brachial] Heart Rate [ Monitoring electrodes] Respiratory Rate Blood Pressure [Left Brachial artery] Blood Pressure 117/75 [Right Brachial artery] O2 Saturation Oxygen O2 Source Room air I&O (Last 24 Hrs): Intake and Output Totals x24h 11/27/22 11/28/22 11/29/22 23:59 23:59 23:59 Intake Total 1570 1060 360 Output Total 3450 2150 1400 Balance -1880 -1090 -1040 General: Alert, Oriented x3 HEENT: EOMI, Mucous membr. moist/pink Neck: Supple Neuro: Alert, Non Focal Cardiovascular: No murmurs, Other (Irregularly irregular) Respiratory: No respiratory distress (Clear lung taylor) Abdomen: Soft, Other (Obese) Extremities: No clubbing, No edema, No tenderness/swelling - Results Results: Laboratory Results WBC 9.5 x10^3/uL (4.8-10.8) 11/28/22 04:36 RBC 4.57 10^6/uL (4.20-5.40) 11/28/22 04:36 Hgb 14.4 g/dL (12.0-16.0) 11/28/22 04:36 Hct 44.1 % (37.0-47.0) 11/28/22 04:36 MCV 96.5 fL (81.0-99.0) 11/28/22 04:36 MCH 31.5 pg (27.0-31.0) H 11/28/22 04:36 MCHC 32.7 g/dL (32.0-36.0) 11/28/22 04:36 RDW 14.6 % (12.0-15.0) 11/28/22 04:36 Plt Count 263 10^3/uL (130-450) 11/28/22 04:36 MPV 10.3 fL (7.9-10.8) 11/28/22 04:36 Neut # (Auto) 8.7 10^3/uL (1.5-6.6) H 11/28/22 04:36 Lymph # (Auto) 0.3 10^3/uL (1.5-3.5) L 11/28/22 04:36 [place] # (Auto) 0.5 10^3/uL (0.0-1.0) 11/28/22 04:36 Eos # (Auto) 0.0 10^3/uL (0.0-0.7) 11/28/22 04:36 Baso # (Auto) 0.0 10^3/uL (0.0-0.1) 11/28/22 04:36 Absolute Nucleated RBC 0.00 x10^3/uL 11/28/22 04:36 Nucleated RBC % 0.0 /100WBC 11/28/22 04:36 VBG pH 7.430 (7.31-7.41) H 11/27/22 05:20 Ionized Calcium 1.16 mmol/L (1.15-1.33) 11/27/22 05:20 Sodium 137 mmol/L (135-145) 11/29/22 04:19 Potassium 4.1 mmol/L (3.5-4.5) 11/29/22 04:19 Chloride 98 mmol/L (101-111) L 11/29/22 04:19 Carbon Dioxide 30 mmol/L (21-32) 11/29/22 04:19 Anion Gap 9.0 (6-13) 11/29/22 04:19 BUN 22 mg/dL (6-20) H 11/29/22 04:19 Creatinine 0.5 mg/dL (0.6-1.3) L 11/29/22 04:19 Estimated GFR (MDRD) 118 (>89) 11/29/22 04:19 Glucose 93 mg/dL (74-104) 11/29/22 04:19 Calcium 9.5 mg/dL (8.5-10.3) 11/29/22 04:19 Phosphorus 3.0 mg/dL (2.5-5.0) 11/27/22 05:20 Magnesium 2.0 mg/dL (1.7-2.3) 11/26/22 04:20 Total Bilirubin 0.9 mg/dL (0.2-1.0) 11/24/22 06:55 AST 33 IU/L (10-42) 11/24/22 06:55 ALT 17 IU/L (10-60) 11/24/22 06:55 Alkaline Phosphatase 71 IU/L (42-121) 11/24/22 06:55 Troponin I High Sens 193.9 ng/L (2.3-14.8) H* 11/24/22 09:56 B-Natriuretic Peptide 619 pg/mL (5-100) H 11/28/22 04:36 Total Protein 6.7 g/dL (6.4-8.9) 11/24/22 06:55 Albumin 4.1 g/dL (3.2-5.5) 11/24/22 06:55 Globulin 2.6 g/dL (2.1-4.2) 11/24/22 06:55 Albumin/Globulin Ratio 1.6 (1.0-2.2) 11/24/22 06:55 Lipase 12 U/L (11-82) 11/24/22 06:55 Nasal Adenovirus (PCR) NOT DETECTED 11/24/22 07:11 Nasal B. parapertussis DNA (PCR) NOT DETECTED 11/24/22 07:11 Nasal Coronavir 229E PCR NOT DETECTED 11/24/22 07:11 Nasal Coronavir HKU1 PCR NOT DETECTED 11/24/22 07:11 Nasal Coronavir NL63 PCR NOT DETECTED 11/24/22 07:11 Nasal Coronavir OC43 PCR NOT DETECTED 11/24/22 07:11 Nasal Enterovir/Rhinovir PCR NOT DETECTED 11/24/22 07:11 Nasal Influenza B PCR NOT DETECTED 11/24/22 07:11 Nasal Influenza A PCR NOT DETECTED 11/24/22 07:11 Nasal Parainfluen 1 PCR NOT DETECTED 11/24/22 07:11 Nasal Parainfluen 2 PCR NOT DETECTED 11/24/22 07:11 Nasal Parainfluen 3 PCR NOT DETECTED 11/24/22 07:11 Nasal Parainfluen 4 PCR NOT DETECTED 11/24/22 07:11 Nasal RSV (PCR) NOT DETECTED 11/24/22 07:11 Nasal Screen MRSA (PCR) NEGATIVE (NEGATIVE) 11/24/22 13:15 Nasal B.pertussis DNA PCR NOT DETECTED 11/24/22 07:11 Nasal C.pneumoniae (PCR) NOT DETECTED 11/24/22 07:11 Peng Human Metapneumo PCR NOT DETECTED 11/24/22 07:11 Nasal M.pneumoniae (PCR) NOT DETECTED 11/24/22 07:11 Nasal SARS-CoV-2 (PCR) NOT DETECTED 11/24/22 07:11 Last Dose Date 11-27-2022 11/28/22 04:36 Last Dose Time 90111/28/22 04:36 Digoxin 0.5 ng/mL 11/28/22 04:36
[2022-11-29] MEDS: MONTELUKAST 10 MG TABLET PO SCH (20:53)
[2022-11-29] MEDS: ATORVASTATIN 10 MG TABLET PO SCH (20:54)
[2022-11-30] MEDS: SODIUM CHLORIDE FLUSH 0.9% 10 ML SYRINGE IVP SCH ×3 (00:02→16:43)
[2022-11-30] MEDS: BUDESONIDE 0.5 MG/2 ML NEB INH SCH ×2 (07:55→20:30)
[2022-11-30] MEDS: LEVALBUTEROL 1.25 MG/3 ML NEB INH SCH ×4 (07:56→20:30)
[2022-11-30] MEDS ORDERED: methylPREDNISolone 4 MG TABLET PO SCH (08:00)
[2022-11-30] MEDS: METOPROLOL SUCCINATE 50 MG TABLET PO SCH ×2 (09:02→22:00)
[2022-11-30] MEDS: DIGOXIN 125 MCG TABLET PO SCH (09:02)
[2022-11-30] MEDS: DOCUSATE SODIUM 250 MG CAPSULE PO SCH (09:03)
[2022-11-30] MEDS: MULTIVITAMIN TABLET PO SCH (09:03)
[2022-11-30] MEDS: guaiFENesin 600 MG TABLET PO SCH ×2 (09:03→21:59)
[2022-11-30] MEDS: ASPIRIN EC 81 MG TABLET PO SCH (09:03)
[2022-11-30] MEDS: FUROSEMIDE 40 MG TABLET PO SCH (09:03)
[2022-11-30] MEDS: CALCIUM CARBONATE CHEW 500 MG TABLET PO SCH (09:03)
[2022-11-30] MEDS: APIXABAN 5 MG TABLET PO SCH ×2 (09:03→21:59)
[2022-11-30] MEDS: FAMOTIDINE 20 MG TABLET PO SCH ×2 (09:03→21:59)
[2022-11-30] MEDS: polyethylene glycoL 3350 17 GM PACKET PO SCH (09:05)
[2022-11-30] MEDS: MELOXICAM 7.5 MG TABLET PO SCH (09:07)
[2022-11-30] MEDS: COD LIVER OIL/ZINC OXIDE 113 GM TUBE TOP SCH ×2 (09:07→22:02)
[2022-11-30] MEDS: SACCHAROMYCES BOULARDII 250 MG CAPSULE PO SCH ×2 (09:07→16:43)
[2022-11-30] MEDS: SPIRONOLACTONE 25 MG TABLET PO SCH (11:04)
--- NOTE | 2022-11-30 14:09 | PROVIDER PROGRESS NOTE ---
Assessment/Plan - Problem List (1) Atrial fibrillation with RVR Assessment/Plan: The pneumonia and asthma flare with respiratory distress added to the tachycardia. TSH is WNL, ruling out hyperthyroidism She is now on higher dose of Toprol BID and new Dig po daily. Her HR is 50 and with rare 2 sec pauses at rest in Afib, but with activity her HR rises to 120- 140 (i think from severe deconditioning). Her Dig level came back not toxic at 0.5 (all labs were reviewed0 Plan: Cont daily po Dig 125 mcg Cont the increased Toprol dose of 100 twice daily Remain on telemetry while here She reported that she has a Watchman device but a DOAC is listed on her med list. I will cont her Eliquis, since it may need overlap if the device was recently implanted (2) Deconditioning She is extremely deconditioned, gets very tachycardic from just sitting up and dangling. When she took a shower, PT let her "save her energy for the shower" Her activity ability only needs to be able to get up from bed, then stand, and pivot and get in a wheelchair, per PT. However the family ( and youngest & oldest sons) at bedside told me today, that she used to walk to the bathroom w/ a walker. Home Health for PT and OT were ordered, she chose [facility]. Our kinesiology internship Radha documented that patient was advised she should have more caregiver help but the patient refused a aregiver list and said that the family will do everything. Today when I discussed being discharge soon, she said the family can do nothing to help, and her elderly does whatever he can. Plan: With the and 2 sons in her room, I discussed the difference between home health PT and OT and caregiver help in the house. The 2 sons agreed with me that the patient needs extra caregiving in the house. I asked today's kinesiology internship to give the family a list of caregivers. And I asked social contact worker to review all the patient's options regarding caregiving help at home and how to arrange and pay for it. No discharge today, since it is not a safe discharge plan. I anticipate she will be discharged tomorrow (3) Asthma exacerbation Conclusion/Plan: IMPROVED Likely from the pneumonia seen on chest x-ray. She has less wheezing every day Plan: Continue with scheduled bronchodilators and prn every 4 hours Cont Pulmicort twice daily Continue with her montelukast at night I have tapered to off her IV steroids. And orderede oral steroids with a Medrol dose pack type schedule: 16 mg>> 12mg>> 8mg>> 4 mg (4) CAP (community acquired pneumonia) Conclusion/Plan: IMPROVED She continues to have a cough butstated "it is opening up her lungs" She has finished a 5-day course of empiric IV ceftriaxone and she has finished a course of Zithromax Plan: Cont Mucinex for expectoration We will give Cepacol lozenges for the cough (5) Acute on chronic systolic heart failure Conclusion/Plan: She had a moderately elevated BNP of 450, there was no old BNP for comparison. She has cardiomyopathy with EF of 37% by Echo from 9 months ago. The elevated troponins could be a type II [place] from the stress of the pneumonia and asthma flare and high heart rate. When she was in more respiratory distress, a Chest x-ray was done and showed more pulmonary edema. Lasix IV was started BNP went up consistent with worsened CHF (all labs were reviewed), with her BNP lagging behind clinical status. Her Echo was done and shows global hypokinesis, EF 40% Plan: I stopped IV Lasix, and today put her on Lasix 40 mg p.o. daily Continue her beta-nathaly. Cont new Spironolactone. She was not on OUMAR or ARB, possibly due to "soft" BP or due to a cough; her BP is running 114 systolic here. I will not start an OUMAR which could promote her coughm, and I will add an ARB if BP is stable (6) Prerenal azotemia Conclusion/Plan: All labs were reviewed. Her BUN/creatinine ratio is still greater than 20. I suspect is from getting IV Lasix Plan: Avoid nephrotoxins Unfortunately she needs to be on a diuretic for her pulmonary edema Yesterday was be her last day of IV Lasix. Today start on Lasix 40 mg p.o. daily Follow BMP daily (7) Confusion Conclusion/Plan: IMPROVED At admission, the patient was alert and oriented and providing good details, appeared to have a good memory. She was confused intermittently in ICU, talking about a pie in the oven. This EMR says that she has "cognitive deficits". Her confusion was probably due to sleep deprivation, or iv steroids or ICU psychosis in an elderly pt Plan: Re-orient if needed Cont tapering down her steroids Home med Lorazepam is ordered as needed which we will continue - Current Meds Current Meds: Current Medications Generic Name Dose Route Start Last Admin Trade Name Jose PRN Reason Stop Dose Admin Acetaminophen 650 mg 11/24/22 12:40 11/29/22 20:54 Acetaminophen 325 Mg Tablet PO 650 mg Q4HR PRN Administration Pain 1 to 4, or Fever Apixaban 5 mg 11/26/22 21:00 11/30/22 09:03 Apixaban 5 Mg Tablet PO 5 mg BID AUTUMN Administration Aspirin 81 mg 11/25/22 09:00 11/30/22 09:03 Aspirin Ec 81 Mg Tablet PO 81 mg DAILY AUTUMN Administration Atorvastatin Calcium 20 mg 11/24/22 21:00 11/29/22 20:54 Atorvastatin 10 Mg Tablet PO 20 mg QPM AUTUMN Administration Budesonide 0.5 mg 11/24/22 19:00 11/30/22 07:55 Budesonide 0.5 Mg/2 Ml Neb INH 0.5 mg RTBID AUTUMN Administration Calcium Carbonate/Glycine 500 mg 11/25/22 09:00 11/30/22 09:03 Calcium Carbonate Chew 500 Mg Tablet PO 500 mg DAILY AUTUMN Administration Digoxin 125 mcg 11/26/22 09:00 11/30/22 09:02 Digoxin 125 Mcg Tablet PO 125 mcg DAILY AUTUMN Administration Docusate Sodium 250 mg 11/25/22 09:00 11/30/22 09:03 Docusate Sodium 250 Mg Capsule PO 250 mg DAILY AUTUMN Administration Famotidine 20 mg 11/24/22 21:00 11/30/22 09:03 Famotidine 20 Mg Tablet PO 20 mg BID AUTUMN Administration Furosemide 40 mg 11/30/22 09:00 11/30/22 09:03 Furosemide 40 Mg Tablet PO 40 mg DAILY AUTUMN Administration Guaifenesin 600 mg 11/27/22 22:03 11/30/22 09:03 Guaifenesin 600 Mg Tablet PO 600 mg BID AUTUMN Administration Levalbuterol HCl 1.25 mg 11/26/22 15:17 11/30/22 13:04 Levalbuterol 1.25 Mg/3 Ml Neb INH Not Given RTQID AUTUMN Meloxicam 15 mg 11/26/22 09:00 11/30/22 09:07 Meloxicam 7.5 Mg Tablet PO 15 mg DAILY AUTUMN Administration Metoprolol Succinate 100 mg 11/25/22 21:00 11/30/22 09:02 Metoprolol Succinate 50 Mg Tablet PO 100 mg BID AUTUMN Administration Montelukast Sodium 10 mg 11/24/22 21:00 11/29/22 20:53 Montelukast 10 Mg Tablet PO 10 mg HS AUTUMN Administration Multivitamins 1 tab 11/26/22 09:00 11/30/22 09:03 Multivitamin Tablet PO 1 tab DAILY AUTUMN Administration Polyethylene Glycol 17 gm 11/26/22 09:00 11/30/22 09:05 Polyethylene Glycol 3350 17 Gm Packet PO Not Given DAILY AUTUMN Saccharomyces Boulardii 250 mg 11/28/22 08:00 11/30/22 09:07 Saccharomyces Boulardii 250 Mg Capsule PO 250 mg BIDWM AUTUMN Administration Sodium Chloride 10 ml 11/24/22 17:00 11/30/22 09:05 Sodium Chloride Flush 0.9% 10 Ml Syringe IVP 10 ml 0100,0900,1700 AUTUMN Administration Sodium Chloride 10 ml 11/24/22 12:40 11/26/22 12:08 Sodium Chloride Flush 0.9% 10 Ml Syringe IVP 10 ml PRN PRN Administration NEEDED PER PROVIDER ORDERS Spironolactone 25 mg 11/26/22 12:00 11/30/22 11:04 Spironolactone 25 Mg Tablet PO 25 mg 1200 AUTUMN Administration Zinc Oxide 1 gm 11/24/22 18:00 11/30/22 09:07 Cod Liver Oil/Zinc Oxide 113 Gm Tube TOP 1 applic BID AUTUMN Administration - Lab Result Fish Bone Diagrams: 11/28/22 04:36 11/29/22 04:19 - Additional Planning My Orders: My Active Orders 11/29/22 13:06 Benzocaine/Menthol [Cepacol] 1 lozenge MM Q2HR PRN 11/30/22 09:00 Furosemide [Lasix] 40 mg PO DAILY 12/01/22 08:00 methylPREDNISolone [Medrol] 8 mg PO ONCE 12/02/22 08:00 methylPREDNISolone [Medrol] 4 mg PO ONCE Subjective - Subjective Patient Reports: Feeling Better, Other (Weak and "knees buckle" when stands to transfer) Objective Vital Signs: Vital Signs - 24 hr 11/29/22 11/29/22 11/29/22 15:09 15:22 20:30 Temperature 36.6 C 36.4 C L Heart Rate 66 Heart Rate [ 68 Brachial] Heart Rate [ 95 Monitoring electrodes] Respiratory 20 18 20 Rate Blood Pressure 116/78 [Left Brachial artery] Blood Pressure 140/80 H [Right Brachial artery] O2 Saturation 94 93 11/29/22 11/30/22 11/30/22 23:54 05:00 07:57 Temperature 36.3 C L 36.4 C L Heart Rate 70 Heart Rate [ Brachial] Heart Rate [ 63 75 Monitoring electrodes] Respiratory 18 20 20 Rate Blood Pressure 125/77 128/79 [Left Brachial artery] Blood Pressure [Right Brachial artery] O2 Saturation 93 95 11/30/22 11/30/22 08:36 13:00 Temperature 36.5 C 36.5 C Heart Rate Heart Rate [ 97 65 Brachial] Heart Rate [ Monitoring electrodes] Respiratory 20 20 Rate Blood Pressure 139/94 H 125/70 [Left Brachial artery] Blood Pressure [Right Brachial artery] O2 Saturation 94 97 Oxygen O2 Source Room air I&O (Last 24 Hrs): Intake and Output Totals x24h 11/28/22 11/29/22 11/30/22 23:59 23:59 23:59 Intake Total 1060 1165 500 Output Total 2150 1700 300 Balance -1090 -535 200 General: Alert, Oriented x3 HEENT: Mucous membr. moist/pink Neck: Supple, No JVD Neuro: Alert, Non Focal, Oriented Times 3 Cardiovascular: No murmurs Respiratory: No respiratory distress, Breath sounds nml Abdomen: Normal bowel sounds, Soft, Other (Obese) Extremities: No clubbing, No edema, No tenderness/swelling - Results Results: Laboratory Results WBC 9.5 x10^3/uL (4.8-10.8) 11/28/22 04:36 RBC 4.57 10^6/uL (4.20-5.40) 11/28/22 04:36 Hgb 14.4 g/dL (12.0-16.0) 11/28/22 04:36 Hct 44.1 % (37.0-47.0) 11/28/22 04:36 MCV 96.5 fL (81.0-99.0) 11/28/22 04:36 MCH 31.5 pg (27.0-31.0) H 11/28/22 04:36 MCHC 32.7 g/dL (32.0-36.0) 11/28/22 04:36 RDW 14.6 % (12.0-15.0) 11/28/22 04:36 Plt Count 263 10^3/uL (130-450) 11/28/22 04:36 MPV 10.3 fL (7.9-10.8) 11/28/22 04:36 Neut # (Auto) 8.7 10^3/uL (1.5-6.6) H 11/28/22 04:36 Lymph # (Auto) 0.3 10^3/uL (1.5-3.5) L 11/28/22 04:36 Esmeralda # (Auto) 0.5 10^3/uL (0.0-1.0) 11/28/22 04:36 Eos # (Auto) 0.0 10^3/uL (0.0-0.7) 11/28/22 04:36 Baso # (Auto) 0.0 10^3/uL (0.0-0.1) 11/28/22 04:36 Absolute Nucleated RBC 0.00 x10^3/uL 11/28/22 04:36 Nucleated RBC % 0.0 /100WBC 11/28/22 04:36 VBG pH 7.430 (7.31-7.41) H 11/27/22 05:20 Ionized Calcium 1.16 mmol/L (1.15-1.33) 11/27/22 05:20 Sodium 137 mmol/L (135-145) 11/29/22 04:19 Potassium 4.1 mmol/L (3.5-4.5) 11/29/22 04:19 Chloride 98 mmol/L (101-111) L 11/29/22 04:19 Carbon Dioxide 30 mmol/L (21-32) 11/29/22 04:19 Anion Gap 9.0 (6-13) 11/29/22 04:19 BUN 22 mg/dL (6-20) H 11/29/22 04:19 Creatinine 0.5 mg/dL (0.6-1.3) L 11/29/22 04:19 Estimated GFR (MDRD) 118 (>89) 11/29/22 04:19 Glucose 93 mg/dL (74-104) 11/29/22 04:19 Calcium 9.5 mg/dL (8.5-10.3) 11/29/22 04:19 Phosphorus 3.0 mg/dL (2.5-5.0) 11/27/22 05:20 Magnesium 2.0 mg/dL (1.7-2.3) 11/26/22 04:20 Total Bilirubin 0.9 mg/dL (0.2-1.0) 11/24/22 06:55 AST 33 IU/L (10-42) 11/24/22 06:55 ALT 17 IU/L (10-60) 11/24/22 06:55 Alkaline Phosphatase 71 IU/L (42-121) 11/24/22 06:55 Troponin I High Sens 193.9 ng/L (2.3-14.8) H* 11/24/22 09:56 B-Natriuretic Peptide 619 pg/mL (5-100) H 11/28/22 04:36 Total Protein 6.7 g/dL (6.4-8.9) 11/24/22 06:55 Albumin 4.1 g/dL (3.2-5.5) 11/24/22 06:55 Globulin 2.6 g/dL (2.1-4.2) 11/24/22 06:55 Albumin/Globulin Ratio 1.6 (1.0-2.2) 11/24/22 06:55 Lipase 12 U/L (11-82) 11/24/22 06:55 Nasal Adenovirus (PCR) NOT DETECTED 11/24/22 07:11 Nasal B. parapertussis DNA (PCR) NOT DETECTED 11/24/22 07:11 Nasal Coronavir 229E PCR NOT DETECTED 11/24/22 07:11 Nasal Coronavir HKU1 PCR NOT DETECTED 11/24/22 07:11 Nasal Coronavir NL63 PCR NOT DETECTED 11/24/22 07:11 Nasal Coronavir OC43 PCR NOT DETECTED 11/24/22 07:11 Nasal Enterovir/Rhinovir PCR NOT DETECTED 11/24/22 07:11 Nasal Influenza B PCR NOT DETECTED 11/24/22 07:11 Nasal Influenza A PCR NOT DETECTED 11/24/22 07:11 Nasal Parainfluen 1 PCR NOT DETECTED 11/24/22 07:11 Nasal Parainfluen 2 PCR NOT DETECTED 11/24/22 07:11 Nasal Parainfluen 3 PCR NOT DETECTED 11/24/22 07:11 Nasal Parainfluen 4 PCR NOT DETECTED 11/24/22 07:11 Nasal RSV (PCR) NOT DETECTED 11/24/22 07:11 Nasal Screen MRSA (PCR) NEGATIVE (NEGATIVE) 11/24/22 13:15 Nasal B.pertussis DNA PCR NOT DETECTED 11/24/22 07:11 Nasal C.pneumoniae (PCR) NOT DETECTED 11/24/22 07:11 Peng Human Metapneumo PCR NOT DETECTED 11/24/22 07:11 Nasal M.pneumoniae (PCR) NOT DETECTED 11/24/22 07:11 Nasal SARS-CoV-2 (PCR) NOT DETECTED 11/24/22 07:11 Last Dose Date 11-27-2022 11/28/22 04:36 Last Dose Time 90111/28/22 04:36 Digoxin 0.5 ng/mL 11/28/22 04:36
[2022-11-30] MEDS: ATORVASTATIN 10 MG TABLET PO SCH (21:59)
[2022-11-30] MEDS: MONTELUKAST 10 MG TABLET PO SCH (22:00)
[2022-12-01] MEDS: BUDESONIDE 0.5 MG/2 ML NEB INH SCH ×2 (06:28)
[2022-12-01] MEDS: LEVALBUTEROL 1.25 MG/3 ML NEB INH SCH ×4 (06:28→14:59)
[2022-12-01] MEDS: SODIUM CHLORIDE FLUSH 0.9% 10 ML SYRINGE IVP SCH ×2 (07:52→08:50)
[2022-12-01] MEDS ORDERED: methylPREDNISolone 4 MG TABLET PO SCH (08:00)
[2022-12-01] MEDS: METOPROLOL SUCCINATE 50 MG TABLET PO SCH (08:48)
[2022-12-01] MEDS: SACCHAROMYCES BOULARDII 250 MG CAPSULE PO SCH (08:48)
[2022-12-01] MEDS: guaiFENesin 600 MG TABLET PO SCH (08:48)
[2022-12-01] MEDS: CALCIUM CARBONATE CHEW 500 MG TABLET PO SCH (08:48)
[2022-12-01] MEDS: DOCUSATE SODIUM 250 MG CAPSULE PO SCH (08:49)
[2022-12-01] MEDS: FUROSEMIDE 40 MG TABLET PO SCH (08:49)
[2022-12-01] MEDS: APIXABAN 5 MG TABLET PO SCH (08:49)
[2022-12-01] MEDS: MELOXICAM 7.5 MG TABLET PO SCH (08:49)
[2022-12-01] MEDS: DIGOXIN 125 MCG TABLET PO SCH (08:49)
[2022-12-01] MEDS: ASPIRIN EC 81 MG TABLET PO SCH (08:49)
[2022-12-01] MEDS: MULTIVITAMIN TABLET PO SCH (08:49)
[2022-12-01] MEDS: polyethylene glycoL 3350 17 GM PACKET PO SCH (08:50)
[2022-12-01] MEDS: FAMOTIDINE 20 MG TABLET PO SCH (08:50)
[2022-12-01] MEDS: COD LIVER OIL/ZINC OXIDE 113 GM TUBE TOP SCH (08:50)
--- NOTE | 2022-12-01 10:21 | Discharge Plan ---
Discharge Plan Problem Reviewed?: Yes Disposition: 06 Home Health Service Condition: Fair Prescriptions: Spironolactone [Aldactone] 25 mg PO DAILY #30 tab Digoxin [Lanoxin] 125 mcg PO DAILY #30 tab Furosemide [Lasix] 40 mg PO DAILY #30 tab guaiFENesin [Mucinex] 600 mg PO BID #14 tab Metoprolol Succinate [Toprol Xl] 100 mg PO BID #120 tab Diet: Low Sodium Activity Restrictions: Activity as Tolerated Shower Restrictions: No Driving Restrictions: Yes Assistance Devices: Wheelchair, Walker Weight Bearing: Full Weight Instruction Topics: Heart Failure Diet Changes, Heart Failure Congestive Ch Health Concerns: You were hospitalized to treat a very rapid heart rate in atrial fib, and you had a pneumonia, and a CHF exacerbation (which caused fluid in your lungs). You finished your course of antibiotics for the pneumonia. You were on new medicines for the CHF. You are being discharged home today with several changes of medications. Please carefully follow the new list of medications and doses that you are being discharged home on. I ordered 1 more week of cough medicine Guaifenecin pills. All new prescriptions were electronically sent to your [facility] in [place]. You should see your primary care provider in the next 1 to 2 weeks for a hospital follow-up visit. One of your new medications (Digoxin) requires a blood test to be done soon, and Ting Bowles NP should order that blood test. A referral was sent to [facility] to provide you with in-home physical therapy, occupational therapy, and a nurse to check your vital signs and your fluid status, and a bath aide. Separate from that, it is advised that you have more caregivers in your house, that you need to hire, so that you do not fall and to give you support with transferring and toileting. Up until now your has done all of that and he needs help. Plan of Treatment: As above. Care Goals: Improvement in symptoms and stabilization are the goals. Assessment: The patient understands and is agreeable with the plan. Both of your sons were also advised of these recommendations. Additional Instructions or Follow Up instructions: If you have new or worsening symptoms, call your primary care provider for advice, or come to the ER. Follow-Up Care: Home Health - RN, Home Health - PT, Home Health - OT No Smoking: If you smoke, Please STOP! Call for help. Follow-up with: Ting Bowles ARNP [Primary Care Provider] -
[2022-12-01] MEDS: SPIRONOLACTONE 25 MG TABLET PO SCH (11:45)
--- NOTE | 2022-12-01 13:55 | DISCHARGE SUMMARY ---
Discharge Summary Admit Date: 11/24/22 Discharge Date: 12/01/22 Discharging Provider: Dr Pallavi Levy Primary Care Provider: BRANDON Bowles Code Status: Do Not Attempt Resuscitation Condition at Discharge: Fair Discharge Disposition: Home Health Service - [facility] History of Present Illness: This is an 82-year-old female who lives with her of 62 years. She has a history of asthma but is not on home oxygen. She has a history of chronic A-fib and has a Watchman device implanted about a year and a half ago. There is a history of cardiomyopathy with echo done February 2022 showing EF of 37%. Over the past 3 weeks she has developed shortness of breath, which was markedly worse yesterday and today. She presented to the ER today because of SOA and was found to have tachypnea RR 28, O2 desaturation of 89% on room air, and had wh eezing. She was given 3 nebulizer treatments and Solumedrol iv without significant benefit. Her chest x-ray was read as having a right middle lobe infiltrate. BNP elevated at 450 and troponin elevated at 271 then subsequent troponins trended down. She did not describe any chest pain. In addition, she presented in A-fib with RVR with heart rate of 120-130. She was given a dose of beta-nathaly IV x1 and had no significant change. The ED provider then spoke to me about this patient. She will be admitted to the ICU for a Cardizem drip to treat the A-fib with RVR and to treat her asthma exacerbation from a CAP. I discussed her RAQUEL HOGAN wishes and she wants to be a DNR/DNI. Moments before that her RN asked her about her RAQUEL HOGAN wishes and she says she wants everything done. By default I will leave her as a full code until I confirm with family or a POLST form that she wants to be DNR. - HOSPITAL COURSE Hospital Course: (1) Atrial fibrillation with RVR The pneumonia and asthma flare with respiratory distress added to the tachycardia. TSH was WNL, ruling out hyperthyroidism. She is now on higher dose of Toprol BID and new Dig po daily. Her HR is 50 and with rare 2 sec pauses at rest in Afib, but with activity her HR rises to 120-140 (i think from severe deconditioning). Her Dig level came back not toxic at 0.5, so the dose could be increased if needed. She reported that she has a Watchman device but a DOAC was listed on her med list. I continued her Eliquis, since it may need overlap if the device was recently implanted (2) Asthma exacerbation Likely from the pneumonia seen on chest x-ray. She was on nebs and iv steroids, which added to her confusion and were tapered down quickly. (3) CAP (community acquired pneumonia) She finished a 5-day course of empiric IV ceftriaxone and finished a course of Zithromax. Mucinex was continued for a persistent cough. (4) Acute on chronic systolic heart failure CXR showed pulm edema. She had a moderately elevated BNP of 450, and there was no old BNP for comparison. She has a Hx of cardiomyopathy with EF of 37% by Echo from 9 months ago. She had flat but mildly elevated troponins her, consistent with a type II [place] from the stress of the pneumonia and asthma flare and high heart rate. An Echo was done and showed global hypokinesis, LVEF 40%. She was treated with iv Lasix and the B-nathaly and new Spironolactone. She was not started on OUMAR or ARB, due to "soft" BP. She was discharged on the higher Toprol dose and Lasix 40 mg p.o. dose and Spironolactone. (5) Prerenal azotemia Her BUN/creatinine ratio andrew slightly from getting IV Lasix. BUN/creat at discharge were 22/0.5. (6) Confusion At admission, the patient was alert and oriented and providing good details. She became confused intermittently in ICU, talking about a pie in the oven. This EMR says that she has "cognitive deficits" which the confirmed. Her confusion was probably due to sleep deprivation, and iv steroids or ICU psychosis. The confusion resolved as the steroids were decreased. (7) Physical deconditioning She was extremely deconditioned, got very tachycardic from just sitting up to dangling. When she took a shower, PT let her "save her energy for the shower".Then we learned her home activity was to get up from bed, stand, and pivot and get in a wheelchair, and rarely walk to the bathroom w/ a walker. She declined going to a SNF for rehab, so Home Health for PT and OT were ordered. Also more caregiving help at home was advised and discussed with the and 2 sons at bedside. - ALLERGIES Allergies/Adverse Reactions: Allergies Allergy/AdvReac Type Severity Reaction Status Date / Time No Known Drug Allergies Allergy Verified 11/27/22 10:20 - MEDICATIONS Home Medications: Ambulatory Orders Medication Instructions Recorded Confirmed Atorvastatin [Lipitor] 20 mg PO DAILY 06/22/17 11/24/22 Multivitamin [Multiple Vitamins] 1 each PO DAILY 06/22/17 11/24/22 Ubidecarenone [Co Q-10] 100 mg PO DAILY 06/22/17 11/24/22 Cholecalciferol (Vitamin D3) 50 mcg PO DAILY 08/10/20 11/24/22 [Vitamin D3] Fluticasone Propion/Salmeterol 2 inh PO BID 08/10/20 11/24/22 [Wixela 100-50 Inhub] Calcium Carbonate [Calcium] 600 mg PO DAILY 07/10/21 11/24/22 Meloxicam [Mobic] 15 mg PO DAILY PRN 07/10/21 11/24/22 Aspirin [Aspirin EC] 81 mg PO DAILY 11/24/22 11/24/22 Docusate Sodium 250Mg Capsule 250 mg PO DAILY 11/24/22 11/24/22 [Colace 250Mg Capsule] Montelukast Sodium 10 mg PO HS 11/24/22 11/24/22 Oxymetazoline HCl [Afrin] 2 sprays LEAH Q12H 11/24/22 11/24/22 Apixaban [Eliquis] 5 mg PO BID tab 12/01/22 Digoxin [Lanoxin] 125 mcg PO DAILY #30 tab 12/01/22 Furosemide [Lasix] 40 mg PO DAILY #30 tab 12/01/22 Metoprolol Succinate [Toprol Xl] 100 mg PO BID #120 tab 12/01/22 Spironolactone [Aldactone] 25 mg PO DAILY #30 tab 12/01/22 guaiFENesin [Mucinex] 600 mg PO BID #14 tab 12/01/22 - PHYSICAL EXAM AT DISCHARGE General Appearance: positive: No acute distress, Alert Eyes Bilateral: positive: Normal inspection, EOMI ENT: positive: ENT inspection nml, No signs of dehydration Neck: positive: Nml inspection, No JVD Respiratory: positive: No respiratory distress, Breath sounds nml Cardiovascular: positive: No murmur (Distant heart sounds due to obesity and large breasts), Irregularly irregular Abdomen: positive: Non-tender, Other (Obese with a pannus) Skin: positive: Warm, Dry Extremities: positive: Non-tender, Other (Trace pedal edema) Neurologic/Psychiatric: positive: Oriented x3, Motor nml - LABS Result Diagrams: 11/28/22 04:36 11/29/22 04:19 - DIAGNOSTIC IMAGING Diagnostic Imaging Results: Final report reviewed - FOLLOW UP Follow Up: See PCP in 1-2 weeks for a hospital F/U visit. - TIME SPENT Time Spent in Discharge (Minutes): 50
[2022-12-01 15:52] VITALS: BP 110/61; O2SAT 93
[2022-12-02] MEDS ORDERED: methylPREDNISolone 4 MG TABLET PO SCH (08:00)
== END 2022-12-01 16:18 | disposition home health service (06) | DRG 308 ==
LOC: ED 06:33 → ICU 12:40 → MS3 11-26 15:48 → ICU 11-26 15:53 → MS3 11-26 16:17
PROVIDERS: ADMIT Internal Medicine; ATTEND Internal Medicine
DX: I48.91 Unspecified atrial fibrillation (principal); R06.02 Shortness of breath; I50.23 Acute on chronic systolic (congestive) heart failure; I50.9 Heart failure, unspecified; R77.8 Other specified abnormalities of plasma proteins; J18.9 Pneumonia, unspecified organism; J45.901 Unspecified asthma with (acute) exacerbation; I11.0 Hypertensive heart disease with heart failure; I42.9 Cardiomyopathy, unspecified; R09.02 Hypoxemia; Z20.822 Contact with and (suspected) exposure to COVID-19; E78.00 Pure hypercholesterolemia, unspecified; G47.30 Sleep apnea, unspecified; E66.9 Obesity, unspecified; R41.0 Disorientation, unspecified; R79.89 Other specified abnormal findings of blood chemistry; Z66 Do not resuscitate; Z68.34 Body mass index [BMI] 34.0-34.9, adult; Z79.82 Long term (current) use of aspirin; Z79.899 Other long term (current) drug therapy; Z80.41 Family history of malignant neoplasm of ovary; Z80.9 Family history of malignant neoplasm, unspecified; Z81.1 Family history of alcohol abuse and dependence; Z82.49 Family history of ischemic heart disease and other diseases of the circulatory system; Z86.39 Personal history of other endocrine, nutritional and metabolic disease
CPT/HCPCS: 36415; 71045; 80048; 80053; 80162; 82330; 83690; 83735; 83880; 84100; 84484; 85025; 87150; 87633; 93005; 93306; 94640; 96374; 96375; 96376; 97162; 97166; 99285; A9270; J7509; J7626